=== PATIENT | male | born 1955 | race African-American/Black ===

== ENCOUNTER → 2016-12-25 | Outpatient (CLI) | payer MEDICARE, MEDICAID | LOC: RAD 16:02 | PROVIDERS: ATTEND Physician Assistant | DX: M25.512 Pain in left shoulder (principal) ==

== ENCOUNTER → 2017-02-21 | Outpatient (CLI) | payer MEDICARE, MEDICAID | LOC: RAD 15:03 | PROVIDERS: ATTEND Specialist | DX: C90.02 Multiple myeloma in relapse (principal) | CPT/HCPCS: 77075 ==

== ENCOUNTER → 2017-07-01 | Outpatient (CLI) | payer MEDICARE, MEDICAID ==
[2017-07-01 12:49] LABS: HEMATOCRIT 43.6 % (37.9-51.0); HEMOGLOBIN 14.5 g/dL (13.5-17.0); HGB HCT DIFFERENCE -0.1; MEAN CORPUSCULAR HGB CONC 33.2 g/dL (32.0-36.0); MEAN CORPUSCULAR VOLUME 93 fl (80-97); RED BLOOD COUNT 4.67 10^6/uL (4.35-5.55); RED CELL DISTRIBUTION WIDTH 13.8 % (11.5-14.0); WHITE BLOOD COUNT 5.5 10^3/uL (4.0-10.5)
[2017-07-01 13:12] LABS: APPEARANCE,URINE CLEAR; BILIRUBIN,URINE NEGATIVE (NEGATIVE); GLUCOSE, URINE 50 mg/dL (NEGATIVE); KETONES,URINE NEGATIVE (NEGATIVE); LEUKOCYTE ESTERASE,URINE NEGATIVE (NEGATIVE); NITRITE,URINE NEGATIVE (NEGATIVE); PROTEIN,URINE 100 mg/dL (NEGATIVE); URINE SPECIFIC GRAVITY 1.013; UROBILINOGEN,URINE NEGATIVE mg/dL (<2.0)
[2017-07-01 13:16] LABS: ANION GAP 10 (5-19); BLOOD UREA NITROGEN 18 mg/dL (7-20); CALCIUM 8.3 mg/dL (8.4-10.2); CARBON DIOXIDE 16 mmol/L (22-30); CHLORIDE 112 mmol/L (98-107); CREATININE RESULT 2.26 mg/dL (0.52-1.25); GLUCOSE 188 mg/dL (75-110); PHOSPHORUS 2.8 mg/dL (2.5-4.5); POTASSIUM 4.2 mmol/L (3.6-5.0); SODIUM 137.9 mmol/L (137-145)
[2017-07-01 13:48] LABS: MAGNESIUM 1.3 mg/dL (1.6-2.3)
[2017-07-01 14:51] LABS: URINE CREATININE 160.1 mg/dL (22-328)
== END ==
LOC: OD 12:13
PROVIDERS: ATTEND Internal Medicine Nephrology
DX: N18.4 Chronic kidney disease, stage 4 (severe) (principal); E11.9 Type 2 diabetes mellitus without complications; R80.9 Proteinuria, unspecified; E83.42 Hypomagnesemia
CPT/HCPCS: 36415; 80048; 81001; 82570; 83735; 83970; 84100; 84156; 85027

== ENCOUNTER → 2017-09-01 | Outpatient (CLI) | payer MEDICARE, MEDICAID ==
[2017-09-01 12:50] LABS: HEMATOCRIT 41.4 % (37.9-51.0); HGB HCT DIFFERENCE 0.6; MEAN CORPUSCULAR HEMOGLOBIN 31.5 pg (27.0-33.4); MEAN CORPUSCULAR HGB CONC 33.9 g/dL (32.0-36.0); MEAN CORPUSCULAR VOLUME 93 fl (80-97); RED BLOOD COUNT 4.46 10^6/uL (4.35-5.55); RED CELL DISTRIBUTION WIDTH 14.4 % (11.5-14.0); WHITE BLOOD COUNT 4.5 10^3/uL (4.0-10.5)
[2017-09-01 13:21] LABS: ANION GAP 12 (5-19); BLOOD UREA NITROGEN 21 mg/dL (7-20); CALCIUM 8.3 mg/dL (8.4-10.2); CARBON DIOXIDE 18 mmol/L (22-30); CHLORIDE 112 mmol/L (98-107); CREATININE RESULT 1.95 mg/dL (0.52-1.25); GLUCOSE 233 mg/dL (75-110); MAGNESIUM 1.7 mg/dL (1.6-2.3); PHOSPHORUS 2.2 mg/dL (2.5-4.5); POTASSIUM 5.5 mmol/L (3.6-5.0); SODIUM 142.2 mmol/L (137-145)
== END ==
LOC: OD 11:07
PROVIDERS: ATTEND Internal Medicine Nephrology
DX: E11.22 Type 2 diabetes mellitus with diabetic chronic kidney disease (principal); I12.0 Hypertensive chronic kidney disease with stage 5 chronic kidney disease or end stage renal disease; N18.5 Chronic kidney disease, stage 5; R80.9 Proteinuria, unspecified; E83.42 Hypomagnesemia
CPT/HCPCS: 36415; 80048; 83735; 83970; 84100; 85027

== ENCOUNTER → 2017-10-19 | Outpatient (CLI) | payer MEDICARE, MEDICAID ==
[2017-10-19 14:26] LABS: HEMATOCRIT 39.1 % (37.9-51.0); HEMOGLOBIN 13.1 g/dL (13.5-17.0); HGB HCT DIFFERENCE 0.2; MEAN CORPUSCULAR HGB CONC 33.4 g/dL (32.0-36.0); MEAN CORPUSCULAR VOLUME 93 fl (80-97); RED BLOOD COUNT 4.21 10^6/uL (4.35-5.55); RED CELL DISTRIBUTION WIDTH 14.6 % (11.5-14.0); WHITE BLOOD COUNT 5.6 10^3/uL (4.0-10.5)
[2017-10-19 14:50] LABS: ANION GAP 14 (5-19); BLOOD UREA NITROGEN 22 mg/dL (7-20); CALCIUM 7.8 mg/dL (8.4-10.2); CARBON DIOXIDE 19 mmol/L (22-30); CHLORIDE 111 mmol/L (98-107); CREATININE RESULT 2.48 mg/dL (0.52-1.25); GLUCOSE 159 mg/dL (75-110); POTASSIUM 3.8 mmol/L (3.6-5.0); SODIUM 143.9 mmol/L (137-145)
[2017-10-19 14:59] LABS: MAGNESIUM 1.2 mg/dL (1.6-2.3)
== END ==
LOC: OD 13:18
PROVIDERS: ATTEND Internal Medicine Nephrology
DX: N18.4 Chronic kidney disease, stage 4 (severe) (principal); E87.5 Hyperkalemia; E83.42 Hypomagnesemia; E11.9 Type 2 diabetes mellitus without complications
CPT/HCPCS: 36415; 80048; 83735; 85027

== ENCOUNTER → 2017-11-23 | Outpatient (CLI) | payer MEDICARE, MEDICAID ==
[2017-11-23 14:20] LABS: ANION GAP 11 (5-19); BLOOD UREA NITROGEN 16 mg/dL (7-20); CALCIUM 8.5 mg/dL (8.4-10.2); CARBON DIOXIDE 21 mmol/L (22-30); CHLORIDE 109 mmol/L (98-107); GLUCOSE 334 mg/dL (75-110); MAGNESIUM 1.4 mg/dL (1.6-2.3); PHOSPHORUS 3.8 mg/dL (2.5-4.5); POTASSIUM 4.5 mmol/L (3.6-5.0); SODIUM 140.9 mmol/L (137-145)
== END ==
LOC: OD 13:19
PROVIDERS: ATTEND Internal Medicine Nephrology
DX: I12.9 Hypertensive chronic kidney disease with stage 1 through stage 4 chronic kidney disease, or unspecified chronic kidney disease (principal); N18.4 Chronic kidney disease, stage 4 (severe); E11.9 Type 2 diabetes mellitus without complications; E83.42 Hypomagnesemia
CPT/HCPCS: 36415; 80048; 83735; 83970; 84100

== ENCOUNTER → 2018-01-25 | Outpatient (CLI) | payer MEDICARE, MEDICAID ==
[2018-01-25 12:44] LABS: HEMATOCRIT 39.5 % (37.9-51.0); HEMOGLOBIN 13.1 g/dL (13.5-17.0); MEAN CORPUSCULAR HEMOGLOBIN 30.1 pg (27.0-33.4); MEAN CORPUSCULAR VOLUME 91 fl (80-97); PLATELET COUNT 220 10^3/uL (150-450); RED BLOOD COUNT 4.34 10^6/uL (4.35-5.55); RED CELL DISTRIBUTION WIDTH 14.3 % (11.5-14.0); WHITE BLOOD COUNT 5.9 10^3/uL (4.0-10.5)
[2018-01-25 13:00] LABS: ANION GAP 11 (5-19); BLOOD UREA NITROGEN 18 mg/dL (7-20); CALCIUM 8.7 mg/dL (8.4-10.2); CARBON DIOXIDE 22 mmol/L (22-30); CHLORIDE 109 mmol/L (98-107); GLUCOSE 130 mg/dL (75-110); PHOSPHORUS 3.6 mg/dL (2.5-4.5); POTASSIUM 4.5 mmol/L (3.6-5.0)
[2018-01-25 13:02] LABS: APPEARANCE,URINE CLEAR; BILIRUBIN,URINE NEGATIVE (NEGATIVE); COLOR,URINE STRAW; GLUCOSE, URINE NEGATIVE (NEGATIVE); KETONES,URINE NEGATIVE (NEGATIVE); LEUKOCYTE ESTERASE,URINE NEGATIVE (NEGATIVE); NITRITE,URINE NEGATIVE (NEGATIVE); PROTEIN,URINE 100 mg/dL (NEGATIVE); URINE SPECIFIC GRAVITY 1.008; UROBILINOGEN,URINE NEGATIVE mg/dL (<2.0)
== END ==
LOC: OD 11:48
PROVIDERS: ATTEND Physician Assistant Medical
DX: I12.9 Hypertensive chronic kidney disease with stage 1 through stage 4 chronic kidney disease, or unspecified chronic kidney disease (principal); N18.3 Chronic kidney disease, stage 3 (moderate); E83.42 Hypomagnesemia; E87.5 Hyperkalemia
CPT/HCPCS: 36415; 80048; 81001; 83735; 83970; 84100; 85027

== ENCOUNTER → 2018-03-08 | Outpatient (CLI) | payer MEDICARE, MEDICAID ==
[2018-03-08 16:54] LABS: HEMATOCRIT 40.6 % (37.9-51.0); HEMOGLOBIN 13.5 g/dL (13.5-17.0); MEAN CORPUSCULAR HEMOGLOBIN 30.1 pg (27.0-33.4); MEAN CORPUSCULAR HGB CONC 33.3 g/dL (32.0-36.0); MEAN CORPUSCULAR VOLUME 90 fl (80-97); PLATELET COUNT 156 10^3/uL (150-450); RED BLOOD COUNT 4.49 10^6/uL (4.35-5.55); RED CELL DISTRIBUTION WIDTH 15.3 % (11.5-14.0); WHITE BLOOD COUNT 6.1 10^3/uL (4.0-10.5)
[2018-03-08 17:13] LABS: APPEARANCE,URINE CLEAR; BILIRUBIN,URINE NEGATIVE (NEGATIVE); COLOR,URINE YELLOW; GLUCOSE, URINE 150 mg/dL (NEGATIVE); KETONES,URINE NEGATIVE (NEGATIVE); LEUKOCYTE ESTERASE,URINE NEGATIVE (NEGATIVE); NITRITE,URINE NEGATIVE (NEGATIVE); PROTEIN,URINE 100 mg/dL (NEGATIVE); URINE SPECIFIC GRAVITY 1.012; UROBILINOGEN,URINE NEGATIVE mg/dL (<2.0)
[2018-03-08 17:18] LABS: ANION GAP 15 (5-19); BLOOD UREA NITROGEN 21 mg/dL (7-20); CALCIUM 8.6 mg/dL (8.4-10.2); CARBON DIOXIDE 19 mmol/L (22-30); CHLORIDE 111 mmol/L (98-107); GLUCOSE 167 mg/dL (75-110); PHOSPHORUS 2.9 mg/dL (2.5-4.5); POTASSIUM 4.4 mmol/L (3.6-5.0); SODIUM 145.4 mmol/L (137-145)
== END ==
LOC: OD 16:25
PROVIDERS: ATTEND Internal Medicine Nephrology
DX: I12.9 Hypertensive chronic kidney disease with stage 1 through stage 4 chronic kidney disease, or unspecified chronic kidney disease (principal); N18.3 Chronic kidney disease, stage 3 (moderate); E87.5 Hyperkalemia; E83.42 Hypomagnesemia
CPT/HCPCS: 36415; 80048; 81001; 83735; 83970; 84100; 85027

== ENCOUNTER → 2018-04-19 | Outpatient (CLI) | payer MEDICARE, MEDICAID ==
[2018-04-19 17:43] LABS: ANION GAP 11 (5-19); BLOOD UREA NITROGEN 29 mg/dL (7-20); CARBON DIOXIDE 18 mmol/L (22-30); CHLORIDE 112 mmol/L (98-107); GLUCOSE 236 mg/dL (75-110); POTASSIUM 3.9 mmol/L (3.6-5.0); SODIUM 140.9 mmol/L (137-145)
== END ==
LOC: OD 16:27
PROVIDERS: ATTEND Physician Assistant Medical
DX: E83.42 Hypomagnesemia (principal); E83.51 Hypocalcemia; N18.3 Chronic kidney disease, stage 3 (moderate)
CPT/HCPCS: 36415; 80048; 83735

== ENCOUNTER 2018-04-20 16:16 | Emergency (ER) | payer MEDICARE, MEDICAID ==
--- NOTE | 2018-04-20 17:18 | ER Document Report ---
ED Medical Screen (RME) - General Mode of Arrival: Ambulatory Information source: Patient TRAVEL OUTSIDE OF THE [place] IN LAST 30 DAYS: No <SELINA LAO - Last Filed: 04/20/18 21:24> <BRENDAN FLORES - Last Filed: 04/20/18 21:30> - General Chief Complaint: Thigh Pain Stated Complaint: LEG PAIN Time Seen by Provider: 04/20/18 17:05 Notes: Patient is a 62-year-old male that was sent in from urgent care to rule out DVT in the right lower extremity. Patient states that for the last 3 nights from about [id number] he has been awoken with right thigh pain. Patient denies flank pain, dysuria, constipation, leg swelling, chest pain, shortness of breath, long trips, recent surgeries, or hormone usage. Review of systems: Constitutional: No symptoms reported EENT: No symptoms reported Cardiovascular: No symptoms reported Respiratory: No symptoms reported Gastrointestinal: No symptoms reported Genitourinary: No symptoms reported Musculoskeletal: Right thigh pain. Skin: No symptoms reported Hematologic/Lymphatic: No symptoms reported Neurological/Psychological: No symptoms reported Yes All other systems reviewed and negative PHYSICAL EXAM GENERAL: Alert, interacts well. No acute distress. HEAD: Normocephalic, atraumatic. EYES: Pupils equal, round, and reactive to light. Extraocular movements intact. ENT: Oral mucosa moist, tongue midline. NECK: Full range of motion. Supple. Trachea midline. LUNGS: Clear to auscultation bilaterally, no wheezes, rales, or rhonchi. No respiratory distress. HEART: Regular rate and rhythm. No murmurs, gallops, or rubs. ABDOMEN: Soft, non-tender. Non-distended. Bowel sounds present in all 4 quadrants. No guarding, rigidity, or rebound. EXTREMITIES: Moves all 4 extremities spontaneously. 1+ pitting edema to bilateral lower extremities. radial and dorsalis pedis pulses 2/4 bilaterally. No cyanosis. No tenderness with palpation on examination of the right thigh. Unable to reproduce pain with ROM. NEUROLOGICAL: Alert and oriented x3. Normal speech. PSYCH: Normal affect, normal mood. SKIN: Warm, dry, normal turgor. No rashes or lesions noted. (SELINA LAO) - Related Data Allergies/Adverse Reactions: No Known Allergies Allergy (Verified 04/20/18 16:17) Past Medical History - Social History Chew tobacco use (# tins/day): No Frequency of alcohol use: None Drug Abuse: None - Past Medical History Cardiac Medical History: Reports: Hx Hypertension Denies: Hx Coronary Artery Disease, Hx Heart Attack Pulmonary Medical History: Denies: Hx Asthma, Hx Bronchitis, Hx COPD, Hx Pneumonia Neurological Medical History: Reports: Hx Seizures. Denies: Hx Cerebrovascular Accident Endocrine Medical History: Reports: Hx Diabetes Mellitus Type 1, Hx Diabetes Mellitus Type 2 Renal/ Medical History: Denies: Hx Peritoneal Dialysis Musculoskeltal Medical History: Reports Hx Arthritis - shoulder Past Surgical History: Reports: Hx Orthopedic Surgery - toe - Immunizations Hx Diphtheria, Pertussis, Tetanus Vaccination: No <SELINA LAO - Last Filed: 04/20/18 21:24> - Vital signs Vitals: Temp Pulse Resp BP Pulse Ox 98.3 F 49 L 17 212/90 H 98 04/20/18 16:27 04/20/18 16:27 04/20/18 16:27 04/20/18 16:27 04/20/18 16:27 Course - Laboratory Result Diagrams: 04/20/18 17:45 04/20/18 17:45 <SELINA LAO - Last Filed: 04/20/18 21:24> - Laboratory Result Diagrams: 04/20/18 17:45 04/20/18 17:45 <BRENDAN FLORES - Last Filed: 04/20/18 21:30> - Re-evaluation Re-evalutation: 04/20/18 19:47 CBC unremarkable, coags normal, chemistries reveal mild dehydration with a CO2 slightly low 21, BUN and creatinine are chronically elevated no significant change from normal, glucose elevated 248 consistent with history of diabetes that is not well controlled. Doppler ultrasound of the right leg was negative. At present I do not have an exact explanation for why he is having right upper inner thigh pain although it does follow approximately the L2 distribution. Does not radiate beyond the knee. No numbness, tingling, weakness. No bowel or bladder dysfunction. No history of trauma. No difficulty walking. No evidence of shingles. (BRENDAN FLORES) - Vital Signs Vital signs: Temp Pulse Resp BP Pulse Ox 97.7 F 51 L 18 199/79 H 100 04/20/18 20:17 04/20/18 20:17 04/20/18 20:17 04/20/18 20:17 04/20/18 20:17 - Laboratory Laboratory results interpreted by me: 04/20/18 04/20/18 17:45 17:45 RDW 14.5 H Chloride 109 H Carbon Dioxide 21 L BUN 30 H Creatinine 2.81 H Est GFR ( Amer) 28 L Est GFR (Non-Af Amer) 23 L Glucose 248 H Doctor's Discharge <SELINA LAO - Last Filed: 04/20/18 21:24> <BRENDAN FLORES - Last Filed: 04/20/18 21:30> - Discharge Clinical Impression: Right thigh pain Condition: Stable Disposition: HOME, SELF-CARE Additional Instructions: Today we did not find a blood clot on your leg on ultrasound. I do not know exactly what is causing your pain. Your pain could be coming from a variety of things including an early sign of shingles without the rash or a pinched nerve in your back that is causing pain to go to your leg. Please return to the emergency department should you develop fevers, difficulty walking, rash on your leg where it is painful, numbness or tingling or difficulty urinating or having a bowel movement or any new or concerning symptoms. Today your blood pressure was quite high. [facility] It will need retirement management Referrals: MOSES LOPEZ PA-C [ALLIED HEALTH PROFESSIONAL] - Follow up as needed Scribe Documentation - Scribe Written by Ryan:: Ryan Duncan, 04/20/2018 1717 acting as scribe for :: Velia <SELINA LAO - Last Filed: 04/20/18 21:24>
[2018-04-20 18:00] LABS: ABSOLUTE BASOPHILS # (AUTO) 0.1 10^3/uL (0.0-0.2); ABSOLUTE EOSINOPHILS # (AUTO) 0.1 10^3/uL (0.0-0.6); ABSOLUTE LYMPHOCYTES (AUTO) 2.5 10^3/uL (0.5-4.7); ABSOLUTE MONOCYTES (AUTO) 0.4 10^3/uL (0.1-1.4); ABSOLUTE NEUT (AUTO) 3.3 10^3/uL (1.7-8.2); BASOPHILS % (AUTO) 1.2 % (0-2); EOSINOPHILS % (AUTO) 2.3 % (0-6); HEMATOCRIT 44.7 % (37.9-51.0); HEMOGLOBIN 14.9 g/dL (13.5-17.0); LYMPHOCYTES % (AUTO) 39.4 % (13-45); MEAN CORPUSCULAR HEMOGLOBIN 30.5 pg (27.0-33.4); MEAN CORPUSCULAR HGB CONC 33.4 g/dL (32.0-36.0); MEAN CORPUSCULAR VOLUME 91 fl (80-97); MONOCYTES % (AUTO) 6.3 % (3-13); PLATELET COUNT 182 10^3/uL (150-450); RED BLOOD COUNT 4.89 10^6/uL (4.35-5.55); RED CELL DISTRIBUTION WIDTH 14.5 % (11.5-14.0); SEGMENTED NEUTROPHILS % (AUTO) 50.8 % (42-78); TOTAL CELLS COUNTED % (AUTO) 100 %; WHITE BLOOD COUNT 6.4 10^3/uL (4.0-10.5)
[2018-04-20 18:10] LABS: INTERNATIONAL RATION (INR) 1.03; PARTIAL THROMBOPLASTIN TIME 27.7 SEC (23.5-35.8); PROTHROMBIN TIME 14.1 SEC (11.4-15.4)
[2018-04-20 18:20] LABS: ANION GAP 13 (5-19); BLOOD UREA NITROGEN 30 mg/dL (7-20); CALCIUM 8.9 mg/dL (8.4-10.2); CARBON DIOXIDE 21 mmol/L (22-30); CHLORIDE 109 mmol/L (98-107); GLUCOSE 248 mg/dL (75-110); POTASSIUM 4.1 mmol/L (3.6-5.0)
[2018-04-20 20:18] VITALS: BP 199/79
--- NOTE | 2018-04-21 08:38 | XCELERA REPORT ---
[address] [address] Lower Extremity Venous Evaluation Name: JUAN ROSSI Age: 62 yrs Gender: Male : 1955 Patient Status: Preadmit Patient Location: ER Study Date: 04/20/2018 06:28 PM Procedure: Color flow and duplex imaging of the veins of the right lower extremity as well as the left Common Femoral vein. Reason For Study: right thigh pain Ordering Physician: BRENDAN FLORES Performed By: Etelvina Love Right Sided Venous Evaluation Normal vessel filling wall to wall, compression and augmentation as well as Colour flow down to the infrageniculate veins. Left Sided Venous Evaluation The left common femoral vein is fully compressible. Spontaneous and phasic flow is present in the left common femoral vein. Swirling blood noted in CFV, Colour flow useful in identifying this. Interpretation Summary No duplex evidence of DVT or obstruction in the right lower extremity nor in the left Common Femoral vein. : BRENDAN FLORES > Adriano Franklin
== END 2018-04-20 20:18 | disposition home or self-care (01) ==
LOC: ER 16:16
DX: M79.651 Pain in right thigh (principal); I10 Essential (primary) hypertension; E11.9 Type 2 diabetes mellitus without complications
CPT/HCPCS: 36415; 80048; 85025; 85610; 85730; 93971; 99284

== ENCOUNTER → 2018-04-26 | Outpatient (CLI) | payer MEDICARE, MEDICAID ==
--- NOTE | 2018-04-26 12:15 | RADIOLOGY REPORT (SQ) ---
EXAM DESCRIPTION: FEMUR RIGHT COMPLETED DATE/TIME: 04/26/2018 12:05 pm REASON FOR STUDY: PAIN IN RIGHT LEG COMPARISON: Right hip films same date NUMBER OF VIEWS: Two views. TECHNIQUE: Two radiographic images acquired of the right femur to include hip and knee in at least o ne projection. LIMITATIONS: None. FINDINGS: MINERALIZATION: Normal. BONES: No acute fracture. No worrisome bone lesions. SOFT TISSUES: No obvious swelling or foreign body. OTHER: No other significant finding. IMPRESSION: NEGATIVE STUDY OF THE RIGHT FEMUR. NO RADIOGRAPHIC EVIDENCE OF ACUTE INJURY. TECHNICAL DOCUMENTATION: JOB ID: [id number] [employer]- All Rights Reserved Reading location - IP/workstation name: [email or web address]
--- NOTE | 2018-04-26 12:24 | RADIOLOGY REPORT (SQ) ---
EXAM DESCRIPTION: HIP RIGHT AP/LATERAL COMPLETED DATE/TIME: 04/26/2018 12:05 pm REASON FOR STUDY: PAIN IN RIGHT LEG COMPARISON: None. NUMBER OF VIEWS: Two views. TECHNIQUE: AP pelvis and additional frog-leg view of the right hip. LIMITATIONS: None. FINDINGS: MINERALIZATION: Normal. RIGHT HIP: No fracture or dislocation. No worrisome bone lesions. LEFT HIP: No fracture or dislocation. No worrisome bone lesions. PUBIS AND ISCHIUM: No fracture. PELVIS: No fracture. SACRUM: No fracture or dislocation. No worrisome bone lesions. LOWER LUMBAR SPINE: No fracture or dislocation. No worrisome bone lesions. No significant disc disea se. SOFT TISSUES: No findings. OTHER: Moderate amount of fecal material is identified in the colon. IMPRESSION: NEGATIVE STUDY OF THE RIGHT HIP. NO RADIOGRAPHIC EVIDENCE OF ACUTE INJURY. TECHNICAL DOCUMENTATION: JOB ID: [id number] [employer]- All Rights Reserved Reading location - IP/workstation name: [email or web address]
== END ==
LOC: RAD 11:35
PROVIDERS: ATTEND Physician Assistant
DX: M79.604 Pain in right leg (principal)

== ENCOUNTER 2018-06-05 16:22 | Emergency (ER) | payer MEDICARE, MEDICAID ==
--- NOTE | 2018-06-05 17:59 | ER Document Report ---
ED Medical Screen (RME) - General Chief Complaint: Abnormal Lab Results Stated Complaint: ABNORMAL LABS Time Seen by Provider: 06/05/18 17:51 Notes: pt sent to ED for high K+ of 6.3. Denies CP, denies n/v/d, reports leg pains for one month. Consulted dr martinez with ekg, c/o, advised repeat labs. TRAVEL OUTSIDE OF THE [place] IN LAST 30 DAYS: No - Related Data Allergies/Adverse Reactions: No Known Allergies Allergy (Verified 06/05/18 16:25) Past Medical History - Past Medical History Cardiac Medical History: Reports: Hx Hypertension Denies: Hx Coronary Artery Disease, Hx Heart Attack Pulmonary Medical History: Denies: Hx Asthma, Hx Bronchitis, Hx COPD, Hx Pneumonia Neurological Medical History: Reports: Hx Seizures. Denies: Hx Cerebrovascular Accident Endocrine Medical History: Reports: Hx Diabetes Mellitus Type 1, Hx Diabetes Mellitus Type 2 Renal/ Medical History: Denies: Hx Peritoneal Dialysis Musculoskeltal Medical History: Reports Hx Arthritis - shoulder Past Surgical History: Reports: Hx Orthopedic Surgery - toe - Immunizations Hx Diphtheria, Pertussis, Tetanus Vaccination: No Physical Exam - Vital signs Vitals: Temp Pulse Resp BP 99.1 F 84 20 138/81 H 06/05/18 17:41 06/05/18 17:41 06/05/18 17:41 06/05/18 17:41 Course - Vital Signs Vital signs: Temp Pulse Resp BP Pulse Ox 99.1 F 84 20 138/81 H 06/05/18 17:41 06/05/18 17:41 06/05/18 17:41 06/05/18 17:41 Doctor's Discharge - Discharge Referrals: MOSES LOPEZ PA-C [Primary Care Provider] - Follow up as needed
--- NOTE | 2018-06-05 20:20 | ER Document Report ---
ED General - General Chief Complaint: Abnormal Lab Results Stated Complaint: ABNORMAL LABS Time Seen by Provider: 06/05/18 17:51 Mode of Arrival: Ambulatory Information source: Patient Notes: This is a 62-year-old male with a history of hypertension, diabetes and chronic kidney disease is referred to the emergency room because of an elevated potassium. Patient denies any illnesses lately. Denies fever, chills, nausea vomiting. TRAVEL OUTSIDE OF THE [place] IN LAST 30 DAYS: No - HPI Onset: Just prior to arrival Onset/Duration: Gradual Quality of pain: No pain Severity: None Pain Level: Denies Associated symptoms: denies: Chest pain, Diarrhea, Fever, Nausea, Vomiting, Shortness of breath Exacerbated by: Denies Relieved by: Denies Similar symptoms previously: Yes Recently seen / treated by doctor: Yes - Related Data Allergies/Adverse Reactions: No Known Allergies Allergy (Verified 06/05/18 16:25) Past Medical History - General Information source: Patient - Social History Smoking Status: Never Smoker Cigarette use (# per day): No Chew tobacco use (# tins/day): No Frequency of alcohol use: None Drug Abuse: None Lives with: Family Family History: Reviewed & Not Pertinent Patient has suicidal ideation: No Patient has homicidal ideation: No - Past Medical History Cardiac Medical History: Reports: Hx Hypertension Denies: Hx Coronary Artery Disease, Hx Heart Attack Pulmonary Medical History: Denies: Hx Asthma, Hx Bronchitis, Hx COPD, Hx Pneumonia Neurological Medical History: Reports: Hx Seizures. Denies: Hx Cerebrovascular Accident Endocrine Medical History: Reports: Hx Diabetes Mellitus Type 1, Hx Diabetes Mellitus Type 2 Renal/ Medical History: Denies: Hx Peritoneal Dialysis Musculoskeletal Medical History: Reports Hx Arthritis - shoulder Past Surgical History: Reports: Hx Orthopedic Surgery - toe - Immunizations Hx Diphtheria, Pertussis, Tetanus Vaccination: No Review of Systems - Review of Systems Constitutional: denies: Chills, Fever EENT: No symptoms reported Cardiovascular: No symptoms reported Respiratory: No symptoms reported Gastrointestinal: See HPI Genitourinary: No symptoms reported Male Genitourinary: No symptoms reported Musculoskeletal: No symptoms reported Skin: No symptoms reported Hematologic/Lymphatic: No symptoms reported Neurological/Psychological: No symptoms reported Physical Exam - Vital signs Vitals: Temp Pulse Resp BP 99.1 F 84 20 138/81 H 06/05/18 17:41 06/05/18 17:41 06/05/18 17:41 06/05/18 17:41 Notes: Physical exam: GENERAL: 82-year-old man, alert and oriented 3, no acute distress HEAD: Atraumatic, normocephalic. EYES: Pupils equal round and reactive to light, extraocular movements intact, sclera anicteric, conjunctiva are normal. ENT: TMs normal, nares patent, oropharynx clear without exudates. Moist mucous membranes. NECK: Normal range of motion, supple without obvious mass or JVD. LUNGS: Breath sounds clear to auscultation bilaterally and equal. No wheezes rales or rhonchi. HEART: Regular rate and rhythm without murmurs, rubs or gallops. ABDOMEN: Soft, normoactive bowel sounds. No tenderness to palpation. No guarding, no rebound. No masses appreciated. EXTREMITIES: Normal range of motion, no pitting or edema. No clubbing or cyanosis. NEUROLOGICAL: Cranial nerves II through XII grossly intact. Normal speech, moving all extremities. PSYCH: Normal mood, normal affect. SKIN: Warm, Dry, normal turgor, no rashes or lesions noted. Course - Re-evaluation Re-evalutation: 06/05/18 23:32 Note: Patient's initial potassium was 6.3. On repeat it was 5.7. The EKG shows no hyperacute T waves. Patient was given insulin, D50, Kayexalate. He has remained asymptomatic his vital signs have been stable. Discussed case with Dr. Hendricks who recommends the seeing the benazepril, calcium sandhya for blood pressure, Kayexalate. He wants to see the patient in the office in the morning. He will recommend repeating the potassium in the a.m. before his appointment. - Vital Signs Vital signs: Temp Pulse Resp BP Pulse Ox 99.1 F 84 19 184/90 H 100 06/05/18 17:41 06/05/18 17:41 06/05/18 21:00 06/05/18 20:53 06/05/18 21:00 - Laboratory Result Diagrams: 06/05/18 19:55 06/05/18 19:55 Laboratory results interpreted by me: 06/05/18 19:55 Potassium 5.7 H Carbon Dioxide 21 L BUN 37 H Creatinine 2.83 H Est GFR ( Amer) 28 L Est GFR (Non-Af Amer) 23 L Glucose 300 H Alkaline Phosphatase 139 H - EKG Interpretation by Me Rate: Normal Rhythm: NSR - EKG shows normal sinus rhythm with a ventricular rate of 81, no acute ST-T wave changes. No hyperacute T waves Discharge - Discharge Clinical Impression: Hyperkalemia Condition: Stable Disposition: HOME, SELF-CARE Additional Instructions: As we discussed, to come back to the [facility] for potassium test first thing in the morning. I did discuss your lab values with Dr. Hendricks who wants to see you in the office tomorrow. I want you to stop the blood pressure medicine (Benazepril/HCTZ) because the benazepril can sometimes increase the potassium. Start taking the Cardizem CD for your blood pressure. Return to the emergency room for any concerns that she getting worse: Vomiting, nausea, not feeling right. Whenever you getting antibiotics or any new medicines, tell the doctors that she had a problem with an elevated potassium in the past. Prescriptions: Diltiazem HCl [Cardizem Cd 120 mg Capsule] 1 cap.sr PO DAILY #30 cap.sr Sodium Polystyrene Sulfonate [Kayexalate 15 Gm/60 Ml Susp 60 Ml] 15 gm PO Q6 3 Days #3 bottle Forms: Follow-Up Laboratory Testing Referrals: MOSES LOPEZ PA-C [ALLIED HEALTH PROFESSIONAL] - Follow up as needed Franky HENDRICKS MD [ACTIVE STAFF] - Follow up tomorrow
[2018-06-05 20:30] LABS: ABSOLUTE BASOPHILS # (AUTO) 0.1 10^3/uL (0.0-0.2); ABSOLUTE EOSINOPHILS # (AUTO) 0.1 10^3/uL (0.0-0.6); ABSOLUTE MONOCYTES (AUTO) 0.5 10^3/uL (0.1-1.4); ABSOLUTE NEUT (AUTO) 4.6 10^3/uL (1.7-8.2); BASOPHILS % (AUTO) 0.9 % (0-2); EOSINOPHILS % (AUTO) 1.4 % (0-6); HEMATOCRIT 40.7 % (37.9-51.0); HEMOGLOBIN 13.5 g/dL (13.5-17.0); LYMPHOCYTES % (AUTO) 36.4 % (13-45); MEAN CORPUSCULAR HEMOGLOBIN 30.3 pg (27.0-33.4); MEAN CORPUSCULAR HGB CONC 33.3 g/dL (32.0-36.0); MEAN CORPUSCULAR VOLUME 91 fl (80-97); PLATELET COUNT 356 10^3/uL (150-450); RED BLOOD COUNT 4.48 10^6/uL (4.35-5.55); RED CELL DISTRIBUTION WIDTH 13.5 % (11.5-14.0); SEGMENTED NEUTROPHILS % (AUTO) 55.3 % (42-78); TOTAL CELLS COUNTED % (AUTO) 100 %; WHITE BLOOD COUNT 8.3 10^3/uL (4.0-10.5)
[2018-06-05 20:38] LABS: ALANINE AMINOTRANSFERASE 60 U/L (21-72); ALBUMIN 4.2 g/dL (3.5-5.0); ALKALINE PHOSPHATASE 139 U/L (38-126); ANION GAP 12 (5-19); ASPARTATE AMINO TRANSFERASE 45 U/L (17-59); BILIRUBIN,DIRECT 0.4 mg/dL (0.0-0.4); BILIRUBIN,TOTAL 0.4 mg/dL (0.2-1.3); BLOOD UREA NITROGEN 37 mg/dL (7-20); CALCIUM 9.6 mg/dL (8.4-10.2); CARBON DIOXIDE 21 mmol/L (22-30); CHLORIDE 104 mmol/L (98-107); GLUCOSE 300 mg/dL (75-110); POTASSIUM 5.7 mmol/L (3.6-5.0); SODIUM 137.2 mmol/L (137-145); TOTAL PROTEIN 7.4 g/dL (6.3-8.2)
[2018-06-05] MEDS ORDERED: DEXTROSE 50%-WATER 25 GM/50 ML DISP.SYRIN IV ONE (21:14)
[2018-06-05] MEDS ORDERED: SODIUM POLYSTYRENE SULFONATE 15 GM/60 ML PO ONE (21:14)
[2018-06-05] MEDS ORDERED: INSULIN REG, HUMAN 100 UNIT/ML 3 ML VIAL (PYX) IV ONE (21:14)
--- NOTE | 2018-06-05 22:06 | EKG REPORT ---
SEVERITY:- NORMAL ECG - SINUS RHYTHM : Confirmed by: Jovanna Riggins MD 05-Jun-2018 22:05:51
[2018-06-06 00:08] VITALS: BP 150/78
== END 2018-06-06 00:04 | disposition home or self-care (01) ==
LOC: ER 16:22
DX: E87.5 Hyperkalemia (principal); I10 Essential (primary) hypertension; E11.9 Type 2 diabetes mellitus without complications
CPT/HCPCS: 93005; 99284; 96374; 36415; 83735; 84100; 84156; 82570; 85025; 85027; 80048; 80053; 83970; 93010; J3490; A9270; J1815

== ENCOUNTER → 2018-06-05 | Outpatient (CLI) | payer MEDICARE, MEDICAID ==
[2018-06-05 12:38] LABS: HEMATOCRIT 37.5 % (37.9-51.0); HEMOGLOBIN 12.7 g/dL (13.5-17.0); MEAN CORPUSCULAR HEMOGLOBIN 30.2 pg (27.0-33.4); MEAN CORPUSCULAR HGB CONC 33.9 g/dL (32.0-36.0); MEAN CORPUSCULAR VOLUME 89 fl (80-97); PLATELET COUNT 321 10^3/uL (150-450); RED CELL DISTRIBUTION WIDTH 13.4 % (11.5-14.0); WHITE BLOOD COUNT 7.3 10^3/uL (4.0-10.5)
[2018-06-05 13:50] LABS: ANION GAP 10 (5-19); BLOOD UREA NITROGEN 39 mg/dL (7-20); CALCIUM 8.9 mg/dL (8.4-10.2); CARBON DIOXIDE 22 mmol/L (22-30); CHLORIDE 105 mmol/L (98-107); GLUCOSE 216 mg/dL (75-110); PHOSPHORUS 4.8 mg/dL (2.5-4.5); SODIUM 137.3 mmol/L (137-145)
[2018-06-05 13:54] LABS: POTASSIUM 6.3 mmol/L (3.6-5.0)
[2018-06-05 14:46] LABS: URINE CREATININE 70.1 mg/dL (22-328)
[2018-06-05 14:49] LABS: UR PRO/CREAT RATIO RESULT 3.9 mg/mg (0.0-0.2); URINE PROTEIN 274.4 mg/dL (<12)
== END ==
LOC: OD 11:30
PROVIDERS: ATTEND Physician Assistant Medical
DX: I12.9 Hypertensive chronic kidney disease with stage 1 through stage 4 chronic kidney disease, or unspecified chronic kidney disease (principal); N18.3 Chronic kidney disease, stage 3 (moderate); R80.9 Proteinuria, unspecified; E11.9 Type 2 diabetes mellitus without complications
CPT/HCPCS: 36415; 80048; 82570; 83735; 83970; 84100; 84156; 85027

== ENCOUNTER → 2018-06-06 | Outpatient (CLI) | payer MEDICARE, MEDICAID | LOC: OD 10:55 | PROVIDERS: ATTEND Emergency Medicine | DX: E87.5 Hyperkalemia (principal) | CPT/HCPCS: 36415; 84132 ==

== ENCOUNTER → 2018-09-01 | Outpatient (CLI) | payer MEDICARE, MEDICAID ==
[2018-09-01 15:38] LABS: HEMATOCRIT 38.8 % (37.9-51.0); HEMOGLOBIN 12.9 g/dL (13.5-17.0); MEAN CORPUSCULAR HEMOGLOBIN 31.8 pg (27.0-33.4); MEAN CORPUSCULAR HGB CONC 33.3 g/dL (32.0-36.0); MEAN CORPUSCULAR VOLUME 96 fl (80-97); PLATELET COUNT 188 10^3/uL (150-450); RED BLOOD COUNT 4.06 10^6/uL (4.35-5.55); RED CELL DISTRIBUTION WIDTH 14.1 % (11.5-14.0); WHITE BLOOD COUNT 6.1 10^3/uL (4.0-10.5)
[2018-09-01 15:41] LABS: APPEARANCE,URINE CLEAR; BILIRUBIN,URINE NEGATIVE (NEGATIVE); COLOR,URINE STRAW; GLUCOSE, URINE >=500 mg/dL (NEGATIVE); KETONES,URINE NEGATIVE (NEGATIVE); LEUKOCYTE ESTERASE,URINE NEGATIVE (NEGATIVE); NITRITE,URINE NEGATIVE (NEGATIVE); PROTEIN,URINE 100 mg/dL (NEGATIVE); UROBILINOGEN,URINE NEGATIVE mg/dL (<2.0)
[2018-09-01 16:06] LABS: ANION GAP 11 (5-19); BLOOD UREA NITROGEN 24 mg/dL (7-20); CALCIUM 9.5 mg/dL (8.4-10.2); CARBON DIOXIDE 21 mmol/L (22-30); CHLORIDE 106 mmol/L (98-107); GLUCOSE 338 mg/dL (75-110); PHOSPHORUS 4.5 mg/dL (2.5-4.5); POTASSIUM 4.3 mmol/L (3.6-5.0); SODIUM 137.6 mmol/L (137-145)
== END ==
LOC: OD 14:46
PROVIDERS: ATTEND Physician Assistant Medical
DX: E11.22 Type 2 diabetes mellitus with diabetic chronic kidney disease (principal); I12.9 Hypertensive chronic kidney disease with stage 1 through stage 4 chronic kidney disease, or unspecified chronic kidney disease; N18.4 Chronic kidney disease, stage 4 (severe); E87.5 Hyperkalemia
CPT/HCPCS: 36415; 80048; 81001; 83970; 84100; 85027

== ENCOUNTER → 2019-01-18 | Outpatient (CLI) | payer MEDICARE, MEDICAID ==
[2019-01-18 13:32] LABS: HEMOGLOBIN 13.8 g/dL (13.5-17.0); MEAN CORPUSCULAR HEMOGLOBIN 31.6 pg (27.0-33.4); MEAN CORPUSCULAR HGB CONC 33.6 g/dL (32.0-36.0); MEAN CORPUSCULAR VOLUME 94 fl (80-97); PLATELET COUNT 157 10^3/uL (150-450); RED BLOOD COUNT 4.36 10^6/uL (4.35-5.55); RED CELL DISTRIBUTION WIDTH 14.2 % (11.5-14.0); WHITE BLOOD COUNT 7.5 10^3/uL (4.0-10.5)
[2019-01-18 13:44] LABS: ANION GAP 10 (5-19); BLOOD UREA NITROGEN 42 mg/dL (7-20); CALCIUM 9.6 mg/dL (8.4-10.2); CARBON DIOXIDE 19 mmol/L (22-30); CHLORIDE 107 mmol/L (98-107); GLUCOSE 377 mg/dL (75-110); PHOSPHORUS 3.8 mg/dL (2.5-4.5); POTASSIUM 5.6 mmol/L (3.6-5.0); SODIUM 135.5 mmol/L (137-145)
[2019-01-18 13:50] LABS: APPEARANCE,URINE SLIGHTLY-CLOUDY; BILIRUBIN,URINE NEGATIVE (NEGATIVE); COLOR,URINE YELLOW; GLUCOSE, URINE >=500 mg/dL (NEGATIVE); KETONES,URINE NEGATIVE (NEGATIVE); LEUKOCYTE ESTERASE,URINE NEGATIVE (NEGATIVE); NITRITE,URINE NEGATIVE (NEGATIVE); PROTEIN,URINE 100 mg/dL (NEGATIVE); UROBILINOGEN,URINE NEGATIVE mg/dL (<2.0)
== END ==
LOC: OD 12:55
PROVIDERS: ATTEND Physician Assistant Medical
DX: I12.9 Hypertensive chronic kidney disease with stage 1 through stage 4 chronic kidney disease, or unspecified chronic kidney disease (principal); N18.4 Chronic kidney disease, stage 4 (severe)
CPT/HCPCS: 36415; 80048; 81001; 83970; 84100; 85027

== ENCOUNTER → 2019-01-25 | Outpatient (CLI) | payer MEDICARE, MEDICAID | LOC: OD 10:56 | PROVIDERS: ATTEND Physician Assistant Medical | DX: Z53.9 Procedure and treatment not carried out, unspecified reason (principal) ==

== ENCOUNTER → 2019-02-01 | Outpatient (CLI) | payer MEDICARE, MEDICAID ==
[2019-02-01 12:58] LABS: ABSOLUTE BASOPHILS # (AUTO) 0.1 10^3/uL (0.0-0.2); ABSOLUTE EOSINOPHILS # (AUTO) 0.3 10^3/uL (0.0-0.6); ABSOLUTE LYMPHOCYTES (AUTO) 2.6 10^3/uL (0.5-4.7); ABSOLUTE MONOCYTES (AUTO) 0.5 10^3/uL (0.1-1.4); BASOPHILS % (AUTO) 0.7 % (0-2); EOSINOPHILS % (AUTO) 3.5 % (0-6); HEMATOCRIT 41.1 % (37.9-51.0); HEMOGLOBIN 14.1 g/dL (13.5-17.0); LYMPHOCYTES % (AUTO) 34.8 % (13-45); MEAN CORPUSCULAR HEMOGLOBIN 31.9 pg (27.0-33.4); MEAN CORPUSCULAR HGB CONC 34.4 g/dL (32.0-36.0); MEAN CORPUSCULAR VOLUME 93 fl (80-97); MONOCYTES % (AUTO) 6.9 % (3-13); PLATELET COUNT 165 10^3/uL (150-450); RED BLOOD COUNT 4.43 10^6/uL (4.35-5.55); RED CELL DISTRIBUTION WIDTH 14.1 % (11.5-14.0); SEGMENTED NEUTROPHILS % (AUTO) 54.1 % (42-78); TOTAL CELLS COUNTED % (AUTO) 100 %; WHITE BLOOD COUNT 7.4 10^3/uL (4.0-10.5)
[2019-02-01 13:10] LABS: ALANINE AMINOTRANSFERASE 76 U/L (21-72); ALBUMIN 3.9 g/dL (3.5-5.0); ALKALINE PHOSPHATASE 74 U/L (38-126); ANION GAP 13 (5-19); ASPARTATE AMINO TRANSFERASE 38 U/L (17-59); BILIRUBIN,DIRECT 0.3 mg/dL (0.0-0.4); BILIRUBIN,TOTAL 0.3 mg/dL (0.2-1.3); BLOOD UREA NITROGEN 48 mg/dL (7-20); CARBON DIOXIDE 18 mmol/L (22-30); CHLORIDE 108 mmol/L (98-107); CHOLESTEROL 121.82 mg/dL (0-200); GLUCOSE 147 mg/dL (75-110); POTASSIUM 4.5 mmol/L (3.6-5.0); SODIUM 138.7 mmol/L (137-145); TOTAL PROTEIN 6.5 g/dL (6.3-8.2); TRIGLYCERIDES 91 mg/dL (<150)
[2019-02-01 13:21] LABS: DIRECT LDL 68 mg/dL (<100)
[2019-02-01 15:03] LABS: ANION GAP 13 (5-19); BLOOD UREA NITROGEN 48 mg/dL (7-20); CARBON DIOXIDE 18 mmol/L (22-30); CHLORIDE 108 mmol/L (98-107); GLUCOSE 147 mg/dL (75-110); POTASSIUM 4.5 mmol/L (3.6-5.0); SODIUM 138.7 mmol/L (137-145)
== END ==
LOC: LAB 12:15
PROVIDERS: ATTEND Family Medicine
DX: E78.5 Hyperlipidemia, unspecified (principal); E11.22 Type 2 diabetes mellitus with diabetic chronic kidney disease; I12.9 Hypertensive chronic kidney disease with stage 1 through stage 4 chronic kidney disease, or unspecified chronic kidney disease; N18.4 Chronic kidney disease, stage 4 (severe)
CPT/HCPCS: 36415; 80048; 80053; 80061; 83036; 85025

== ENCOUNTER → 2019-02-13 | Outpatient (CLI) | payer MEDICARE, MEDICAID ==
--- NOTE | 2019-02-13 11:03 | RADIOLOGY REPORT (SQ) ---
EXAM DESCRIPTION: U/S RETROPERITON (RENAL/AORTA) COMPLETED DATE/TIME: 02/13/2019 10:42 am REASON FOR STUDY: ACUTE KIDNEY FAILURE, UNSPECIFIED (N17.9) N18.3 CHRONIC KIDNEY DISEASE, STAGE 3 ( MODERATE) N17.9 ACUTE KIDNEY FAILURE, UNSPECIFIED COMPARISON: None. TECHNIQUE: Dynamic and static grayscale images acquired of the kidneys and bladder and recorded on P ACS. Additional selected color Doppler and spectral images recorded. LIMITATIONS: None. FINDINGS: RIGHT KIDNEY: The right kidney measures 8.9 cm x 5.0 cm, normal size. Normal echogenicit y. No solid or suspicious masses. No hydronephrosis. No calcifications. LEFT KIDNEY: The left kidney measures 9.0 cm x 4.3 cm, normal size. Normal echogenicity. No solid or suspicious masses. No hydronephrosis. No calcifications. BLADDER: No masses. Slight to mild debris within the urinary bladder lumen. The prostate gland is enlarged and measures 4.8 x 3.9 x 5.2 cm. There is indentation on the base of the urinary bladder ma y be related to hypertrophy of the median lobe of the prostate gland. Mild thickening of the urinary bladder wall. OTHER FINDINGS: No other significant finding. IMPRESSION: 1. NORMAL RENAL ULTRASOUND. 2. Bladder volumes as above. TECHNICAL DOCUMENTATION: JOB ID: [id number] [employer]- All Rights Reserved Reading location - IP/workstation name: [email or web address]
== END ==
LOC: RAD 09:22
PROVIDERS: ATTEND Physician Assistant Medical
DX: N17.9 Acute kidney failure, unspecified (principal); N18.3 Chronic kidney disease, stage 3 (moderate)
CPT/HCPCS: 76770

== ENCOUNTER → 2019-03-05 | Outpatient (CLI) | payer MEDICARE, MEDICAID ==
[2019-03-05 13:54] LABS: HEMOGLOBIN 13.6 g/dL (13.5-17.0); MEAN CORPUSCULAR HEMOGLOBIN 31.2 pg (27.0-33.4); MEAN CORPUSCULAR VOLUME 92 fl (80-97); PLATELET COUNT 168 10^3/uL (150-450); RED BLOOD COUNT 4.35 10^6/uL (4.35-5.55); RED CELL DISTRIBUTION WIDTH 13.8 % (11.5-14.0); WHITE BLOOD COUNT 5.5 10^3/uL (4.0-10.5)
[2019-03-05 14:14] LABS: UR PRO/CREAT RATIO RESULT 1.4 mg/mg (0.0-0.2); URINE CREATININE 89.8 mg/dL (22-328); URINE PROTEIN 121.6 mg/dL (<12)
[2019-03-05 14:24] LABS: ANION GAP 10 (5-19); BLOOD UREA NITROGEN 34 mg/dL (7-20); CALCIUM 9.7 mg/dL (8.4-10.2); CARBON DIOXIDE 18 mmol/L (22-30); CHLORIDE 107 mmol/L (98-107); GLUCOSE 390 mg/dL (75-110); SODIUM 135.1 mmol/L (137-145)
== END ==
LOC: OD 13:21
PROVIDERS: ATTEND Physician Assistant Medical
DX: E11.22 Type 2 diabetes mellitus with diabetic chronic kidney disease (principal); I12.9 Hypertensive chronic kidney disease with stage 1 through stage 4 chronic kidney disease, or unspecified chronic kidney disease; N18.3 Chronic kidney disease, stage 3 (moderate); E87.5 Hyperkalemia; E87.2 Acidosis
CPT/HCPCS: 36415; 80048; 82570; 83970; 84156; 85027

== ENCOUNTER → 2019-05-11 | Outpatient (CLI) | payer MEDICARE, MEDICAID ==
[2019-05-11 12:12] LABS: HEMATOCRIT 37.7 % (37.9-51.0); HEMOGLOBIN 12.5 g/dL (13.5-17.0); MEAN CORPUSCULAR HEMOGLOBIN 30.6 pg (27.0-33.4); MEAN CORPUSCULAR HGB CONC 33.2 g/dL (32.0-36.0); MEAN CORPUSCULAR VOLUME 92 fl (80-97); PLATELET COUNT 155 10^3/uL (150-450); RED BLOOD COUNT 4.09 10^6/uL (4.35-5.55); RED CELL DISTRIBUTION WIDTH 13.8 % (11.5-14.0)
[2019-05-11 12:41] LABS: ANION GAP 7 (5-19); BLOOD UREA NITROGEN 27 mg/dL (7-20); CALCIUM 9.2 mg/dL (8.4-10.2); CARBON DIOXIDE 27 mmol/L (22-30); CHLORIDE 102 mmol/L (98-107); GLUCOSE 396 mg/dL (75-110); PHOSPHORUS 3.6 mg/dL (2.5-4.5); POTASSIUM 4.6 mmol/L (3.6-5.0); SODIUM 136.1 mmol/L (137-145)
[2019-05-11 12:41] LABS: APPEARANCE,URINE CLEAR; BILIRUBIN,URINE NEGATIVE (NEGATIVE); COLOR,URINE YELLOW; GLUCOSE, URINE >=500 mg/dL (NEGATIVE); KETONES,URINE NEGATIVE (NEGATIVE); LEUKOCYTE ESTERASE,URINE NEGATIVE (NEGATIVE); NITRITE,URINE NEGATIVE (NEGATIVE); PROTEIN,URINE 100 mg/dL (NEGATIVE); URINE SPECIFIC GRAVITY 1.011; UROBILINOGEN,URINE NEGATIVE mg/dL (<2.0)
== END ==
LOC: OD 11:51
PROVIDERS: ATTEND Physician Assistant Medical
DX: N18.3 Chronic kidney disease, stage 3 (moderate) (principal); I12.9 Hypertensive chronic kidney disease with stage 1 through stage 4 chronic kidney disease, or unspecified chronic kidney disease; E11.9 Type 2 diabetes mellitus without complications; E87.2 Acidosis; N25.0 Renal osteodystrophy
CPT/HCPCS: 36415; 80048; 81001; 83970; 84100; 85027

== ENCOUNTER → 2019-09-02 | Outpatient (CLI) | payer MEDICARE, MEDICAID ==
--- NOTE | 2019-09-02 17:26 | RADIOLOGY REPORT (SQ) ---
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 TECHNIQUE: Multiplanar imaging includes non-contrasted T1, T2, FLAIR, and diffusion with ADC map seq uences. Additional thin section images acquired through the orbits. Images stored on PACS. LIMITATIONS: None. FINDINGS: ANATOMY: No anomalies. Normal vascular flow voids. Pituitary fossa normal. CSF SPACES: Normal in size and contour. No hemorrhage. CEREBRUM: Sulci and gyri normal in size and contour. Normal white matter signal on FLAIR imaging. No evidence of hemorrhage, mass, or extraaxial fluid collection. POSTERIOR FOSSA: No signal alteration. No hemorrhage. No edema, masses or mass effect. Internal govind tory canals, cerebello-pontine angles, mastoids normal. DIFFUSION IMAGING: Negative for acute or sub-acute infarction. ORBITS: No masses. Globes normal. PARANASAL SINUSES: Prominent mucous membrane thickening in the maxillary, ethmoid, and sphenoid sinu ses. Fluid in the left maxillary sinus. OTHER: No other significant finding. IMPRESSION: 1. NORMAL MRI OF THE BRAIN AND ORBITS WITHOUT INTRAVENOUS GADOLINIUM CONTRAST. 2. SINUS DISEASE. EVIDENCE OF ACUTE STROKE: NO. TECHNICAL DOCUMENTATION: JOB ID: [id number] [employer]- All Rights Reserved Reading location - IP/workstation name: [email or web address]
== END ==
LOC: RAD 14:42
PROVIDERS: ATTEND Ophthalmology
DX: H53.8 Other visual disturbances (principal); H47.293 Other optic atrophy, bilateral
CPT/HCPCS: 70551; 82565

== ENCOUNTER → 2019-09-10 | Outpatient (CLI) | payer MEDICARE, MEDICAID ==
[2019-09-10 14:10] LABS: HEMATOCRIT 40.5 % (37.9-51.0); HEMOGLOBIN 13.5 g/dL (13.5-17.0); MEAN CORPUSCULAR HEMOGLOBIN 30.8 pg (27.0-33.4); MEAN CORPUSCULAR HGB CONC 33.3 g/dL (32.0-36.0); MEAN CORPUSCULAR VOLUME 93 fl (80-97); PLATELET COUNT 170 10^3/uL (150-450); RED BLOOD COUNT 4.38 10^6/uL (4.35-5.55); RED CELL DISTRIBUTION WIDTH 14.2 % (11.5-14.0); WHITE BLOOD COUNT 6.1 10^3/uL (4.0-10.5)
[2019-09-10 14:20] LABS: APPEARANCE,URINE CLEAR; BILIRUBIN,URINE NEGATIVE (NEGATIVE); COLOR,URINE YELLOW; GLUCOSE, URINE 150 mg/dL (NEGATIVE); KETONES,URINE NEGATIVE (NEGATIVE); LEUKOCYTE ESTERASE,URINE NEGATIVE (NEGATIVE); NITRITE,URINE NEGATIVE (NEGATIVE); PROTEIN,URINE 100 mg/dL (NEGATIVE); URINE SPECIFIC GRAVITY 1.012; UROBILINOGEN,URINE NEGATIVE mg/dL (<2.0)
[2019-09-10 14:28] LABS: ANION GAP 8 (5-19); BLOOD UREA NITROGEN 26 mg/dL (7-20); CALCIUM 9.2 mg/dL (8.4-10.2); CARBON DIOXIDE 22 mmol/L (22-30); CHLORIDE 106 mmol/L (98-107); GLUCOSE 233 mg/dL (75-110); POTASSIUM 4.5 mmol/L (3.6-5.0)
[2019-09-10 14:48] LABS: URINE CREATININE 81.5 mg/dL (22-328)
[2019-09-10 15:01] LABS: UR PRO/CREAT RATIO RESULT 2.9 mg/mg (0.0-0.2); URINE PROTEIN 237.7 mg/dL (<12)
== END ==
LOC: OD 13:31
PROVIDERS: ATTEND Physician Assistant Medical
DX: E11.22 Type 2 diabetes mellitus with diabetic chronic kidney disease (principal); I12.9 Hypertensive chronic kidney disease with stage 1 through stage 4 chronic kidney disease, or unspecified chronic kidney disease; N18.3 Chronic kidney disease, stage 3 (moderate); N17.9 Acute kidney failure, unspecified; E87.5 Hyperkalemia; E87.2 Acidosis
CPT/HCPCS: 36415; 80048; 81001; 82570; 83735; 83970; 84100; 84156; 85027

== ENCOUNTER → 2019-11-19 | Outpatient (CLI) | payer MEDICARE, MEDICAID ==
[2019-11-19 15:35] LABS: ABSOLUTE BASOPHILS # (AUTO) 0.1 10^3/uL (0.0-0.2); ABSOLUTE EOSINOPHILS # (AUTO) 0.2 10^3/uL (0.0-0.6); ABSOLUTE LYMPHOCYTES (AUTO) 2.7 10^3/uL (0.5-4.7); ABSOLUTE MONOCYTES (AUTO) 0.6 10^3/uL (0.1-1.4); ABSOLUTE NEUT (AUTO) 5.3 10^3/uL (1.7-8.2); BASOPHILS % (AUTO) 0.7 % (0-2); EOSINOPHILS % (AUTO) 2.6 % (0-6); HEMATOCRIT 42.1 % (37.9-51.0); HEMOGLOBIN 14.2 g/dL (13.5-17.0); LYMPHOCYTES % (AUTO) 30.8 % (13-45); MEAN CORPUSCULAR HEMOGLOBIN 31.3 pg (27.0-33.4); MEAN CORPUSCULAR HGB CONC 33.7 g/dL (32.0-36.0); MEAN CORPUSCULAR VOLUME 93 fl (80-97); MONOCYTES % (AUTO) 6.5 % (3-13); PLATELET COUNT 236 10^3/uL (150-450); RED BLOOD COUNT 4.53 10^6/uL (4.35-5.55); RED CELL DISTRIBUTION WIDTH 13.5 % (11.5-14.0); SEGMENTED NEUTROPHILS % (AUTO) 59.4 % (42-78); TOTAL CELLS COUNTED % (AUTO) 100 %; WHITE BLOOD COUNT 8.9 10^3/uL (4.0-10.5)
[2019-11-19 15:56] LABS: ALBUMIN 3.8 g/dL (3.5-5.0); ALKALINE PHOSPHATASE 98 U/L (38-126); ASPARTATE AMINO TRANSFERASE 68 U/L (17-59); BILIRUBIN,DIRECT 0.3 mg/dL (0.0-0.4); BILIRUBIN,TOTAL 0.4 mg/dL (0.2-1.3); CREATINE KINASE 83 U/L (55-170)
[2019-11-19 16:41] LABS: ERYTHROCYTE SEDIMENTATION RATE 18 mm/hr (0-20)
[2019-11-19 17:04] LABS: C-REACTIVE PROTEIN < 5.0 mg/L (<10.0)
== END ==
LOC: OD 14:54
PROVIDERS: ATTEND Ophthalmology
DX: H53.8 Other visual disturbances (principal)
CPT/HCPCS: 36415; 80076; 82550; 82607; 82746; 84425; 85025; 85652; 86140; 86592

== ENCOUNTER → 2019-12-12 | Outpatient (CLI) | payer MEDICARE, MEDICAID ==
--- NOTE | 2019-12-12 12:35 | RADIOLOGY REPORT (SQ) ---
EXAM DESCRIPTION: HAND RIGHT 3 VIEWS COMPLETED DATE/TIME: 12/12/2019 12:07 pm REASON FOR STUDY: UNSP INJURY OF RIGHT WRIST, HAND AND FINGER(S), INIT ENCNTR S69.91XA UNSP INJURY OF RIGHT WRIST, HAND AND FINGER(S), INI COMPARISON: None. EXAM PARAMETERS: NUMBER OF VIEWS: Three views. TECHNIQUE: AP, lateral and oblique radiographic images acquired of the right hand. LIMITATIONS: None. FINDINGS: MINERALIZATION: Normal. BONES: No acute fracture or dislocation. No worrisome bone lesions. JOINTS: No effusions. SOFT TISSUES: Soft tissue swelling at the dorsal aspect of the distal 2nd digit. No radiopaque forei gn body. OTHER: No other significant finding. IMPRESSION: Soft tissue swelling at the dorsal aspect of the distal 2nd digit. No acute bony abnorm ality. No radiopaque foreign body. TECHNICAL DOCUMENTATION: JOB ID: [id number] [employer]- All Rights Reserved Reading location - IP/workstation name: [email or web address]
== END ==
LOC: OD 11:31
PROVIDERS: ATTEND Family Medicine
DX: S69.91XA Unspecified injury of right wrist, hand and finger(s), initial encounter (principal); X58.XXXA Exposure to other specified factors, initial encounter; M79.89 Other specified soft tissue disorders

== ENCOUNTER → 2019-12-14 | Outpatient (CLI) | payer MEDICARE, MEDICAID ==
[2019-12-14 10:57] LABS: HEMATOCRIT 37.8 % (37.9-51.0); HEMOGLOBIN 12.7 g/dL (13.5-17.0); MEAN CORPUSCULAR HEMOGLOBIN 31.1 pg (27.0-33.4); MEAN CORPUSCULAR HGB CONC 33.5 g/dL (32.0-36.0); MEAN CORPUSCULAR VOLUME 93 fl (80-97); PLATELET COUNT 194 10^3/uL (150-450); RED BLOOD COUNT 4.08 10^6/uL (4.35-5.55); RED CELL DISTRIBUTION WIDTH 13.9 % (11.5-14.0); WHITE BLOOD COUNT 8.6 10^3/uL (4.0-10.5)
[2019-12-14 11:26] LABS: ANION GAP 14 (5-19); BLOOD UREA NITROGEN 60 mg/dL (7-20); CALCIUM 9.1 mg/dL (8.4-10.2); CARBON DIOXIDE 19 mmol/L (22-30); CHLORIDE 103 mmol/L (98-107); GLUCOSE 234 mg/dL (75-110); PHOSPHORUS 7.1 mg/dL (2.5-4.5); POTASSIUM 4.7 mmol/L (3.6-5.0)
[2019-12-14 11:31] LABS: ABSOLUTE LYMPHOCYTES# (MANUAL) 2.9 10^3/uL (0.5-4.7); ABSOLUTE MONOCYTES # (MANUAL) 0.3 10^3/uL (0.1-1.4); BASOPHILS % (MANUAL) 1 % (0-2); EOSINOPHILS % (MANUAL) 3 % (0-6); LYMPHOCYTES % (MANUAL) 33 % (13-45); MONOCYTES % (MANUAL) 3 % (3-13); NUCLEATED RED BLOOD CELLS 1 /100 WBC (0); SEGMENTED NEUTROPHILS % (MAN) 59 % (42-78); TOTAL CELLS COUNTED 100
[2019-12-14 11:33] LABS: PLATELET COMMENT ADEQUATE; RBC MORPHOLOGY COMMENT NORMO-CYTIC/CHROMIC
[2019-12-14 11:58] LABS: APPEARANCE,URINE CLEAR; BILIRUBIN,URINE NEGATIVE (NEGATIVE); COLOR,URINE STRAW; GLUCOSE, URINE >=500 mg/dL (NEGATIVE); KETONES,URINE NEGATIVE (NEGATIVE); LEUKOCYTE ESTERASE,URINE NEGATIVE (NEGATIVE); NITRITE,URINE NEGATIVE (NEGATIVE); PROTEIN,URINE 100 mg/dL (NEGATIVE); URINE SPECIFIC GRAVITY 1.008; UROBILINOGEN,URINE NEGATIVE mg/dL (<2.0)
[2019-12-14 12:32] LABS: UR PRO/CREAT RATIO RESULT 2.5 mg/mg (0.0-0.2); URINE CREATININE 46.9 mg/dL (22-328); URINE PROTEIN 117.6 mg/dL (<12)
== END ==
LOC: OD 10:21
PROVIDERS: ATTEND Physician Assistant Medical
DX: I12.9 Hypertensive chronic kidney disease with stage 1 through stage 4 chronic kidney disease, or unspecified chronic kidney disease (principal); N18.4 Chronic kidney disease, stage 4 (severe); E11.22 Type 2 diabetes mellitus with diabetic chronic kidney disease; N25.0 Renal osteodystrophy; R80.9 Proteinuria, unspecified; E87.5 Hyperkalemia
CPT/HCPCS: 36415; 80048; 81001; 82570; 83735; 83970; 84100; 84156; 85025

== ENCOUNTER 2020-01-17 16:15 | Inpatient (IN) | payer MEDICARE, MEDICAID ==
[2020-01-17] MEDS ORDERED: NORMAL SALINE 1000 ML 1,000 ML IV ONE (16:33)
--- NOTE | 2020-01-17 16:35 | ER Document Report ---
ED Medical Screen (RME) - General Chief Complaint: Abnormal Lab Results Stated Complaint: ABNORMAL LABS Time Seen by Provider: 01/17/20 16:29 Primary Care Provider: PEDRO RODRIGUEZ MD [Primary Care Provider] - Follow up as needed Notes: HPI: 64-year-old male who is a patient of Dr. Rodriguez sent over for evaluation of abnormal labs drawn today. Patient states that he was given antibiotics for a finger infection at the beginning of December and shortly afterwards began having copious amounts of diarrhea. Patient states that Imodium has not really resolve the diarrhea. No abdominal pain no fever. Patient had lab work drawn by Dr. Rodriguez today and was called at home and told to come to the emergency department for evaluation no chest pain or shortness of breath. I have greeted and performed a rapid initial assessment of this patient. A comprehensive ED assessment and evaluation of the patient, analysis of test results and completion of the medical decision making process will be conducted by additional ED providers PHYSICAL EXAMINATION: GENERAL: Well-appearing, well-nourished and in no acute distress. HEAD: Atraumatic, normocephalic. EYES: sclera anicteric, conjunctiva are normal. ENT: Moist mucous membranes. NECK: Normal range of motion LUNGS: Normal work of breathing HEART: 2+ radial pulses bilaterally ABD: limited by positioning for exam in triage. EXTREMITIES: no pitting or edema. No cyanosis. NEUROLOGICAL: No focal neurological deficits. Moves all extremities spontaneously and on command. PSYCH: Normal mood, normal affect. SKIN: Warm, Dry, normal turgor, no rashes or lesions noted. Patient's BUN/creatinine are noted to be 66 and 7.11 which is a significant difference from previous lab work TRAVEL OUTSIDE OF THE [place] IN LAST 30 DAYS: No - Related Data Allergies/Adverse Reactions: No Known Allergies Allergy (Verified 01/17/20 16:25) Past Medical History - Past Medical History Cardiac Medical History: Reports: Hx Hypertension Denies: Hx Coronary Artery Disease, Hx Heart Attack Pulmonary Medical History: Denies: Hx Asthma, Hx Bronchitis, Hx COPD, Hx Pneumonia Neurological Medical History: Reports: Hx Seizures. Denies: Hx Cerebrovascular Accident Endocrine Medical History: Reports: Hx Diabetes Mellitus Type 1, Hx Diabetes Mellitus Type 2 Renal/ Medical History: Denies: Hx Peritoneal Dialysis Musculoskeltal Medical History: Reports Hx Arthritis - shoulder Past Surgical History: Reports: Hx Orthopedic Surgery - toe - Immunizations Hx Diphtheria, Pertussis, Tetanus Vaccination: No Physical Exam - Vital signs Vitals: Temp Pulse Resp BP Pulse Ox 97.4 F 67 16 133/52 H 100 01/17/20 16:19 01/17/20 16:19 01/17/20 16:19 01/17/20 16:19 01/17/20 16:19 Course - Vital Signs Vital signs: Temp Pulse Resp BP Pulse Ox 97.4 F 67 16 133/52 H 100 01/17/20 16:19 01/17/20 16:19 01/17/20 16:19 01/17/20 16:19 01/17/20 16:19 Doctor's Discharge - Discharge Referrals: PEDRO RODRIGUEZ MD [Primary Care Provider] - Follow up as needed
--- NOTE | 2020-01-17 17:25 | EKG REPORT ---
SEVERITY:- ABNORMAL ECG - SINUS RHYTHM PROBABLE LEFT VENTRICULAR HYPERTROPHY BORDERLINE INFERIOR Q WAVES : Confirmed by: Maged Avalos MD 17-Jan-2020 17:24:44
[2020-01-17] MEDS ORDERED: IPRATROPIUM/ALBUTEROL 0.5-2.5 MG/3 ML AMPUL NEB PRN (17:49)
[2020-01-17] MEDS ORDERED: ACETAMINOPHEN 325 MG TABLET PO PRN (17:49)
[2020-01-17] MEDS ORDERED: 1/2 NORMAL SALINE 1,000 ML with SODIUM BICARBONATE 100 MEQ IV ONE ×2 (17:49)
--- NOTE | 2020-01-17 17:58 | ER Document Report ---
ED General - General Chief Complaint: Abnormal Lab Results Stated Complaint: ABNORMAL LABS Time Seen by Provider: 01/17/20 16:29 TRAVEL OUTSIDE OF THE [place] IN LAST 30 DAYS: No - HPI Notes: 64-year-old male referred here by Dr. Ordoñez with suspected C. difficile colitis and acute on chronic renal failure. This man was seen in Dr. Ordoñez's office around 25 December and was started on an oral antibiotic for an infection of his right index finger associated with an injury. While he was taking the antibiotic he developed diarrhea which is been persistent. This man has baseline stage IV kidney disease not currently being dialyzed. Dr. Decker had seen him in the office couple days ago and prescribed Flagyl for him which patient waited to get filled until yesterday. He came back into the office toda y and had blood chemistries checked and was noted to have a markedly elevated creatinine. He usually runs around 4.2. Today's value was 7.11. His potassium was reportedly normal. This man complains of watery diarrhea and some mild abdominal cramping. Otherwise no very specific complaints today. - Related Data Allergies/Adverse Reactions: No Known Allergies Allergy (Verified 01/17/20 16:25) Past Medical History - General Information source: Patient, Office - Social History Smoking Status: Current Every Day Smoker Chew tobacco use (# tins/day): No Frequency of alcohol use: None Drug Abuse: None Family History: Reviewed & Not Pertinent Patient has suicidal ideation: No Patient has homicidal ideation: No - Past Medical History Cardiac Medical History: Reports: Hx Hypertension Denies: Hx Coronary Artery Disease, Hx Heart Attack Pulmonary Medical History: Denies: Hx Asthma, Hx Bronchitis, Hx COPD, Hx Pneumonia Neurological Medical History: Reports: Hx Seizures. Denies: Hx Cerebrovascular Accident Endocrine Medical History: Reports: Hx Diabetes Mellitus Type 1, Hx Diabetes Mellitus Type 2 Renal/ Medical History: Denies: Hx Peritoneal Dialysis Musculoskeletal Medical History: Reports Hx Arthritis - shoulder Past Surgical History: Reports: Hx Orthopedic Surgery - toe - Immunizations Hx Diphtheria, Pertussis, Tetanus Vaccination: No Review of Systems - Review of Systems Notes: Constitutional: Negative for fever. HENT: Negative for sore throat. Eyes: Negative for visual changes. Cardiovascular: Negative for chest pain. Respiratory: Negative for shortness of breath. Gastrointestinal: As per HPI. Genitourinary: Negative for dysuria. Musculoskeletal: Negative for back pain. Skin: Negative for rash. Neurological: Negative for headaches, weakness or numbness. 10 point ROS negative except as marked above and in HPI. Physical Exam - Vital signs Vitals: Temp Pulse Resp BP Pulse Ox 97.4 F 67 16 133/52 H 100 01/17/20 16:19 01/17/20 16:19 01/17/20 16:19 01/17/20 16:19 01/17/20 16:19 - Notes Notes: GENERAL: Slender male approximately stated age who appears dehydrated. SKIN: Good turgor no rashes. HEAD: Normocephalic atraumatic. EYES: Slightly sunken. PERRLA. EOMI. Conjunctivae and sclerae clear. EARS: CANALS AND TMS CLEAR. NOSE: CLEAR. MOUTH: Tacky oral mucosa. Good dentition. No stridor or edema. No drooling. NECK: Supple. No masses or thyromegaly. No adenopathy. Carotids 2+ without bruits. No JVD. BACK: Symmetrical without tenderness. CHEST: Respirations unlabored. Breath sounds clear and symmetrical. HEART: Regular rhythm. No murmur gallop or rub. ABDOMEN: Soft with minimal epigastric tenderness. No masses, organomegaly or rebound. Bowel sounds hyperactive. No bruits. GENITALIA: Deferred. EXTREMITIES: No edema. No calf tenderness. Cap refill less than 1.5 seconds. Dorsalis pedis and posterior tibial pulses 3+ and symmetrical. NEUROLOGICAL: GCS 15. Alert and oriented x3. Normal gait. Fluent speech. Cranial nerves II through XII intact. Sensorimotor and cerebellar normal. Normal tone. PSYCHIATRIC: Appropriate affect. Course - Vital Signs Vital signs: Temp Pulse Resp BP Pulse Ox 97.4 F 67 13 131/71 H 100 01/17/20 16:19 01/17/20 16:19 01/17/20 17:09 01/17/20 17:09 01/17/20 17:09 - Diagnostic Test Radiology reviewed: Reports reviewed - Per radiologist chronic calcifications of the pancreas and multiple stones in both kidneys without any obstructing stones identified Discharge - Discharge Clinical Impression: Acute kidney injury superimposed on chronic kidney disease Condition: Serious Disposition: ADMITTED INPATIENT Admitting Provider: [facility] Admitted: Telemetry
--- NOTE | 2020-01-17 18:53 | RADIOLOGY REPORT (SQ) ---
EXAM DESCRIPTION: CHEST SINGLE VIEW COMPLETED DATE/TIME: 01/17/2020 6:42 pm REASON FOR STUDY: copd COMPARISON: None. EXAM PARAMETERS: NUMBER OF VIEWS: One view. TECHNIQUE: Single frontal radiographic view of the chest acquired. RADIATION DOSE: NA LIMITATIONS: None. FINDINGS: LUNGS AND PLEURA: No opacities, masses or pneumothorax. No pleural effusion. MEDIASTINUM AND HILAR STRUCTURES: No masses. Contour normal. HEART AND VASCULAR STRUCTURES: Heart normal in size. Normal vasculature. BONES: No acute findings. HARDWARE: None in the chest. OTHER: No other significant finding. IMPRESSION: NO ACUTE RADIOGRAPHIC FINDING IN THE CHEST. TECHNICAL DOCUMENTATION: JOB ID: [id number] 2010 [employer]- All Rights Reserved Reading location - IP/workstation name: [email or web address]
--- NOTE | 2020-01-17 18:57 | RADIOLOGY REPORT (SQ) ---
EXAM DESCRIPTION: CT ABD/PELVIS NO ORAL OR IV COMPLETED DATE/TIME: 01/17/2020 6:41 pm REASON FOR STUDY: acute on chronic renal failure COMPARISON: None. TECHNIQUE: CT scan of the abdomen and pelvis performed without intravenous or oral contrast. Images reviewed with lung, soft tissue, and bone windows. Reconstructed coronal and sagittal MPR images revi ewed. All images stored on PACS. All CT scanners at this facility use dose modulation, iterative reconstruction, and/or weight based d osing when appropriate to reduce radiation dose to as low as reasonably achievable (ALARA). [facility]: Dose Right [facility]: CareDose [facility]: Dose Right [facility]: Teradose 4D [facility]: Smart Weilos RADIATION DOSE: CT Rad equipment meets quality standard of care and radiation dose reduction techniq ues were employed. CTDIvol: 2.5 mGy. DLP: 125 mGy-cm.mGy. LIMITATIONS: None. FINDINGS: LOWER CHEST: No significant findings. No nodules or infiltrates. NON-CONTRASTED LIVER, SPLEEN, ADRENALS: Evaluation limited by lack of IV contrast. No identified sign ificant masses. PANCREAS: Extensive coarse calcifications. No masses. No peripancreatic inflammatory changes. GALLBLADDER: No identified stones by CT criteria. No inflammatory changes to suggest cholecystitis. RIGHT KIDNEY AND URETER: No suspicious masses. Assessment limited by lack of IV contrast. Multiple calculi. No hydronephrosis or hydroureter. LEFT KIDNEY AND URETER: No suspicious masses. Assessment limited by lack of IV contrast. Multiple c alculi. No hydronephrosis or hydroureter. AORTA AND RETROPERITONEUM: No aneurysm. No retroperitoneal masses or adenopathy. BOWEL AND PERITONEAL CAVITY: No obvious masses or inflammatory changes. No free fluid. APPENDIX: Normal. PELVIS, BLADDER, AND ABDOMINAL WALL:No abnormal masses. No free fluid. Bladder normal. BONES: No significant findings. OTHER: No other significant finding. IMPRESSION: 1. MULTIPLE NONOBSTRUCTING CALCULI IN BOTH KIDNEYS. 2. EXTENSIVE COARSE CALCIFICATIONS THROUGHOUT THE PANCREAS CONSISTENT CHRONIC PANCREATITIS. 3. NO OTHER SIGNIFICANT OR ACUTE PROCESS IN THE ABDOMEN OR PELVIS. COMMENT: Quality ID # [id number]: Final reports with documentation of one or more dose reduction techniques (e.g., Automated exposure control, adjustment of the mA and/or kV according to patient size, use of iterative reconstruction technique) TECHNICAL DOCUMENTATION: JOB ID: [id number] [employer]- All Rights Reserved Reading location - IP/workstation name: [email or web address]
[2020-01-17 19:11] LABS: APPEARANCE,URINE CLEAR; BILIRUBIN,URINE NEGATIVE (NEGATIVE); COLOR,URINE YELLOW; GLUCOSE, URINE >=500 mg/dL (NEGATIVE); KETONES,URINE NEGATIVE (NEGATIVE); LEUKOCYTE ESTERASE,URINE SMALL (NEGATIVE); NITRITE,URINE NEGATIVE (NEGATIVE); PROTEIN,URINE 100 mg/dL (NEGATIVE); URINE SPECIFIC GRAVITY 1.008; UROBILINOGEN,URINE NEGATIVE mg/dL (<2.0)
[2020-01-17 19:26] LABS: URINE AMPHETAMINES SCREEN NEGATIVE; URINE BENZODIAZEPINES SCREEN NEGATIVE; URINE COCAINE SCREEN NEGATIVE; URINE MARIJUANA (THC) SCREEN NEGATIVE; URINE METHADONE SCREEN NEGATIVE; URINE PHENCYCLIDINE SCREEN NEGATIVE
[2020-01-17 19:32] LABS: URINE BARBITURATES SCREEN UNCONFIRMED POSITIVE
[2020-01-17] MEDS ORDERED: DEXTROSE 40% GEL 15 GM TUBE PO PRN ×2 (19:49)
[2020-01-17] MEDS ORDERED: DEXTROSE 50%-WATER 25 GM/50 ML DISP.SYRIN IV PRN ×2 (19:49)
[2020-01-17] MEDS ORDERED: GLUCAGON,HUMAN RECOMB 1 MG INJ IM PRN (19:49)
--- NOTE | 2020-01-17 19:53 | PDOC H&P ---
History of Present Illness Admission Date/PCP: PEDRO RODRIGUEZ MD Patient complains of: Acute renal failure History of Present Illness: JUAN ROSSI is a 64 year old male This is a 64-year-old male with a history of the type 2 diabetes history of the hypertension hyperlipidemia chronic kidney disease stage IV came to the emergency department with worsening the kidney functions done as outpatients today with a creatinine of 7.11. Patients came to see me in my office couple of days back for loose stool and concern about the C. difficile due to recently patient's got the antibiotic for the finger infections. Is denied any abdominal pain no nausea no vomiting and order the blood work in the stool for C. difficile but patients did not go until today Today's patient's blood work shows the patient potassium is 3.1 and patient's creatinine was 7.11. Usually see her Dr. Hendricks for the chronic kidney disease stage IV with a baseline creatinine around [address] and discussed with the Dr[address] Hendricks and suggest definitely patients need IV fluid and further evaluations to be hospitalized. When I saw the patient in the ER denied any abdominal pain no nausea no vomiting I started the patient on a Flagyl yesterday and patient diarrhea is currently all stopped Patient is denied any chest pain no short of breath Patient also see [facility] today for a lipoma Past Medical History Cardiac Medical History: Reports: Hypertension Denies: Coronary Artery Disease, Myocardial Infarction Pulmonary Medical History: Denies: Asthma, Bronchitis, Chronic Obstructive Pulmonary Disease (COPD), Pneumonia Neurological Medical History: Reports: Seizures Endocrine Medical History: Reports: Diabetes Mellitus Type 2 Renal/ Medical History: Reports: Chronic Kidney Disease Musculoskeltal Medical History: Reports: Arthritis - shoulder Hematology: Denies: Anemia Past Surgical History Past Surgical History: Reports: Orthopedic Surgery - toe Social History Information Source: Patient Smoking Status: Current Every Day Smoker Electronic Cigarette use?: No Hx Recreational Drug Use: No Hx Prescription Drug Abuse: No Family History Family History: Reviewed & Not Pertinent Parental Family History Reviewed: Yes Children Family History Reviewed: Yes Sibling(s) Family History Reviewed.: Yes Medication/Allergy Home Medications: Phenobarbital [Phenobarbital 64.8 Mg Tablet] 64.8 mg PO DAILY 05/04/13 Benazepril/Hydrochlorothiazide [Benazepril-Hctz 20-25 mg Tab] 1 tab PO DAILY 09/12/15 Calcium Citrate [Calcitrate] 200 mg PO DAILY 09/12/15 Insulin Detemir [Levemir Flextouch] 22 unit SQ ASDIR PRN 09/12/15 Magnesium [Magnacaps] 100 mg PO DAILY 09/12/15 Sodium Bicarbonate 325 mg PO DAILY 09/12/15 Oxycodone HCl/Acetaminophen [Percocet 2.5-325 Mg Tablet] 1 each PO 6XD #15 tablet 09/16/15 Ciprofloxacin HCl [Cipro 250 mg Tablet] 1 tab PO BID #14 tab 08/19/16 Ofloxacin [Floxin] 10 drop OT DAILY #1 bottle 08/19/16 Diltiazem HCl [Cardizem Cd 120 mg Capsule] 1 cap.sr PO DAILY #30 cap.sr 06/05/18 Sodium Polystyrene Sulfonate [Kayexalate 15 Gm/60 Ml Susp 60 Ml] 15 gm PO Q6 3 Days #3 bottle 06/05/18 Allergies/Adverse Reactions: No Known Allergies Allergy (Verified 01/17/20 16:25) Review of Systems Constitutional: ABSENT: chills, fever(s), headache(s), weight gain, weight loss Eyes: ABSENT: visual disturbances Ears: ABSENT: hearing changes Cardiovascular: ABSENT: chest pain, dyspnea on exertion, edema, orthropnea, palpitations Respiratory: ABSENT: cough, hemoptysis Gastrointestinal: ABSENT: abdominal pain, constipation, diarrhea, hematemesis, hematochezia, nausea, vomiting Genitourinary: ABSENT: dysuria, hematuria Musculoskeletal: ABSENT: joint swelling Integumentary: ABSENT: rash, wounds Neurological: ABSENT: abnormal gait, abnormal speech, confusion, dizziness, focal weakness, syncope Psychiatric: ABSENT: anxiety, depression, homidical ideation, suicidal ideation Endocrine: ABSENT: cold intolerance, heat intolerance, menstrual abnormalities, polydipsia, polyuria Hematologic/Lymphatic: ABSENT: easy bleeding, easy bruising, lymphadenopathy Physical Exam Vital Signs: Temp Pulse Resp BP Pulse Ox 97.4 F 67 16 133/52 H 100 01/17/20 16:19 01/17/20 16:19 01/17/20 16:19 01/17/20 16:19 01/17/20 16:19 Intake & Output 01/16/20 01/17/20 01/18/20 06:59 06:59 06:59 Weight 54.431 kg General appearance: PRESENT: no acute distress, well-developed, well-nourished Head exam: PRESENT: atraumatic, normocephalic Eye exam: PRESENT: conjunctiva pink, EOMI, PERRLA. ABSENT: scleral icterus Ear exam: PRESENT: normal external ear exam Mouth exam: PRESENT: moist, tongue midline Neck exam: PRESENT: full ROM. ABSENT: carotid bruit, JVD, lymphadenopathy, thyromegaly Respiratory exam: PRESENT: clear to auscultation [place] Cardiovascular exam: PRESENT: RRR. ABSENT: diastolic murmur, rubs, systolic murmur Vascular exam: PRESENT: normal capillary refill GI/Abdominal exam: PRESENT: normal bowel sounds, soft. ABSENT: distended, guarding, mass, organolmegaly, rebound, tenderness Rectal exam: PRESENT: deferred Musculoskeletal exam: PRESENT: ambulatory Neurological exam: PRESENT: alert, awake, oriented to person, oriented to place, oriented to time, oriented to situation, CN II-XII grossly intact. ABSENT: motor sensory deficit Psychiatric exam: PRESENT: appropriate affect, normal mood. ABSENT: homicidal ideation, suicidal ideation Skin exam: PRESENT: dry, intact, warm. ABSENT: cyanosis, rash Assessment & Plan - Diagnosis (1) Acute renal failure Qualifiers: Acute renal failure type: unspecified Qualified Code(s): N17.9 - Acute kidney failure, unspecified Is this a current diagnosis for this admission?: Yes Plan: Most likely a recently have a diarrhea episodes underlying dehydration's Start the patient on IV fluid Get the CT scan of the abdomen pelvis Get the urine culture (2) Type 2 diabetes mellitus Qualifiers: Chronic kidney disease stage: stage 4 (severe) Is this a current diagnosis for this admission?: Yes Plan: Initial sliding scale (3) Metabolic acidosis Is this a current diagnosis for this admission?: Yes Plan: As per discussed with the Dr. Hendricks will give 2 ampoules of sodium bicarb continues the IV fluid (4) Hypertension Qualifiers: Hypertension type: essential hypertension Qualified Code(s): I10 - Essential (primary) hypertension Is this a current diagnosis for this admission?: Yes Plan: to current medications (5) Hyperlipidemia Qualifiers: Hyperlipidemia type: unspecified Qualified Code(s): E78.5 - Hyperlipidemia, unspecified Is this a current diagnosis for this admission?: Yes (6) Chronic obstructive pulmonary disease Qualifiers: COPD type: unspecified COPD Qualified Code(s): J44.9 - Chronic obstructive pulmonary disease, unspecified Is this a current diagnosis for this admission?: Yes (7) Diarrhea Qualifiers: Diarrhea type: unspecified type Qualified Code(s): R19.7 - Diarrhea, unspecified Is this a current diagnosis for this admission?: Yes Plan: We will get the stool for C. difficile - Time Time Spent: 50 to 70 Minutes Medications reviewed and adjusted accordingly: Yes Anticipated discharge: Home Within: Other - Inpatient Certification Based on my medical assessment, after consideration of the patient's comorbidities, presenting symptoms, or acuity I expect that the services needed warrant INPATIENT care.: Yes I certify that my determination is in accordance with my understanding of Medicare's requirements for reasonable and necessary INPATIENT services [42 CFR 412.3e].: Yes Medical Necessity: Significant Comorbidiites Make Outpatient Treatment Too Risky, Need For IV Fluids Post Hospital Care: D/C Equipment Application Specialist Documentation - Plan Summary Plan Summary: Admit the patient is in IMCU See MD orders
[2020-01-17] MEDS ORDERED: OXYCODONE HCL IR 5 MG TABLET PO PRN (20:35)
[2020-01-17 20:55] LABS: ALBUMIN 3.5 g/dL (3.5-5.0); ALKALINE PHOSPHATASE 84 U/L (38-126); ANION GAP 14 (5-19); ASPARTATE AMINO TRANSFERASE 22 U/L (17-59); BILIRUBIN,DIRECT 0.2 mg/dL (0.0-0.4); BILIRUBIN,TOTAL 0.4 mg/dL (0.2-1.3); BLOOD UREA NITROGEN 65 mg/dL (7-20); CALCIUM 8.5 mg/dL (8.4-10.2); CARBON DIOXIDE 14 mmol/L (22-30); CHLORIDE 103 mmol/L (98-107); TOTAL PROTEIN 5.8 g/dL (6.3-8.2)
[2020-01-17] MEDS ORDERED: POTASSIUM CHLORIDE 10 MEQ TABLET.ER PO ONE (21:00)
[2020-01-17 21:05] LABS: POTASSIUM 2.9 mmol/L (3.6-5.0)
[2020-01-17 21:06] LABS: GLUCOSE 601 mg/dL (75-110)
[2020-01-17] MEDS: METRONIDAZOLE 500 MG TABLET PO SCH (21:22)
[2020-01-17] MEDS: INSULIN LISPRO 100 UNIT/ML 3 ML VIAL SUBCUT SCH (21:22)
[2020-01-17] MEDS: FAMOTIDINE 20 MG TABLET PO SCH (21:22)
[2020-01-17] MEDS: HEPARIN SOD (PORCINE) 5,000 UNIT/ML 1 ML VIAL SUBCUT SCH (21:28)
[2020-01-17 22:11] LABS: C DIFFICILE GDH NEGATIVE (NEGATIVE)
[2020-01-18] MEDS: NORMAL SALINE 1000 ML 1,000 ML IV PRN ×2 (05:42→15:22)
[2020-01-18] MEDS: HEPARIN SOD (PORCINE) 5,000 UNIT/ML 1 ML VIAL SUBCUT SCH ×3 (05:45→21:45)
[2020-01-18] MEDS: METRONIDAZOLE 500 MG TABLET PO SCH (05:45)
[2020-01-18 06:31] LABS: ABSOLUTE EOSINOPHILS # (AUTO) 0.2 10^3/uL (0.0-0.6); ABSOLUTE LYMPHOCYTES (AUTO) 3.4 10^3/uL (0.5-4.7); ABSOLUTE MONOCYTES (AUTO) 0.7 10^3/uL (0.1-1.4); ABSOLUTE NEUT (AUTO) 5.7 10^3/uL (1.7-8.2); BASOPHILS % (AUTO) 0.3 % (0-2); EOSINOPHILS % (AUTO) 2.1 % (0-6); HEMATOCRIT 29.6 % (37.9-51.0); MEAN CORPUSCULAR HEMOGLOBIN 32.3 pg (27.0-33.4); MEAN CORPUSCULAR HGB CONC 35.5 g/dL (32.0-36.0); MEAN CORPUSCULAR VOLUME 91 fl (80-97); MONOCYTES % (AUTO) 6.9 % (3-13); PLATELET COUNT 186 10^3/uL (150-450); RED BLOOD COUNT 3.26 10^6/uL (4.35-5.55); RED CELL DISTRIBUTION WIDTH 13.9 % (11.5-14.0); SEGMENTED NEUTROPHILS % (AUTO) 56.7 % (42-78); TOTAL CELLS COUNTED % (AUTO) 100 %; WHITE BLOOD COUNT 10.1 10^3/uL (4.0-10.5)
[2020-01-18 06:33] LABS: HEMOGLOBIN 10.5 g/dL (13.5-17.0)
[2020-01-18 06:57] LABS: ANION GAP 11 (5-19); BLOOD UREA NITROGEN 65 mg/dL (7-20); CALCIUM 8.2 mg/dL (8.4-10.2); CARBON DIOXIDE 15 mmol/L (22-30); CHLORIDE 111 mmol/L (98-107); GLUCOSE 118 mg/dL (75-110)
[2020-01-18 07:14] LABS: POTASSIUM 2.9 mmol/L (3.6-5.0)
--- NOTE | 2020-01-18 07:40 | EKG REPORT ---
SEVERITY:- ABNORMAL ECG - SINUS RHYTHM NONSPECIFIC T ABNORMALITIES, ANT-LAT LEADS BORDERLINE PROLONGED QT INTERVAL : Confirmed by: Maged Avalos MD 18-Jan-2020 07:40:11
[2020-01-18] MEDS: INSULIN LISPRO 100 UNIT/ML 3 ML VIAL SUBCUT SCH ×4 (08:11→21:43)
--- NOTE | 2020-01-18 08:33 | PDOC PROGRESS REPORT ---
Subjective Progress Note for:: 01/18/20 Subjective:: Patient is currently doing fair Patient is complaining of her chronic pain issues with the back pain and finger pain Patient seen by the surgery yesterday about the finger and also patient see a pain management for chronic back issues Patient's denied any alcohol history for a long time Patient's kidney function is all improving Patient's C. difficile is all negative Reason For Visit: ACUTE RENAL FAILURE Physical Exam Vital Signs: Temp Pulse Resp BP Pulse Ox 98.4 F 63 16 145/78 H 99 01/18/20 07:49 01/18/20 07:49 01/18/20 07:49 01/18/20 07:49 01/18/20 07:49 Intake & Output 01/17/20 01/18/20 01/19/20 06:59 06:59 06:59 Intake Total 210 1100 Output Total 750 Balance -540 1100 Weight 52.1 kg General appearance: PRESENT: no acute distress, well-developed, well-nourished Head exam: PRESENT: atraumatic, normocephalic Eye exam: PRESENT: conjunctiva pink, EOMI, PERRLA. ABSENT: scleral icterus Ear exam: PRESENT: normal external ear exam Mouth exam: PRESENT: moist, tongue midline Neck exam: PRESENT: full ROM. ABSENT: carotid bruit, JVD, lymphadenopathy, thyromegaly Cardiovascular exam: PRESENT: RRR. ABSENT: diastolic murmur, rubs, systolic m urmur Vascular exam: PRESENT: normal capillary refill GI/Abdominal exam: PRESENT: normal bowel sounds, soft. ABSENT: distended, guarding, mass, organolmegaly, rebound, tenderness Rectal exam: PRESENT: deferred Neurological exam: PRESENT: alert, awake, oriented to person, oriented to place, oriented to time, oriented to situation, CN II-XII grossly intact. ABSENT: motor sensory deficit Psychiatric exam: PRESENT: appropriate affect, normal mood. ABSENT: homicidal ideation, suicidal ideation Skin exam: PRESENT: dry, intact, warm. ABSENT: cyanosis, rash Results Laboratory Results: 01/18/20 05:45 01/18/20 05:45 01/17/20 01/17/20 01/18/20 18:47 20:26 05:45 WBC 10.1 RBC 3.26 L Hgb 10.5 L D Hct 29.6 L MCV 91 MCH 32.3 MCHC 35.5 RDW 13.9 Plt Count 186 Seg Neutrophils % 56.7 Sodium 131.2 L Potassium 2.9 L* Chloride 103 Carbon Dioxide 14 L Anion Gap 14 BUN 65 H Creatinine 6.95 H Est GFR ( Amer) 10 L Glucose 601 H* Calcium 8.5 Magnesium Total Bilirubin 0.4 AST 22 Alkaline Phosphatase 84 Total Protein 5.8 L Albumin 3.5 Lipase 13.3 L Urine Color YELLOW Urine Appearance CLEAR Urine pH 6.0 Ur Specific [place] 1.008 Urine Protein 100 H Urine Glucose (UA) >=500 H Urine Ketones NEGATIVE Urine Blood MODERATE H Urine Nitrite NEGATIVE Ur Leukocyte Esterase SMALL H Urine WBC (Auto) 15 Urine RBC (Auto) 3 01/18/20 01/18/20 05:45 05:45 WBC RBC Hgb Hct MCV MCH MCHC RDW Plt Count Seg Neutrophils % Sodium 136.5 L Potassium 2.9 L* Chloride 111 H Carbon Dioxide 15 L Anion Gap 11 BUN 65 H Creatinine 6.46 H Est GFR ( Amer) 11 L Glucose 118 H Calcium 8.2 L Magnesium 1.9 Total Bilirubin AST Alkaline Phosphatase Total Protein Albumin Lipase Urine Color Urine Appearance Urine pH Ur Specific [place] Urine Protein Urine Glucose (UA) Urine Ketones Urine Blood Urine Nitrite Ur Leukocyte Esterase Urine WBC (Auto) Urine RBC (Auto) Impressions: Abdomen/Pelvis CT 01/17/20 17:45 IMPRESSION: 1. MULTIPLE NONOBSTRUCTING CALCULI IN BOTH KIDNEYS. 2. EXTENSIVE COARSE CALCIFICATIONS THROUGHOUT THE PANCREAS CONSISTENT CHRONIC PANCREATITIS. 3. NO OTHER SIGNIFICANT OR ACUTE PROCESS IN THE ABDOMEN OR PELVIS. Chest X-Ray 01/17/20 17:51 IMPRESSION: NO ACUTE RADIOGRAPHIC FINDING IN THE CHEST. Assessment & Plan - Diagnosis (1) Acute renal failure Qualifiers: Acute renal failure type: unspecified Qualified Code(s): N17.9 - Acute kidney failure, unspecified Is this a current diagnosis for this admission?: Yes Plan: Continues to IV fluid follow with nephrology (2) Type 2 diabetes mellitus Qualifiers: Chronic kidney disease stage: stage 4 (severe) Is this a current diagnosis for this admission?: Yes Plan: Continue sliding-scale's and continues the current home medications insulin cutting the half dose due to the worsening kidney functions (3) Metabolic acidosis Is this a current diagnosis for this admission?: Yes Plan: Due to the acute renal failure with anion gap is all normal patient's already received 2 A of bicarb yesterday (4) Hypertension Qualifiers: Hypertension type: essential hypertension Qualified Code(s): I10 - Essential (primary) hypertension Is this a current diagnosis for this admission?: Yes Plan: Currently all stable (5) Hyperlipidemia Qualifiers: Hyperlipidemia type: unspecified Qualified Code(s): E78.5 - Hyperlipidemia, unspecified Is this a current diagnosis for this admission?: Yes (6) Chronic obstructive pulmonary disease Qualifiers: COPD type: unspecified COPD Qualified Code(s): J44.9 - Chronic obstructive pulmonary disease, unspecified Is this a current diagnosis for this admission?: Yes Plan: Currently all stable (7) Diarrhea Qualifiers: Diarrhea type: unspecified type Qualified Code(s): R19.7 - Diarrhea, unspecified Is this a current diagnosis for this admission?: Yes Plan: Patient's C. difficile is negative patient does not have any diarrhea anymore and will stop the Flagyl (8) Chronic pain syndrome Is this a current diagnosis for this admission?: Yes Plan: Continues to current home pain medications patients follow with the pain management - Time Time Spent with patient: 25-34 minutes Level of Care: IMCU Medications reviewed and adjusted accordingly: Yes Anticipated discharge: Home Within: Other - Plan Summary Plan Summary: Continues IV fluid continues to current medications replace the potassiums discussed with the Dr. Hendricks discussed with the patient
[2020-01-18] MEDS ORDERED: POTASSIUM CHLORIDE 10 MEQ TABLET.ER PO ONE ×3 (09:00→18:00)
[2020-01-18] MEDS ORDERED: POTASSIUM CHLORIDE 20 MEQ/50 ML RTU IV ONE (09:00)
[2020-01-18] MEDS: MAGNESIUM OXIDE 400 MG TABLET PO SCH (09:57)
[2020-01-18] MEDS: CALCITRIOL 0.25 MCG CAPSULE PO SCH ×2 (09:57→18:03)
[2020-01-18] MEDS: INSULIN GLARGINE,HUM.REC.ANLOG 1,000 UNIT/10 ML VIAL SUBCUT SCH ×2 (09:57→18:50)
[2020-01-18] MEDS: PHENOBARBITAL 64.8 MG TABLET PO SCH (09:57)
[2020-01-18] MEDS: FAMOTIDINE 20 MG TABLET PO SCH (09:57)
[2020-01-18] MEDS: AMLODIPINE BESYLATE 10 MG TABLET PO SCH (09:57)
[2020-01-18] MEDS ORDERED: (PENDING PHARMACY ID) (Calcitriol [Calcitriol] 0.5 MCG) PO SCH (10:00)
[2020-01-18] MEDS ORDERED: INSULIN DETEMIR 15 UNIT SQ SCH (10:00)
[2020-01-18] MEDS ORDERED: SODIUM BICARBONATE 650 MG TABLET PO SCH (10:00)
[2020-01-18] MEDS: OXYCODONE HCL IR 5 MG TABLET PO PRN ×2 (10:03→21:45)
[2020-01-18 15:18] LABS: ANION GAP 10 (5-19); BLOOD UREA NITROGEN 61 mg/dL (7-20); CALCIUM 8.4 mg/dL (8.4-10.2); CARBON DIOXIDE 15 mmol/L (22-30); CHLORIDE 114 mmol/L (98-107); GLUCOSE 191 mg/dL (75-110); POTASSIUM 3.3 mmol/L (3.6-5.0)
--- NOTE | 2020-01-18 16:32 | PDOC CONSULTATION ---
Consultation Consult Date: 01/18/20 Provider Consulted: Franky LYNNE Consult reason:: Acute on chronic kidney disease History of Present Illness Admission Date/PCP: 01/17/20 18:11 PEDRO RODRIGUEZ MD History of Present Illness: JUAN ROSSI is a 64 year old male With a history of longstanding diabetes mellitus, hypertension, CKD stage IV with a base creatinine of around 3.5-4 was admitted with history of progressive weakness and diarrhea over the last couple of weeks in association with worsening renal functions. He was begun on an antibiotic approximately 2 to 3 weeks ago for an injury to his right index finger. He had labs done with Dr. Rodriguez and was found to have a creatinine of 6. 9 Non-gap metabolic acidosis and hypokalemia. Patient has been begun on IV fluids. He feels much better than when he came in. He was feeling generalized weakness without any history of nausea vomiting. He says he still continued to have good appetite. No history of any fever or chills. No history of any bloody stools or abdominal pains. CT scan done shows some nonobstructive renal stones but no hydronephrosis. His C. difficile on stool assay done today was negative. . Past Medical History Cardiac Medical History: Reports: Hypertension-primary Denies: Coronary Artery Disease, Myocardial Infarction Pulmonary Medical History: Denies: Asthma, Bronchitis, Chronic Obstructive Pulmonary Disease (COPD), Pneumonia Neurological Medical History: Reports: Seizures Endocrine Medical History: Reports: Diabetes Mellitus Type 2 Renal/ Medical History: Reports: Secondary Hyperparathyroidism Musculoskeltal Medical History: Reports: Arthritis - shoulder Past Surgical History Past Surgical History: Reports: Orthopedic Surgery - toe Social History Smoking Status: Current Every Day Smoker Cigarettes Packs Per Day: 0.5 Electronic Cigarette use?: No Frequency of Alcohol Use: None Hx Recreational Drug Use: No Hx Prescription Drug Abuse: No Family History Parental Family History Reviewed: No Children Family History Reviewed: No Sibling(s) Family History Reviewed.: No Medication/Allergy Home Medications: Phenobarbital [Phenobarbital 64.8 Mg Tablet] 64.8 mg PO DAILY 05/04/13 Insulin Detemir [Levemir Flextouch] 15 unit SQ BID 09/12/15 Amlodipine Besylate [Norvasc 10 mg Tablet] 10 mg PO DAILY 01/17/20 Calcitriol 0.5 mcg PO BID 01/17/20 Magnesium Oxide [Mag-Ox 400 mg Tablet] 400 mg PO DAILY 01/17/20 Oxycodone HCl [Roxicodone] 5 mg PO QIDP PRN 01/17/20 Sodium Bicarbonate [Sodium Bicarbonate 650 mg Tablet] 650 mg PO BID 01/17/20 Allergies/Adverse Reactions: No Known Allergies Allergy (Verified 01/17/20 16:25) Review of Systems Constitutional: PRESENT: fatigue, weakness. ABSENT: anorexia, chills, fever(s), headache(s) Nose, Mouth, and Throat: ABSENT: mouth pain, sore throat Cardiovascular: ABSENT: dyspnea on exertion, edema, orthropnea, palpitations Respiratory: ABSENT: dyspnea, hemoptysis Gastrointestinal: PRESENT: diarrhea. ABSENT: bloating, coffee ground emesis, dysphagia, heartburn, hematemesis, hematochezia, nausea, vomiting Genitourinary: ABSENT: difficulty urinating, dysuria, hematuria, nocturia Musculoskeletal: ABSENT: deformity, joint swelling Integumentary: ABSENT: lesions, pruritus, rash Neurological: ABSENT: abnormal movements, abnormal speech, focal weakness, frequent falls, lack of coordination, numbness Endocrine: ABSENT: polydipsia Hematologic/Lymphatic: ABSENT: easy bleeding, easy bruising, lymphadenopathy Physical Exam Vital Signs: Temp Pulse Resp BP Pulse Ox 97.7 F 57 L 16 121/65 98 01/18/20 11:34 01/18/20 16:00 01/18/20 16:00 01/18/20 11:34 01/18/20 16:00 Intake & Output 01/17/20 01/18/20 01/19/20 06:59 06:59 06:59 Intake Total 210 2834 Output Total 750 Balance -540 2834 Weight 52.1 kg General appearance: PRESENT: no acute distress Eye exam: PRESENT: EOMI, PERRLA. ABSENT: scleral icterus Mouth exam: PRESENT: neck supple. ABSENT: moist Neck exam: ABSENT: lymphadenopathy, meningismus, tenderness, thyromegaly, tracheal deviation Respiratory exam: PRESENT: clear to auscultation [place]. ABSENT: crackles Cardiovascular exam: PRESENT: +S1, +S2, systolic murmur GI/Abdominal exam: PRESENT: normal bowel sounds, soft. ABSENT: organomegaly, tenderness Extremities exam: ABSENT: pedal edema Neurological exam: PRESENT: alert, awake, oriented to person, oriented to place Psychiatric exam: PRESENT: appropriate affect Skin exam: PRESENT: dry. ABSENT: erythema, mottled, rash Results Laboratory Results: 01/18/20 05:45 01/18/20 14:47 01/17/20 01/17/20 01/18/20 18:47 20:26 05:45 WBC 10.1 RBC 3.26 L Hgb 10.5 L D Hct 29.6 L MCV 91 MCH 32.3 MCHC 35.5 RDW 13.9 Plt Count 186 Seg Neutrophils % 56.7 Sodium 131.2 L Potassium 2.9 L* Chloride 103 Carbon Dioxide 14 L Anion Gap 14 BUN 65 H Creatinine 6.95 H Est GFR ( Amer) 10 L Glucose 601 H* Calcium 8.5 Magnesium Total Bilirubin 0.4 AST 22 Alkaline Phosphatase 84 Total Protein 5.8 L Albumin 3.5 Lipase 13.3 L Urine Color YELLOW Urine Appearance CLEAR Urine pH 6.0 Ur Specific [place] 1.008 Urine Protein 100 H Urine Glucose (UA) >=500 H Urine Ketones NEGATIVE Urine Blood MODERATE H Urine Nitrite NEGATIVE Ur Leukocyte Esterase SMALL H Urine WBC (Auto) 15 Urine RBC (Auto) 3 01/18/20 01/18/20 01/18/20 05:45 05:45 14:47 WBC RBC Hgb Hct MCV MCH MCHC RDW Plt Count Seg Neutrophils % Sodium 136.5 L 139.4 Potassium 2.9 L* 3.3 L Chloride 111 H 114 H Carbon Dioxide 15 L 15 L Anion Gap 11 10 BUN 65 H 61 H Creatinine 6.46 H 6.34 H Est GFR ( Amer) 11 L 11 L Glucose 118 H 191 H Calcium 8.2 L 8.4 Magnesium 1.9 Total Bilirubin AST Alkaline Phosphatase Total Protein Albumin Lipase Urine Color Urine Appearance Urine pH Ur Specific [place] Urine Protein Urine Glucose (UA) Urine Ketones Urine Blood Urine Nitrite Ur Leukocyte Esterase Urine WBC (Auto) Urine RBC (Auto) Impressions: Abdomen/Pelvis CT 01/17/20 17:45 IMPRESSION: 1. MULTIPLE NONOBSTRUCTING CALCULI IN BOTH KIDNEYS. 2. EXTENSIVE COARSE CALCIFICATIONS THROUGHOUT THE PANCREAS CONSISTENT CHRONIC PANCREATITIS. 3. NO OTHER SIGNIFICANT OR ACUTE PROCESS IN THE ABDOMEN OR PELVIS. Chest X-Ray 01/17/20 17:51 IMPRESSION: NO ACUTE RADIOGRAPHIC FINDING IN THE CHEST. Assessment & Plan - Diagnosis (1) Acute kidney injury superimposed on chronic kidney disease Plan: Patient has got acute chronic kidney disease secondary to chronic diarrhea/hypovolemia. His C. difficile has been ruled out especially given the fact that he was on antibiotics recently. Continue on IV fluids and his renal functions already showing improvement. Please note there is no nephrology coverage on the weekend. (2) Diarrhea Qualifiers: Diarrhea type: unspecified type Qualified Code(s): R19.7 - Diarrhea, unspecified Is this a current diagnosis for this admission?: Yes Plan: Antibiotic induced likely. However C. difficile is negative which is encouraging. Further management as per Dr. Rodriguez. (3) Hypertension Qualifiers: Hypertension type: essential hypertension Qualified Code(s): I10 - Essential (primary) hypertension Is this a current diagnosis for this admission?: Yes Plan: Controlled. (4) Metabolic acidosis Is this a current diagnosis for this admission?: Yes Plan: Secondary to chronic diarrhea. Increase oral sodium bicarbonate replacements. (5) Type 2 diabetes mellitus Qualifiers: Chronic kidney disease stage: stage 4 (severe) Is this a current diagnosis for this admission?: Yes Plan: As per Dr. Rodriguez. (6) Hypokalemia Plan: Will start replacements.
[2020-01-18] MEDS: SODIUM BICARBONATE 650 MG TABLET PO SCH (21:44)
[2020-01-19] MEDS: NORMAL SALINE 1000 ML 1,000 ML IV PRN ×2 (03:49→14:16)
[2020-01-19 04:44] LABS: ABSOLUTE EOSINOPHILS # (AUTO) 0.2 10^3/uL (0.0-0.6); ABSOLUTE MONOCYTES (AUTO) 0.9 10^3/uL (0.1-1.4); ABSOLUTE NEUT (AUTO) 6.5 10^3/uL (1.7-8.2); BASOPHILS % (AUTO) 0.3 % (0-2); EOSINOPHILS % (AUTO) 1.6 % (0-6); HEMATOCRIT 27.9 % (37.9-51.0); HEMOGLOBIN 9.6 g/dL (13.5-17.0); LYMPHOCYTES % (AUTO) 34.2 % (13-45); MEAN CORPUSCULAR HEMOGLOBIN 31.7 pg (27.0-33.4); MEAN CORPUSCULAR HGB CONC 34.2 g/dL (32.0-36.0); MEAN CORPUSCULAR VOLUME 93 fl (80-97); MONOCYTES % (AUTO) 7.9 % (3-13); PLATELET COUNT 179 10^3/uL (150-450); RED BLOOD COUNT 3.02 10^6/uL (4.35-5.55); RED CELL DISTRIBUTION WIDTH 14.4 % (11.5-14.0); TOTAL CELLS COUNTED % (AUTO) 100 %; WHITE BLOOD COUNT 11.6 10^3/uL (4.0-10.5)
[2020-01-19 05:02] LABS: ANION GAP 11 (5-19); BLOOD UREA NITROGEN 57 mg/dL (7-20); CALCIUM 8.2 mg/dL (8.4-10.2); CARBON DIOXIDE 13 mmol/L (22-30); CHLORIDE 118 mmol/L (98-107); POTASSIUM 3.1 mmol/L (3.6-5.0)
[2020-01-19 05:40] LABS: GLUCOSE 44 mg/dL (75-110)
[2020-01-19] MEDS: HEPARIN SOD (PORCINE) 5,000 UNIT/ML 1 ML VIAL SUBCUT SCH ×3 (05:46→22:19)
[2020-01-19] MEDS: SODIUM BICARBONATE 650 MG TABLET PO SCH ×3 (05:48→22:19)
[2020-01-19] MEDS: FAMOTIDINE 20 MG TABLET PO SCH (09:09)
[2020-01-19] MEDS: CALCITRIOL 0.25 MCG CAPSULE PO SCH ×2 (09:09→18:15)
[2020-01-19] MEDS: MAGNESIUM OXIDE 400 MG TABLET PO SCH (09:09)
[2020-01-19] MEDS: PHENOBARBITAL 64.8 MG TABLET PO SCH (09:09)
[2020-01-19] MEDS: INSULIN GLARGINE,HUM.REC.ANLOG 1,000 UNIT/10 ML VIAL SUBCUT SCH ×2 (09:09→18:17)
[2020-01-19] MEDS: POTASSIUM CHLORIDE 10 MEQ TABLET.ER PO SCH (09:09)
[2020-01-19] MEDS: INSULIN LISPRO 100 UNIT/ML 3 ML VIAL SUBCUT SCH ×4 (10:00→22:19)
[2020-01-19] MEDS: AMLODIPINE BESYLATE 10 MG TABLET PO SCH (10:00)
[2020-01-19] MEDS: OXYCODONE HCL IR 5 MG TABLET PO PRN ×2 (10:07→20:52)
[2020-01-19] MEDS ORDERED: POTASSIUM CHLORIDE 10 MEQ TABLET.ER PO ONE (15:29)
--- NOTE | 2020-01-19 15:31 | PDOC PROGRESS REPORT ---
Subjective Progress Note for:: 01/19/20 Subjective:: Patient had episode of hypoglycemia. His sliding scale coverage was held for lunch. He denied any chest pain or difficulty with breathing. No fever or chills. No nausea or vomiting but p.o intake remain a challenge due to dislike for hospital food. Reason For Visit: ACUTE RENAL FAILURE Physical Exam Vital Signs: Temp Pulse Resp BP Pulse Ox 97.8 F 56 L 16 151/76 H 100 01/19/20 11:48 01/19/20 11:48 01/19/20 11:48 01/19/20 11:48 01/19/20 11:48 Intake & Output 01/18/20 01/19/20 01/20/20 06:59 06:59 07:59 Intake Total 210 4700 1000 Output Total 750 700 Balance -540 4000 1000 Weight 52.1 kg 52.1 kg General appearance: PRESENT: thin Head exam: PRESENT: atraumatic, normocephalic Eye exam: PRESENT: conjunctiva pink. ABSENT: scleral icterus Ear exam: PRESENT: TM's normal bilaterally Mouth exam: PRESENT: moist Respiratory exam: PRESENT: clear to auscultation [place] Cardiovascular exam: PRESENT: RRR. ABSENT: diastolic murmur, rubs, systolic murmur Vascular exam: ABSENT: pallor GI/Abdominal exam: PRESENT: normal bowel sounds, soft. ABSENT: distended, guarding, mass, organolmegaly, rebound, tenderness Extremities exam: ABSENT: pedal edema Neurological exam: PRESENT: alert, awake, oriented to person, oriented to place, oriented to time, oriented to situation, CN II-XII grossly intact. ABSENT: motor sensory deficit Psychiatric exam: PRESENT: appropriate affect, normal mood. ABSENT: homicidal ideation, suicidal ideation Skin exam: PRESENT: dry, warm Results Laboratory Results: 01/19/20 04:18 01/19/20 04:18 01/18/20 01/19/20 01/19/20 14:47 04:18 04:18 WBC 11.6 H RBC 3.02 L Hgb 9.6 L Hct 27.9 L MCV 93 MCH 31.7 MCHC 34.2 RDW 14.4 H Plt Count 179 Seg Neutrophils % 56.0 Sodium 139.4 142.0 Potassium 3.3 L 3.1 L Chloride 114 H 118 H Carbon Dioxide 15 L 13 L Anion Gap 10 11 BUN 61 H 57 H Creatinine 6.34 H 6.11 H Est GFR ( Amer) 11 L 11 L Glucose 191 H 44 L Calcium 8.4 8.2 L Magnesium 1.8 01/17/20 18:47 Clean Catch Midstream Urine Culture - Final NO GROWTH 2 DAYS Impressions: Abdomen/Pelvis CT 01/17/20 17:45 IMPRESSION: 1. MULTIPLE NONOBSTRUCTING CALCULI IN BOTH KIDNEYS. 2. EXTENSIVE COARSE CALCIFICATIONS THROUGHOUT THE PANCREAS CONSISTENT CHRONIC PANCREATITIS. 3. NO OTHER SIGNIFICANT OR ACUTE PROCESS IN THE ABDOMEN OR PELVIS. Chest X-Ray 01/17/20 17:51 IMPRESSION: NO ACUTE RADIOGRAPHIC FINDING IN THE CHEST. Assessment & Plan - Diagnosis (1) Metabolic acidosis Is this a current diagnosis for this admission?: Yes Plan: Maintain on Bicarb and IV fluid support. (2) Acute renal failure Qualifiers: Acute renal failure type: unspecified Qualified Code(s): N17.9 - Acute kidney failure, unspecified Is this a current diagnosis for this admission?: Yes Plan: Continue current medication management. Obtain BMP in AM. (3) Type 2 diabetes mellitus Qualifiers: Chronic kidney disease stage: stage 4 (severe) Is this a current diagnosis for this admission?: Yes Plan: Continue current medication management. Patient may need adjustment in her basal insulin dosage and regimen. (4) Hypertension Qualifiers: Hypertension type: essential hypertension Qualified Code(s): I10 - Essential (primary) hypertension Is this a current diagnosis for this admission?: Yes Plan: Continue current medication management. (5) Chronic pain syndrome Is this a current diagnosis for this admission?: Yes Plan: Continue current medication management. - Time Time Spent with patient: 25-34 minutes Level of Care: IMCU Medications reviewed and adjusted accordingly: Yes Anticipated discharge: Home with Homehealth Within: Other - Inpatient Certification Based on my medical assessment, after consideration of the patient's comorbiditi es, presenting symptoms, or acuity I expect that the services needed warrant INPATIENT care.: Yes I certify that my determination is in accordance with my understanding of [facility]'s requirements for reasonable and necessary INPATIENT services [42 CFR 412.3e].: Yes Medical Necessity: Significant Comorbidiites Make Outpatient Treatment Too Risky, Need Close Monitoring Due to Risk of Patient Decompensation, Need For IV Fluids, Need for Pain Control, Risk of Complication if Not Cared For in Hospital, Risk of Diagnosis Which Will Require Inpatient Eval/Care/Monitoring 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 Obtain BMP,
[2020-01-19] MEDS ORDERED: INSULIN GLARGINE,HUM.REC.ANLOG 1,000 UNIT/10 ML VIAL (PYX) SUBCUT ONE (17:20)
[2020-01-20] MEDS: NORMAL SALINE 1000 ML 1,000 ML IV PRN ×3 (00:06→18:20)
[2020-01-20] MEDS: SODIUM BICARBONATE 650 MG TABLET PO SCH ×3 (05:14→21:43)
[2020-01-20] MEDS: HEPARIN SOD (PORCINE) 5,000 UNIT/ML 1 ML VIAL SUBCUT SCH ×3 (05:14→21:39)
[2020-01-20 06:11] LABS: ABSOLUTE EOSINOPHILS # (AUTO) 0.2 10^3/uL (0.0-0.6); ABSOLUTE MONOCYTES (AUTO) 0.7 10^3/uL (0.1-1.4); ABSOLUTE NEUT (AUTO) 4.9 10^3/uL (1.7-8.2); BASOPHILS % (AUTO) 0.4 % (0-2); EOSINOPHILS % (AUTO) 2.5 % (0-6); HEMATOCRIT 27.7 % (37.9-51.0); HEMOGLOBIN 9.5 g/dL (13.5-17.0); LYMPHOCYTES % (AUTO) 34.1 % (13-45); MEAN CORPUSCULAR HEMOGLOBIN 31.5 pg (27.0-33.4); MEAN CORPUSCULAR HGB CONC 34.3 g/dL (32.0-36.0); MEAN CORPUSCULAR VOLUME 92 fl (80-97); MONOCYTES % (AUTO) 7.5 % (3-13); PLATELET COUNT 155 10^3/uL (150-450); RED BLOOD COUNT 3.01 10^6/uL (4.35-5.55); RED CELL DISTRIBUTION WIDTH 14.8 % (11.5-14.0); SEGMENTED NEUTROPHILS % (AUTO) 55.5 % (42-78); TOTAL CELLS COUNTED % (AUTO) 100 %; WHITE BLOOD COUNT 8.8 10^3/uL (4.0-10.5)
[2020-01-20 06:35] LABS: ANION GAP 11 (5-19); BLOOD UREA NITROGEN 51 mg/dL (7-20); CALCIUM 8.1 mg/dL (8.4-10.2); CARBON DIOXIDE 13 mmol/L (22-30); CHLORIDE 115 mmol/L (98-107); POTASSIUM 3.9 mmol/L (3.6-5.0)
[2020-01-20 06:41] LABS: GLUCOSE 58 mg/dL (75-110)
[2020-01-20] MEDS: INSULIN LISPRO 100 UNIT/ML 3 ML VIAL SUBCUT SCH ×4 (08:10→21:46)
[2020-01-20] MEDS: INSULIN GLARGINE,HUM.REC.ANLOG 1,000 UNIT/10 ML VIAL SUBCUT SCH (10:01)
[2020-01-20] MEDS: FAMOTIDINE 20 MG TABLET PO SCH (10:02)
[2020-01-20] MEDS: AMLODIPINE BESYLATE 10 MG TABLET PO SCH (10:06)
[2020-01-20] MEDS: MAGNESIUM OXIDE 400 MG TABLET PO SCH (10:06)
[2020-01-20] MEDS: PHENOBARBITAL 64.8 MG TABLET PO SCH (10:06)
[2020-01-20] MEDS: POTASSIUM CHLORIDE 10 MEQ TABLET.ER PO SCH (10:06)
[2020-01-20] MEDS: CALCITRIOL 0.25 MCG CAPSULE PO SCH ×2 (10:06→17:11)
--- NOTE | 2020-01-20 12:14 | PDOC PROGRESS REPORT ---
Subjective Progress Note for:: 01/20/20 Subjective:: Patient had another episode of hypoglycemia this am. His oral intake remain a challenge. Patient denied any chest pain or difficulty with breathing. No fever or chills. No nausea or vomiting. Reason For Visit: ACUTE RENAL FAILURE Physical Exam Vital Signs: Temp Pulse Resp BP Pulse Ox 98.2 F 59 L 16 173/79 H 100 01/20/20 08:03 01/20/20 08:03 01/20/20 08:03 01/20/20 08:03 01/20/20 08:03 Intake & Output 01/19/20 01/20/20 01/21/20 05:59 06:59 06:59 Intake Total 1000 Output Total Balance 1000 Weight Physical Exam: General appearance: PRESENT: thin Head exam: PRESENT: atraumatic, normocephalic Eye exam: PRESENT: conjunctiva pink. ABSENT: pallor, scleral icterus Ear exam: PRESENT: TM's normal bilaterally Mouth exam: PRESENT: moist Respiratory exam: PRESENT: clear to auscultation [place] Cardiovascular exam: PRESENT: RRR. ABSENT: diastolic murmur, rubs, systolic murmur GI/Abdominal exam: PRESENT: normal bowel sounds, soft. ABSENT: distended, guarding, mass, organomegaly, rebound, tenderness Extremities exam: ABSENT: pedal edema Neurological exam: PRESENT: alert, awake, oriented to person, oriented to place, oriented to time, oriented to situation, CN II-XII grossly intact. ABSENT: motor sensory deficit Psychiatric exam: PRESENT: appropriate affect, normal mood. ABSENT: homicidal ideation, suicidal ideation Skin exam: PRESENT: dry, warm Results Laboratory Results: 01/20/20 05:22 01/20/20 05:22 01/20/20 01/20/20 05:22 05:22 WBC 8.8 RBC 3.01 L Hgb 9.5 L Hct 27.7 L MCV 92 MCH 31.5 MCHC 34.3 RDW 14.8 H Plt Count 155 Seg Neutrophils % 55.5 Sodium 139.3 Potassium 3.9 Chloride 115 H Carbon Dioxide 13 L Anion Gap 11 BUN 51 H Creatinine 5.40 H Est GFR ( Amer) 13 L Glucose 58 L Calcium 8.1 L Magnesium 1.6 01/17/20 18:47 Clean Catch Midstream Urine Culture - Final NO GROWTH 2 DAYS Impressions: Abdomen/Pelvis CT 01/17/20 17:45 IMPRESSION: 1. MULTIPLE NONOBSTRUCTING CALCULI IN BOTH KIDNEYS. 2. EXTENSIVE COARSE CALCIFICATIONS THROUGHOUT THE PANCREAS CONSISTENT CHRONIC PANCREATITIS. 3. NO OTHER SIGNIFICANT OR ACUTE PROCESS IN THE ABDOMEN OR PELVIS. Chest X-Ray 01/17/20 17:51 IMPRESSION: NO ACUTE RADIOGRAPHIC FINDING IN THE CHEST. Assessment & Plan - Diagnosis (1) Metabolic acidosis Is this a current diagnosis for this admission?: Yes (2) Acute renal failure Qualifiers: Acute renal failure type: unspecified Qualified Code(s): N17.9 - Acute kidney failure, unspecified Is this a current diagnosis for this admission?: Yes (3) Type 2 diabetes mellitus Qualifiers: Chronic kidney disease stage: stage 4 (severe) Is this a current diagnosis for this admission?: Yes Plan: Change Lantus insulin to 10 units SC q AM. D/C evening dose of Lantus Insulin. Continue Humalog insulin sliding scale premeal and qhs coverage. (4) Hypertension Qualifiers: Hypertension type: essential hypertension Qualified Code(s): I10 - Essential (primary) hypertension Is this a current diagnosis for this admission?: Yes (5) Chronic pain syndrome Is this a current diagnosis for this admission?: Yes - Time Time Spent with patient: 25-34 minutes Level of Care: IMCU Medications reviewed and adjusted accordingly: Yes Anticipated discharge: Home with Homehealth Within: Other - Inpatient Certification Based on my medical assessment, after consideration of the patient's comorbidities, presenting symptoms, or acuity I expect that the services needed warrant INPATIENT care.: Yes I certify that my determination is in accordance with my understanding of Medicare's requirements for reasonable and necessary INPATIENT services [42 CFR 412.3e].: Yes Medical Necessity: Significant Comorbidiites Make Outpatient Treatment Too Risky, Need Close Monitoring Due to Risk of Patient Decompensation, Need For IV Fluids, Need For Continuous Telemetry Monitoring, Risk of Complication if Not Cared For in Hospital, Risk of Diagnosis Which Will Require Inpatient Eval/Care/Monitoring 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 Continue on other current me dication management.
--- NOTE | 2020-01-20 17:21 | CDI QUERY ---
<BRETT CARDONA - Last Filed: 01/20/20 17:20> CDI Query CDI Review: Dear Provider: To better reflect your patients severity of illness, morbidity, and resource utilization Please specify and document in the Progress Notes and Discharge Summary if you are monitoring / treating / evaluating any of the following conditions: Query Clinical indicators Anemia of chronic disease Dilutional anemia Unable to determine Other Per Progress Notes: H/H 9.5/ 27.7 History of CKD IV The terms probable, suspected, likely, possible or still to be ruled out may be used if you are unable to determine the exact nature of a condition. Thank you, Clinical Documentation Physician Advisors JIMBO Cheema RN, BSN RN Office [phone] Office [phone] <DAMIAN MCDANIELS - Last Filed: 01/21/20 06:28> CDI Query Agree with Query: No - direct your query at his PCP.
[2020-01-20] MEDS ORDERED: INSULIN GLARGINE,HUM.REC.ANLOG 1,000 UNIT/10 ML VIAL SUBCUT SCH (18:00)
[2020-01-20] MEDS: OXYCODONE HCL IR 5 MG TABLET PO PRN (18:22)
[2020-01-20] MEDS ORDERED: CLONIDINE HCL INJ/PF 1000 MCG/10 ML SDV INJ ONE (22:15)
[2020-01-20] MEDS ORDERED: CLONIDINE HCL 0.2 MG TABLET PO ONE (23:10)
[2020-01-21 04:04] LABS: ANION GAP 6 (5-19); BLOOD UREA NITROGEN 47 mg/dL (7-20); CALCIUM 8.7 mg/dL (8.4-10.2); CARBON DIOXIDE 18 mmol/L (22-30); CHLORIDE 112 mmol/L (98-107); GLUCOSE 223 mg/dL (75-110); POTASSIUM 4.2 mmol/L (3.6-5.0)
[2020-01-21] MEDS: SODIUM BICARBONATE 650 MG TABLET PO SCH ×2 (06:10→15:30)
[2020-01-21] MEDS: HEPARIN SOD (PORCINE) 5,000 UNIT/ML 1 ML VIAL SUBCUT SCH ×3 (06:11→21:50)
--- NOTE | 2020-01-21 06:24 | EKG REPORT ---
SEVERITY:- ABNORMAL ECG - SINUS RHYTHM RUN OF VENTRICULAR PREMATURE COMPLEXES NONSPECIFIC LATERAL ST-T CHANGES : Confirmed by: Maged Avalos MD 21-Jan-2020 06:24:05
[2020-01-21] MEDS: INSULIN LISPRO 100 UNIT/ML 3 ML VIAL SUBCUT SCH ×3 (08:32→17:11)
--- NOTE | 2020-01-21 08:39 | PDOC PROGRESS REPORT ---
Subjective Progress Note for:: 01/21/20 Subjective:: Patient is currently doing fair No chest pain no short of breath Patient's kidney function is stable Not on her baseline around 4 Reason For Visit: ACUTE RENAL FAILURE Physical Exam Vital Signs: Temp Pulse Resp BP Pulse Ox 98.5 F 62 16 141/73 H 99 01/21/20 08:00 01/21/20 08:00 01/21/20 08:00 01/21/20 08:00 01/21/20 08:00 Intake & Output 01/20/20 01/21/20 01/22/20 06:59 06:59 06:59 Intake Total 4863 Output Total 2445 Balance 2418 Weight 58.1 kg General appearance: PRESENT: no acute distress, well-developed, well-nourished Head exam: PRESENT: atraumatic, normocephalic Eye exam: PRESENT: conjunctiva pink, EOMI, PERRLA. ABSENT: scleral icterus Ear exam: PRESENT: normal external ear exam Mouth exam: PRESENT: moist, tongue midline Neck exam: PRESENT: full ROM. ABSENT: carotid bruit, JVD, lymphadenopathy, thyromegaly Respiratory exam: PRESENT: clear to auscultation [place] Cardiovascular exam: PRESENT: RRR. ABSENT: diastolic murmur, rubs, systolic murmur Pulses: PRESENT: normal dorsalis pedis pul, +2 pedal pulses bilateral Vascular exam: PRESENT: normal capillary refill GI/Abdominal exam: PRESENT: normal bowel sounds, soft. ABSENT: distended, guarding, mass, organolmegaly, rebound, tenderness Rectal exam: PRESENT: deferred Musculoskeletal exam: PRESENT: ambulatory Neurological exam: PRESENT: alert, awake, oriented to person, oriented to place, oriented to time, oriented to situation, CN II-XII grossly intact. ABSENT: motor sensory deficit Psychiatric exam: PRESENT: appropriate affect, normal mood. ABSENT: homicidal ideation, suicidal ideation Skin exam: PRESENT: dry, intact, warm. ABSENT: cyanosis, rash Results Laboratory Results: 01/20/20 05:22 01/21/20 03:23 01/21/20 01/21/20 03:23 03:23 Sodium 136.0 L Potassium 4.2 Chloride 112 H Carbon Dioxide 18 L Anion Gap 6 BUN 47 H Creatinine 5.14 H Est GFR ( Amer) 14 L Glucose 223 H Calcium 8.7 Magnesium 1.5 L Impressions: Abdomen/Pelvis CT 01/17/20 17:45 IMPRESSION: 1. MULTIPLE NONOBSTRUCTING CALCULI IN BOTH KIDNEYS. 2. EXTENSIVE COARSE CALCIFICATIONS THROUGHOUT THE PANCREAS CONSISTENT CHRONIC PANCREATITIS. 3. NO OTHER SIGNIFICANT OR ACUTE PROCESS IN THE ABDOMEN OR PELVIS. Chest X-Ray 01/17/20 17:51 IMPRESSION: NO ACUTE RADIOGRAPHIC FINDING IN THE CHEST. Assessment & Plan - Diagnosis (1) Acute renal failure Qualifiers: Acute renal failure type: unspecified Qualified Code(s): N17.9 - Acute kidney failure, unspecified Is this a current diagnosis for this admission?: Yes Plan: Cut down the IV fluid to 70 cc/h I think will wait for the nephrology to further evaluate (2) Type 2 diabetes mellitus Qualifiers: Chronic kidney disease stage: stage 4 (severe) Is this a current diagnosis for this admission?: Yes Plan: stable (3) Metabolic acidosis Is this a current diagnosis for this admission?: Yes Plan: Currently all stable continues with p.o. sodium bicarb (4) Hypertension Qualifiers: Hypertension type: essential hypertension Qualified Code(s): I10 - Essential (primary) hypertension Is this a current diagnosis for this admission?: Yes (5) Hyperlipidemia Qualifiers: Hyperlipidemia type: unspecified Qualified Code(s): E78.5 - Hyperlipidemia, unspecified Is this a current diagnosis for this admission?: Yes (6) Chronic obstructive pulmonary disease Qualifiers: COPD type: unspecified COPD Qualified Code(s): J44.9 - Chronic obstructive pulmonary disease, unspecified Is this a current diagnosis for this admission?: Yes Plan: Currently all stable (7) Diarrhea Qualifiers: Diarrhea type: unspecified type Qualified Code(s): R19.7 - Diarrhea, unspecified Is this a current diagnosis for this admission?: Yes Plan: Currently all resolved (8) Chronic pain syndrome Is this a current diagnosis for this admission?: Yes - Time Time Spent with patient: 15-24 minutes Level of Care: IMCU Medications reviewed and adjusted accordingly: Yes Anticipated discharge: Home Within: within 24 hours - Plan Summary Plan Summary: Continues to current medical management reduce the IV fluid will wait for the nephrology
[2020-01-21] MEDS: POTASSIUM CHLORIDE 10 MEQ TABLET.ER PO SCH (09:23)
[2020-01-21] MEDS: CALCITRIOL 0.25 MCG CAPSULE PO SCH ×2 (09:24→17:11)
[2020-01-21] MEDS: MAGNESIUM OXIDE 400 MG TABLET PO SCH (09:24)
[2020-01-21] MEDS: AMLODIPINE BESYLATE 10 MG TABLET PO SCH (09:24)
[2020-01-21] MEDS: PHENOBARBITAL 64.8 MG TABLET PO SCH (09:24)
[2020-01-21] MEDS: FAMOTIDINE 20 MG TABLET PO SCH (09:25)
[2020-01-21] MEDS ORDERED: INSULIN GLARGINE,HUM.REC.ANLOG 1,000 UNIT/10 ML VIAL SUBCUT SCH (10:00)
--- NOTE | 2020-01-21 10:31 | PDOC PROGRESS REPORT ---
Subjective Progress Note for:: 01/21/20 Subjective:: Patient was seen today sitting up in his bed. At the time he was doing well. He claims that he has not had diarrhea for several days, after having it daily for a couple of weeks. No issues with urination, produced 2,245mL of urine yesterday. Denies chest pain or SOB. Reason For Visit: ACUTE RENAL FAILURE Physical Exam Vital Signs: Temp Pulse Resp BP Pulse Ox 98.5 F 62 16 141/73 H 99 01/21/20 08:00 01/21/20 08:00 01/21/20 08:00 01/21/20 08:00 01/21/20 08:00 Intake & Output 01/20/20 01/21/20 01/22/20 06:59 06:59 06:59 Intake Total 4863 Output Total 2445 Balance 2418 Weight 58.1 kg General appearance: PRESENT: no acute distress, well-developed, well-nourished Mouth exam: PRESENT: dry mucosa, neck supple. ABSENT: moist Neck exam: ABSENT: JVD, tracheal deviation Respiratory exam: PRESENT: clear to auscultation [place]. ABSENT: accessory muscle use, crackles, rales, wheezes Cardiovascular exam: PRESENT: +S1, +S2, systolic murmur GI/Abdominal exam: PRESENT: normal bowel sounds, soft. ABSENT: organomegaly, tenderness Extremities exam: ABSENT: pedal edema, tenderness, +1 edema, +2 edema Musculoskeletal exam: PRESENT: normal inspection. ABSENT: tenderness Neurological exam: PRESENT: alert, awake, oriented to person, oriented to place, oriented to time, oriented to situation Psychiatric exam: PRESENT: appropriate affect, normal mood Skin exam: PRESENT: dry, intact, warm. ABSENT: cyanosis, erythema Results Laboratory Results: 01/20/20 05:22 01/21/20 03:23 01/21/20 01/21/20 03:23 03:23 Sodium 136.0 L Potassium 4.2 Chloride 112 H Carbon Dioxide 18 L Anion Gap 6 BUN 47 H Creatinine 5.14 H Est GFR ( Amer) 14 L Glucose 223 H Calcium 8.7 Magnesium 1.5 L Impressions: Abdomen/Pelvis CT 01/17/20 17:45 IMPRESSION: 1. MULTIPLE NONOBSTRUCTING CALCULI IN BOTH KIDNEYS. 2. EXTENSIVE COARSE CALCIFICATIONS THROUGHOUT THE PANCREAS CONSISTENT CHRONIC PANCREATITIS. 3. NO OTHER SIGNIFICANT OR ACUTE PROCESS IN THE ABDOMEN OR PELVIS. Chest X-Ray 01/17/20 17:51 IMPRESSION: NO ACUTE RADIOGRAPHIC FINDING IN THE CHEST. Assessment & Plan - Diagnosis (1) Acute kidney injury superimposed on chronic kidney disease Plan: nonoliguric ERNESTO from dehydration, other factors affecting him include possible ATN from the recent infection and antibiotic use. Currently improving, creatinine and BUN keep trending down. Will continue on normal saline at 70mL and an hour. That will give him 1750mL of IV fluids, plus his oral intake. Will look to monitor the creatinine for one more day. If creatinine improves the 4s or below or stays at 5.1, then he may be discharged and can follow up with me in my office in 14 days post discharge. (2) Anemia Plan: will look to order labs, pending results patient may need retacrit (3) Hypomagnesemia Plan: Since he is no longer having diarrhea, will look to increase magnesium to 2 400mg mag ox pills. Will need to watch for diarrhea with the increase in magnesium. (4) Hypokalemia Plan: resolved on PO klor-con (5) Metabolic acidosis Is this a current diagnosis for this admission?: Yes Plan: improving (6) Hypertension Qualifiers: Hypertension type: essential hypertension Qualified Code(s): I10 - Essential (primary) hypertension Is this a current diagnosis for this admission?: Yes Plan: Looks to be ranging up and down. Will reassess in the outpatient setting. (7) Diarrhea Qualifiers: Diarrhea type: unspecified type Qualified Code(s): R19.7 - Diarrhea, unspecified Is this a current diagnosis for this admission?: Yes Plan: looks to have resolved (8) Type 2 diabetes mellitus Qualifiers: Chronic kidney disease stage: stage 4 (severe) Is this a current diagnosis for this admission?: Yes
[2020-01-21 11:49] LABS: IRON(TIBC) 67.2 ug/dL (49-181)
[2020-01-21 12:07] LABS: ABSOLUTE RETICS # 0.045 10^6/uL (0.028-0.122); RETICULOCYTE COUNT (AUTO) 1.49 % (0.66-2.85)
[2020-01-21] MEDS: NORMAL SALINE 1000 ML 1,000 ML IV PRN (15:30)
[2020-01-21] MEDS ORDERED: MAGNESIUM OXIDE 400 MG TABLET PO SCH (18:00)
[2020-01-21] MEDS: OXYCODONE HCL IR 5 MG TABLET PO PRN (19:58)
[2020-01-22 05:03] LABS: ANION GAP 12 (5-19); BLOOD UREA NITROGEN 50 mg/dL (7-20); CALCIUM 8.8 mg/dL (8.4-10.2); CARBON DIOXIDE 16 mmol/L (22-30); CHLORIDE 110 mmol/L (98-107); GLUCOSE 87 mg/dL (75-110); POTASSIUM 4.2 mmol/L (3.6-5.0)
[2020-01-22] MEDS: SODIUM BICARBONATE 650 MG TABLET PO SCH ×2 (05:35→05:53)
[2020-01-22] MEDS: HEPARIN SOD (PORCINE) 5,000 UNIT/ML 1 ML VIAL SUBCUT SCH (05:36)
[2020-01-22] MEDS: INSULIN LISPRO 100 UNIT/ML 3 ML VIAL SUBCUT SCH ×2 (05:36→08:26)
[2020-01-22 08:11] VITALS: BP 135/69
--- NOTE | 2020-01-22 09:04 | PDOC DISCHARGE SUMMARY ---
Impression - Admit/DC Date/PCP Admission Date/Primary Care Provider: 01/17/20 18:11 PEDRO RODRIGUEZ MD Discharge Date: 01/22/20 - Discharge Diagnosis (1) Acute renal failure Is this a current diagnosis for this admission?: Yes (2) Type 2 diabetes mellitus Is this a current diagnosis for this admission?: Yes (3) Metabolic acidosis Is this a current diagnosis for this admission?: Yes (4) Hypertension Is this a current diagnosis for this admission?: Yes (5) Hyperlipidemia Is this a current diagnosis for this admission?: Yes (6) Chronic obstructive pulmonary disease Is this a current diagnosis for this admission?: Yes (7) Diarrhea Is this a current diagnosis for this admission?: Yes (8) Chronic pain syndrome Is this a current diagnosis for this admission?: Yes - Additional Information Discharge Diet: Diabetic Discharge Activity: Activity As Tolerated Referrals: PEDRO RODRIGUEZ MD [Primary Care Provider] - 01/28/20 10:30 am MOSES LOPEZ PA-C [ALLIED HEALTH PROFESSIONAL] - 02/07/20 10:00 am Prescriptions: Sodium Bicarbonate [Sodium Bicarbonate 650 mg Tablet] 1,300 mg PO Q8 #90 tablet Home Medications: Phenobarbital [Phenobarbital 64.8 mg Tablet] 64.8 mg PO DAILY 05/04/13 Insulin Detemir [Levemir Flextouch] 15 unit SQ BID 09/12/15 Amlodipine Besylate [Norvasc 10 mg Tablet] 10 mg PO DAILY 01/17/20 Calcitriol 0.5 mcg PO BID 01/17/20 Magnesium Oxide [Mag-Ox 400 mg Tablet] 400 mg PO DAILY 01/17/20 Oxycodone HCl [Roxicodone] 5 mg PO QIDP PRN 01/17/20 Sodium Bicarbonate [Sodium Bicarbonate 650 mg Tablet] 1,300 mg PO Q8 #90 tablet 01/22/20 History of Present Illiness History of Present Illness: JUAN ROSSI is a 64 year old male This is a 64-year-old male with a history of the type 2 diabetes history of the hypertension hyperlipidemia chronic kidney disease stage IV came to the emergency department with worsening the kidney functions done as outpatients today with a creatinine of 7.11. Patients came to see me in my office couple of days back for loose stool and concern about the C. difficile due to recently patient's got the antibiotic for the finger infections. Is denied any abdominal pain no nausea no vomiting and order the blood work in the stool for C. difficile but patients did not go until today Today's patient's blood work shows the patient potassium is 3.1 and patient's creatinine was 7.11. Usually see her Dr. Hendricks for the chronic kidney disease stage IV with a baseline creatinine around [address] discussed with the Dr[address] Hendricks and suggest definitely patients need IV fluid and further evaluations to be hospitalized. When I saw the patient in the ER denied any abdominal pain no nausea no vomiting I started the patient on a Flagyl yesterday and patient diarrhea is currently all stopped Patient is denied any chest pain no short of breath Patient also see [facility] today for a lipoma Hospital Course Hospital Course: This is a 64-year-old male admitting in the hospital because of the worsening the kidney functions and severe metabolic acidosis Patient have a stage IV kidney disease recently have a loose stools which make the patient's more dehydrated renal failure and severe metabolic acidosis Was treated with the IV fluid and IV sodium bicarb initially and switch to the p.o. sodium bicarb patient's admitting kidney functions with the creatinine was 7.15 and a discharging is 4.37 range is patient's baseline Patient seen by the nephrology Dr. Hendricks and discussed with him and suggest to follow outpatients Since C. difficile is negative and patient does not have any diarrhea anymore His blood sugars later adjusted the insulins instead of twice a day only once a day Discussed with the patient's to check the blood sugar at home's drink more water follow in office 1 week and follow-up with the nephrology as per schedule in 2 weeks Patient otherwise p.o. intake is fair patient is walking the hallway without any problems Physical Exam Vital Signs: Temp Pulse Resp BP Pulse Ox 97.9 F 60 16 135/69 H 100 01/22/20 08:09 01/22/20 08:09 01/22/20 08:09 01/22/20 08:09 01/22/20 08:09 Intake & Output 01/21/20 01/22/20 01/23/20 06:59 06:59 06:59 Intake Total 5259 480 Output Total 3975 1525 Balance 2814 -1045 Weight 58.1 kg 60.3 kg General appearance: PRESENT: no acute distress, well-developed, well-nourished Head exam: PRESENT: atraumatic, normocephalic Eye exam: PRESENT: conjunctiva pink, EOMI, PERRLA. ABSENT: scleral icterus Ear exam: PRESENT: normal external ear exam Mouth exam: PRESENT: moist, tongue midline Neck exam: ABSENT: carotid bruit, JVD, lymphadenopathy, thyromegaly Respiratory exam: PRESENT: clear to auscultation [place]. ABSENT: rales, rhonchi, wheezes Cardiovascular exam: PRESENT: RRR. ABSENT: diastolic murmur, rubs, systolic murmur Pulses: PRESENT: normal dorsalis pedis pul Vascular exam: PRESENT: normal capillary refill GI/Abdominal exam: PRESENT: normal bowel sounds, soft. ABSENT: distended, guarding, mass, organolmegaly, rebound, tenderness Rectal exam: PRESENT: deferred Extremities exam: PRESENT: full ROM. ABSENT: calf tenderness, clubbing, pedal edema Neurological exam: PRESENT: alert, awake, oriented to person, oriented to place, oriented to time, oriented to situation, CN II-XII grossly intact. ABSENT: motor sensory deficit Psychiatric exam: PRESENT: appropriate affect, normal mood. ABSENT: homicidal ideation, suicidal ideation Skin exam: PRESENT: dry, intact, warm. ABSENT: cyanosis, rash Results Laboratory Results: WBC 8.8 10^3/uL (4.0-10.5) 01/20/20 05:22 RBC 3.01 10^6/uL (4.35-5.55) L 01/20/20 05:22 Hgb 9.5 g/dL (13.5-17.0) L 01/20/20 05:22 Hct 27.7 % (37.9-51.0) L 01/20/20 05:22 MCV 92 fl (80-97) 01/20/20 05:22 MCH 31.5 pg (27.0-33.4) 01/20/20 05:22 MCHC 34.3 g/dL (32.0-36.0) 01/20/20 05:22 RDW 14.8 % (11.5-14.0) H 01/20/20 05:22 Plt Count 155 10^3/uL (150-450) 01/20/20 05:22 Lymph % (Auto) 34.1 % (13-45) 01/20/20 05:22 [place] % (Auto) 7.5 % (3-13) 01/20/20 05:22 Eos % (Auto) 2.5 % (0-6) 01/20/20 05:22 Baso % (Auto) 0.4 % (0-2) 01/20/20 05:22 Reticulocyte # 0.045 10^6/uL (0.028-0.122) 01/21/20 03:23 Absolute Neuts (auto) 4.9 10^3/uL (1.7-8.2) 01/20/20 05:22 Absolute Lymphs (auto) 3.0 10^3/uL (0.5-4.7) 01/20/20 05:22 Absolute Monos (auto) 0.7 10^3/uL (0.1-1.4) 01/20/20 05:22 Absolute Eos (auto) 0.2 10^3/uL (0.0-0.6) 01/20/20 05:22 Absolute Basos (auto) 0.0 10^3/uL (0.0-0.2) 01/20/20 05:22 Seg Neutrophils % 55.5 % (42-78) 01/20/20 05:22 Retic Count (auto) 1.49 % (0.66-2.85) 01/21/20 03:23 Sodium 138.2 mmol/L (137-145) 01/22/20 04:22 Potassium 4.2 mmol/L (3.6-5.0) 01/22/20 04:22 Chloride 110 mmol/L (98-107) H 01/22/20 04:22 Carbon Dioxide 16 mmol/L (22-30) L 01/22/20 04:22 Anion Gap 12 (5-19) 01/22/20 04:22 BUN 50 mg/dL (7-20) H 01/22/20 04:22 Creatinine 4.37 mg/dL (0.52-1.25) H 01/22/20 04:22 Est GFR ( Amer) 17 (>60) L 01/22/20 04:22 Est GFR (MDRD) Non-Af 14 (>60) L 01/22/20 04:22 Glucose 87 mg/dL (75-110) 01/22/20 04:22 POC Glucose 92 mg/dL (70-110) 01/22/20 07:56 Calcium 8.8 mg/dL (8.4-10.2) 01/22/20 04:22 Magnesium 1.6 mg/dL (1.6-2.3) 01/22/20 04:22 Iron 67.2 ug/dL (49-181) 01/21/20 03:23 TIBC 183 ug/dL (250-450) L 01/21/20 03:23 % Saturation 37 % 01/21/20 03:23 Ferritin 133.00 ng/mL (17.9-464.0) 01/21/20 03:23 Total Bilirubin 0.4 mg/dL (0.2-1.3) 01/17/20 20:26 Direct Bilirubin 0.2 mg/dL (0.0-0.4) 01/17/20 20:26 Neonat Total Bilirubin Not Reportable 01/17/20 20:26 Neonat Direct Bilirubin Not Reportable 01/17/20 20:26 Neonat Indirect Bili Not Reportable 01/17/20 20:26 AST 22 U/L (17-59) 01/17/20 20:26 ALT 82 U/L (<50) H 01/17/20 20:26 Alkaline Phosphatase 84 U/L (38-126) 01/17/20 20:26 Total Protein 5.8 g/dL (6.3-8.2) L 01/17/20 20:26 Albumin 3.5 g/dL (3.5-5.0) 01/17/20 20:26 Lipase 13.3 U/L (23-300) L 01/17/20 20:26 Vitamin B12 577.0 pg/mL (239-931) 01/21/20 03:23 Folate 11.70 ng/mL (>2.76) 01/21/20 03:23 Urine Color YELLOW 01/17/20 18:47 Urine Appearance CLEAR 01/17/20 18:47 Urine pH 6.0 (5.0-9.0) 01/17/20 18:47 Ur Specific [place] 1.008 01/17/20 18:47 Urine Protein 100 mg/dL (NEGATIVE) H 01/17/20 18:47 Urine Glucose (UA) >=500 mg/dL (NEGATIVE) H 01/17/20 18:47 Urine Ketones NEGATIVE mg/dL (NEGATIVE) 01/17/20 18:47 Urine Blood MODERATE (NEGATIVE) H 01/17/20 18:47 Urine Nitrite NEGATIVE (NEGATIVE) 01/17/20 18:47 Urine Bilirubin NEGATIVE (NEGATIVE) 01/17/20 18:47 Urine Urobilinogen NEGATIVE mg/dL (<2.0) 01/17/20 18:47 Ur Leukocyte Esterase SMALL (NEGATIVE) H 01/17/20 18:47 Urine WBC (Auto) 15 /HPF 01/17/20 18:47 Urine RBC (Auto) 3 /HPF 01/17/20 18:47 Squamous Epi Cells Auto <1 /HPF 01/17/20 18:47 Urine Mucus (Auto) RARE /LPF 01/17/20 18:47 Urine Ascorbic Acid NEGATIVE (NEGATIVE) 01/17/20 18:47 Stl C. Difficile GDH Ag NEGATIVE (NEGATIVE) 01/17/20 19:45 Stl C.difficile Tox A&B NEGATIVE (NEGATIVE) 01/17/20 19:45 Urine Opiates Screen NEGATIVE 01/17/20 18:47 Urine Methadone Screen NEGATIVE 01/17/20 18:47 Ur Barbiturates Screen UNCONFIRMED POSITIVE 01/17/20 18:47 Ur Phencyclidine Scrn NEGATIVE 01/17/20 18:47 Ur Amphetamines Screen NEGATIVE 01/17/20 18:47 U Benzodiazepines Scrn NEGATIVE 01/17/20 18:47 Urine Cocaine Screen NEGATIVE 01/17/20 18:47 U Marijuana (THC) Screen NEGATIVE 01/17/20 18:47 Impressions: Abdomen/Pelvis CT 01/17/20 17:45 IMPRESSION: 1. MULTIPLE NONOBSTRUCTING CALCULI IN BOTH KIDNEYS. 2. EXTENSIVE COARSE CALCIFICATIONS THROUGHOUT THE PANCREAS CONSISTENT CHRONIC PANCREATITIS. 3. NO OTHER SIGNIFICANT OR ACUTE PROCESS IN THE ABDOMEN OR PELVIS. Chest X-Ray 01/17/20 17:51 IMPRESSION: NO ACUTE RADIOGRAPHIC FINDING IN THE CHEST. Plan Time Spent: Greater than 30 Minutes - Follow in office 1 week repeat the Chem-7 Stroke Is this a Stroke Patient?: No Acute Heart Failure - Is this a Heart Failure Patient?: No
== END 2020-01-22 09:08 | disposition home or self-care (01) | DRG 683 ==
LOC: ER 16:15 → EH 18:11 → 3S 19:45
PROVIDERS: ADMIT Family Medicine; ATTEND Family Medicine
DX: N17.9 Acute kidney failure, unspecified (principal); E87.2 Acidosis; J44.9 Chronic obstructive pulmonary disease, unspecified; G89.4 Chronic pain syndrome; E11.22 Type 2 diabetes mellitus with diabetic chronic kidney disease; I12.9 Hypertensive chronic kidney disease with stage 1 through stage 4 chronic kidney disease, or unspecified chronic kidney disease; N18.4 Chronic kidney disease, stage 4 (severe); M13.819 Other specified arthritis, unspecified shoulder; M79.644 Pain in right finger(s); E78.5 Hyperlipidemia, unspecified; R19.7 Diarrhea, unspecified; M54.9 Dorsalgia, unspecified; E11.649 Type 2 diabetes mellitus with hypoglycemia without coma; D63.1 Anemia in chronic kidney disease; E83.42 Hypomagnesemia; E87.6 Hypokalemia; F17.210 Nicotine dependence, cigarettes, uncomplicated; Z79.4 Long term (current) use of insulin; Z79.899 Other long term (current) drug therapy; Z87.828 Personal history of other (healed) physical injury and trauma
CPT/HCPCS: 36415; 71045; 74176; 80048; 80307; 81001; 82607; 82728; 82746; 82962; 83540; 83550; 83690; 83735; 85025; 85045; 87040; 87070; 87086; 87324; 87449; 93005; 93010; 96360; 99285; J1644; J1815; J3480; J3490; J7030

== ENCOUNTER → 2020-01-17 | Outpatient (CLI) | payer MEDICARE, MEDICAID ==
[2020-01-17 15:02] LABS: ABSOLUTE BASOPHILS # (AUTO) 0.1 10^3/uL (0.0-0.2); ABSOLUTE EOSINOPHILS # (AUTO) 0.1 10^3/uL (0.0-0.6); ABSOLUTE LYMPHOCYTES (AUTO) 2.5 10^3/uL (0.5-4.7); ABSOLUTE MONOCYTES (AUTO) 0.6 10^3/uL (0.1-1.4); ABSOLUTE NEUT (AUTO) 7.5 10^3/uL (1.7-8.2); BASOPHILS % (AUTO) 0.5 % (0-2); EOSINOPHILS % (AUTO) 1.4 % (0-6); LYMPHOCYTES % (AUTO) 23.5 % (13-45); MEAN CORPUSCULAR HEMOGLOBIN 32.4 pg (27.0-33.4); MEAN CORPUSCULAR HGB CONC 35.1 g/dL (32.0-36.0); MEAN CORPUSCULAR VOLUME 92 fl (80-97); MONOCYTES % (AUTO) 5.6 % (3-13); PLATELET COUNT 210 10^3/uL (150-450); RED BLOOD COUNT 4.01 10^6/uL (4.35-5.55); RED CELL DISTRIBUTION WIDTH 14.3 % (11.5-14.0); TOTAL CELLS COUNTED % (AUTO) 100 %; WHITE BLOOD COUNT 10.8 10^3/uL (4.0-10.5)
[2020-01-17 15:11] LABS: ANION GAP 19 (5-19); BLOOD UREA NITROGEN 66 mg/dL (7-20); CALCIUM 9.3 mg/dL (8.4-10.2); CHLORIDE 106 mmol/L (98-107); GLUCOSE 315 mg/dL (75-110); POTASSIUM 3.1 mmol/L (3.6-5.0)
[2020-01-17 15:31] LABS: CARBON DIOXIDE 10 mmol/L (22-30)
== END ==
LOC: OD 14:05
PROVIDERS: ATTEND Family Medicine
DX: R19.7 Diarrhea, unspecified (principal)
CPT/HCPCS: 36415; 80048; 85025

== ENCOUNTER → 2020-05-23 | Outpatient (CLI) | payer MEDICARE, MEDICAID ==
[2020-05-23 16:01] LABS: ABSOLUTE EOSINOPHILS # (AUTO) 0.2 10^3/uL (0.0-0.6); ABSOLUTE LYMPHOCYTES (AUTO) 2.8 10^3/uL (0.5-4.7); ABSOLUTE MONOCYTES (AUTO) 0.6 10^3/uL (0.1-1.4); ABSOLUTE NEUT (AUTO) 5.7 10^3/uL (1.7-8.2); BASOPHILS % (AUTO) 0.3 % (0-2); EOSINOPHILS % (AUTO) 2.2 % (0-6); HEMATOCRIT 38.9 % (37.9-51.0); HEMOGLOBIN 12.9 g/dL (13.5-17.0); MEAN CORPUSCULAR HEMOGLOBIN 30.6 pg (27.0-33.4); MEAN CORPUSCULAR HGB CONC 33.1 g/dL (32.0-36.0); MEAN CORPUSCULAR VOLUME 92 fl (80-97); MONOCYTES % (AUTO) 6.2 % (3-13); PLATELET COUNT 159 10^3/uL (150-450); RED BLOOD COUNT 4.21 10^6/uL (4.35-5.55); RED CELL DISTRIBUTION WIDTH 14.3 % (11.5-14.0); SEGMENTED NEUTROPHILS % (AUTO) 61.3 % (42-78); TOTAL CELLS COUNTED % (AUTO) 100 %; WHITE BLOOD COUNT 9.3 10^3/uL (4.0-10.5)
[2020-05-23 16:27] LABS: ANION GAP 11 (5-19); BLOOD UREA NITROGEN 60 mg/dL (7-20); CALCIUM 10.6 mg/dL (8.4-10.2); CARBON DIOXIDE 16 mmol/L (22-30); CHLORIDE 107 mmol/L (98-107); GLUCOSE 271 mg/dL (75-110); POTASSIUM 4.1 mmol/L (3.6-5.0)
== END ==
LOC: OD 15:38
PROVIDERS: ATTEND Physician Assistant Medical
DX: E83.42 Hypomagnesemia (principal); E87.5 Hyperkalemia; I12.9 Hypertensive chronic kidney disease with stage 1 through stage 4 chronic kidney disease, or unspecified chronic kidney disease; N18.4 Chronic kidney disease, stage 4 (severe)
CPT/HCPCS: 36415; 80048; 83735; 85025

== ENCOUNTER 2020-06-05 12:48 | Observation (INO) | payer MEDICARE, MEDICAID ==
--- NOTE | 2020-06-05 13:00 | ER Document Report ---
ED Medical Screen (RME) - General Chief Complaint: Abnormal Lab Results Stated Complaint: ABNORMAL LABS Time Seen by Provider: 06/05/20 12:56 Primary Care Provider: MOSES LOPEZ PA-C [Primary Care Provider] - Follow up as needed Mode of Arrival: Ambulatory Information source: Patient Notes: 64-year-old male presented to ED for abnormal labs. He states the kidney doctor told him he that he needed to come to the emergency room and get some fluids and some lab work. He is alert oriented respirations regular nonlabored speaking in full sentences. States he does have some kidney problems he is not on dialysis he smokes a half a pack a week no alcohol no drugs. I have greeted and performed a rapid initial assessment of this patient. A comprehensive ED assessment and evaluation of the patient, analysis of test results and completion of medical decision making process will be conducted by an additional ED providers. TRAVEL OUTSIDE OF THE [place] IN LAST 30 DAYS: No - Related Data Allergies/Adverse Reactions: No Known Allergies Allergy (Verified 01/17/20 16:25) Past Medical History - Past Medical History Cardiac Medical History: Reports: Hx Hypertension Denies: Hx Coronary Artery Disease, Hx Heart Attack Pulmonary Medical History: Denies: Hx Asthma, Hx Bronchitis, Hx COPD, Hx Pneumonia Neurological Medical History: Reports: Hx Seizures. Denies: Hx Cerebrovascular Accident Endocrine Medical History: Reports: Hx Diabetes Mellitus Type 1, Hx Diabetes Mellitus Type 2 Renal/ Medical History: Denies: Hx Peritoneal Dialysis Musculoskeltal Medical History: Reports Hx Arthritis - shoulder Past Surgical History: Reports: Hx Orthopedic Surgery - toe - Immunizations Hx Diphtheria, Pertussis, Tetanus Vaccination: No Physical Exam - Vital signs Vitals: Temp Pulse Resp BP Pulse Ox 98.7 F 90 19 128/74 H 100 06/05/20 12:53 06/05/20 12:53 06/05/20 12:53 06/05/20 12:53 06/05/20 12:53 Course - Vital Signs Vital signs: Temp Pulse Resp BP Pulse Ox 98.7 F 90 19 128/74 H 100 06/05/20 12:53 06/05/20 12:53 06/05/20 12:53 06/05/20 12:53 06/05/20 12:53 Doctor's Discharge - Discharge Referrals: LOPEZ,MOSES M, PA-C [Primary Care Provider] - Follow up as needed
[2020-06-05 13:32] LABS: ABSOLUTE EOSINOPHILS # (AUTO) 0.3 10^3/uL (0.0-0.6); ABSOLUTE LYMPHOCYTES (AUTO) 2.3 10^3/uL (0.5-4.7); ABSOLUTE MONOCYTES (AUTO) 0.4 10^3/uL (0.1-1.4); ABSOLUTE NEUT (AUTO) 4.9 10^3/uL (1.7-8.2); BASOPHILS % (AUTO) 0.6 % (0-2); EOSINOPHILS % (AUTO) 3.4 % (0-6); HEMATOCRIT 37.1 % (37.9-51.0); HEMOGLOBIN 12.8 g/dL (13.5-17.0); LYMPHOCYTES % (AUTO) 28.7 % (13-45); MEAN CORPUSCULAR HEMOGLOBIN 31.5 pg (27.0-33.4); MEAN CORPUSCULAR HGB CONC 34.5 g/dL (32.0-36.0); MEAN CORPUSCULAR VOLUME 91 fl (80-97); MONOCYTES % (AUTO) 5.7 % (3-13); PLATELET COUNT 151 10^3/uL (150-450); RED BLOOD COUNT 4.06 10^6/uL (4.35-5.55); RED CELL DISTRIBUTION WIDTH 14.1 % (11.5-14.0); SEGMENTED NEUTROPHILS % (AUTO) 61.6 % (42-78); TOTAL CELLS COUNTED % (AUTO) 100 %; WHITE BLOOD COUNT 7.9 10^3/uL (4.0-10.5)
[2020-06-05 13:36] LABS: APPEARANCE,URINE CLEAR; BILIRUBIN,URINE NEGATIVE (NEGATIVE); COLOR,URINE STRAW; GLUCOSE, URINE >=500 mg/dL (NEGATIVE); KETONES,URINE NEGATIVE (NEGATIVE); PROTEIN,URINE 100 mg/dL (NEGATIVE); UROBILINOGEN,URINE NEGATIVE mg/dL (<2.0)
[2020-06-05 13:49] LABS: ALBUMIN 3.6 g/dL (3.5-5.0); ALKALINE PHOSPHATASE 59 U/L (38-126); ANION GAP 12 (5-19); ASPARTATE AMINO TRANSFERASE 40 U/L (17-59); BILIRUBIN,TOTAL 0.3 mg/dL (0.2-1.3); BLOOD UREA NITROGEN 87 mg/dL (7-20); CARBON DIOXIDE 12 mmol/L (22-30); CHLORIDE 104 mmol/L (98-107); POTASSIUM 4.7 mmol/L (3.6-5.0); TOTAL PROTEIN 6.2 g/dL (6.3-8.2)
--- NOTE | 2020-06-05 13:51 | ER Document Report ---
ED General - General Chief Complaint: Abnormal Lab Results Stated Complaint: ABNORMAL LABS Time Seen by Provider: 06/05/20 12:56 Primary Care Provider: MOSES LOPEZ PA-C [Primary Care Provider] - Follow up as needed Mode of Arrival: Ambulatory Notes: 64-year-old male presents with intermittent positional dizziness generalized weakness for about a week. He finished having diarrhea about a week ago was unable to do a stool sample because the diarrhea stopped it was seen this morning for labs and told to come to the ER for dehydration. He has a history of chronic kidney disease but is not on dialysis and follows with Dr. Ramirez. Has no specific areas of weakness no focal symptoms of numbness tingling or gait S instability. TRAVEL OUTSIDE OF THE [place] IN LAST 30 DAYS: No - Related Data Allergies/Adverse Reactions: No Known Allergies Allergy (Verified 06/05/20 14:10) Past Medical History - General Information source: Patient - Social History Smoking Status: Current Some Day Smoker Family History: Reviewed & Not Pertinent Patient has homicidal ideation: No - Past Medical History Cardiac Medical History: Reports: Hx Hypertension Denies: Hx Coronary Artery Disease, Hx Heart Attack Pulmonary Medical History: Denies: Hx Asthma, Hx Bronchitis, Hx COPD, Hx Pneumonia Neurological Medical History: Reports: Hx Seizures. Denies: Hx Cerebrovascular Accident Endocrine Medical History: Reports: Hx Diabetes Mellitus Type 1, Hx Diabetes Shivani litus Type 2 Renal/ Medical History: Denies: Hx Peritoneal Dialysis Musculoskeletal Medical History: Reports Hx Arthritis - shoulder Past Surgical History: Reports: Hx Orthopedic Surgery - toe - Immunizations Hx Diphtheria, Pertussis, Tetanus Vaccination: No Hx Pneumococcal Vaccination: 09/14/19 Review of Systems - Review of Systems Notes: REVIEW OF SYSTEMS GEN: Lysed weakness ENT: Denies sore throat, nasal discharge, ear pain EYES: Denies blurry vision, eye pain, discharge CV: Denies chest pain, palpitations, edema RESP: Denies cough, shortness of breath, wheezing GI: Denies abdominal pain, nausea, vomiting, diarrhea MSK: Denies joint pain/swelling, edema, SKIN: Denies rash, skin lesions LYMPH: Denies swollen glands/lymph nodes NEURO: Denies headache, focal weakness or numbness, dizziness PSYCH: Denies depression, suicidal or homicidal ideation PHYSICAL EXAMINATION General: No acute distress, well-nourished Head: Atraumatic, normocephalic ENT: Mouth normal, oropharynx moist, no exudates or tonsillar enlargement Eyes: Conjunctiva normal, pupils equal, lids normal Neck: No JVD, supple, no guarding CVS: Normal rate, regular rhythm, no murmurs Resp: No resp distress, equal and normal breath sounds bilaterally GI: Nondistended, soft, no tenderness to palpation, no rebound or guarding Ext: No deformities, no edema, normal range of motion in upper and lower ext Back: No CVA or midline TTP Skin: No rash, warm Lymphatic: No lymphadeopathy noted Neuro: Gait, no pronator drift symmetric face. Awake, alert. Face symmetric. GCS 15. Physical Exam - Vital signs Vitals: Temp Pulse Resp BP Pulse Ox 98.7 F 90 19 128/74 H 100 06/05/20 12:53 06/05/20 12:53 06/05/20 12:53 06/05/20 12:53 06/05/20 12:53 Course - Re-evaluation Re-evalutation: 06/05/20 14:12 Patient resents with generalized weakness and fatigue and abnormal labs as an outpatient. His exam is nonfocal and his vital signs appear normal Doubt acute stroke We will check electrolytes renal failure etc. Patient's labs show moderate hypercalcemia 12, moderate hyper glycemia with no DKA 06/05/20 14:[address] Ramirez. Agrees with gentle hydration admission Cussed with Dr. Aguilar for admission to telemetry - Vital Signs Vital signs: Temp Pulse Resp BP Pulse Ox 98.7 F 90 19 128/74 H 100 06/05/20 12:53 06/05/20 12:53 06/05/20 12:53 06/05/20 12:53 06/05/20 12:53 - Laboratory Result Diagrams: 06/05/20 13:12 06/05/20 13:12 Laboratory results interpreted by me: 06/05/20 06/05/20 06/05/20 13:12 13:12 13:12 RBC 4.06 L Hgb 12.8 L Hct 37.1 L RDW 14.1 H Sodium 128.4 L Carbon Dioxide 12 L BUN 87 H Creatinine 7.08 H Est GFR ( Amer) 10 L Est GFR (MDRD) Non-Af 8 L Glucose 425 H* Calcium 12.0 H* Ionized Calcium Sonali 1.46 H Phosphorus 8.0 H ALT 82 H Total Protein 6.2 L Lipase 18.3 L Urine Protein Urine Glucose (UA) Urine Blood 06/05/20 13:12 RBC Hgb Hct RDW Sodium Carbon Dioxide BUN Creatinine Est GFR ( Amer) Est GFR (MDRD) Non-Af Glucose Calcium Ionized Calcium [place] Phosphorus ALT Total Protein Lipase Urine Protein 100 H Urine Glucose (UA) >=500 H Urine Blood MODERATE H Critical Care Note - Critical Care Note Total time excluding time spent on procedures (mins): 31 Comments: The above patient is critically ill. Not including procedures, but including direct re-evaluations, speaking with patient and/or consultants, interpreting results, and documenting, I spent the total amount of minute listed listed above on critical care time Discharge - Discharge Clinical Impression: Hypercalcemia Condition: Good Disposition: ADMITTED OBSERVATION Admitting Provider: Lauren (Hospitalist) Unit Admitted: Telemetry Referrals: MOSES LOPEZ PA-C [Primary Care Provider] - Follow up as needed
[2020-06-05 14:04] LABS: GLUCOSE 425 mg/dL (75-110)
[2020-06-05] MEDS ORDERED: NORMAL SALINE 1000 ML 1,000 ML IV ONE (14:08)
[2020-06-05] MEDS ORDERED: RINGERS SOLUTION,LACTATED 1,000 ML IV ONE (14:11)
[2020-06-05 16:26] LABS: ALBUMIN 3.3 g/dL (3.5-5.0); ALKALINE PHOSPHATASE 43 U/L (38-126); ANION GAP 8 (5-19); ASPARTATE AMINO TRANSFERASE 51 U/L (17-59); BILIRUBIN,DIRECT 0.1 mg/dL (0.0-0.4); BILIRUBIN,TOTAL 0.4 mg/dL (0.2-1.3); BLOOD UREA NITROGEN 83 mg/dL (7-20); CARBON DIOXIDE 13 mmol/L (22-30); CHLORIDE 108 mmol/L (98-107); GLUCOSE 338 mg/dL (75-110); POTASSIUM 4.6 mmol/L (3.6-5.0); TOTAL PROTEIN 5.8 g/dL (6.3-8.2)
[2020-06-05] MEDS ORDERED: ACETAMINOPHEN 325 MG TABLET PO PRN (18:11)
[2020-06-05] MEDS ORDERED: GLUCAGON,HUMAN RECOMB 1 MG INJ IM PRN (18:16)
[2020-06-05] MEDS ORDERED: DEXTROSE 40% GEL 15 GM TUBE PO PRN ×2 (18:16)
[2020-06-05] MEDS ORDERED: DEXTROSE 50%-WATER 25 GM/50 ML DISP.SYRIN IV PRN ×2 (18:16)
--- NOTE | 2020-06-05 18:18 | PDOC H&P ---
History of Present Illness Admission Date/PCP: 06/05/20 15:31 MOSES LOPEZ PA-C Patient complains of: Sent from nephrology office for abnormal blood work History of Present Illness: JUAN ROSSI is a 64 year old male with history of chronic kidney disease. L ooking back at his labs he has dropped into stage IV approximately 15 months ago. When he had a follow-up appointment with his pigment furnace tender today his, bicarb was 12, serum creatinine was up to 7.08 and BUN was 87 with a phosphorus of 8.0 and a calcium of 12.0 (ionized 1.46). His glucose was also markedly high at 425. He actually appears quite comfortable. He will be admitted for acute on chronic kidney injury as well as treatment for the hyperphosphatemia. He will receive aggressive IV fluids. We will also place him on long-acting insulin with sliding scale coverage. Past Medical History Cardiac Medical History: Reports: Hypertension Denies: Coronary Artery Disease, Myocardial Infarction Pulmonary Medical History: Denies: Asthma, Bronchitis, Chronic Obstructive Pulmonary Disease (COPD), Pneumonia, Respiratory Failure EENT Medical History: Denies: Cataracts, Ears, Nose, Throat Neurological Medical History: Reports: Seizures Endocrine Medical History: Reports: Diabetes Mellitus Type 2 Renal/ Medical History: Reports: Chronic Kidney Disease Malignancy Medical History: Reports: None GI Medical History: Reports: None Musculoskeltal Medical History: Reports: Arthritis - shoulder Skin Medical History: Reports: None Psychiatric Medical History: Reports: None Traumatic Medical History: Reports: None Hematology: Denies: Anemia Infectious Medical History: Reports: None Past Surgical History Past Surgical History: Reports: Orthopedic Surgery - toe Social History Information Source: Patient, [facility] Records Lives with: Alone Smoking Status: Current Some Day Smoker Electronic Cigarette use?: No Frequency of Alcohol Use: None Hx Recreational Drug Use: No Hx Prescription Drug Abuse: No - Advance Directive Resuscitation Status: Full Code Family History Family History: Reviewed & Not Pertinent, DM, Malignancy Parental Family History Reviewed: Yes Children Family History Reviewed: Yes Sibling(s) Family History Reviewed.: Yes Medication/Allergy Home Medications: Phenobarbital [Phenobarbital 64.8 mg Tablet] 64.8 mg PO DAILY 05/04/13 Insulin Detemir [Levemir Flextouch] 12 unit SQ BID 09/12/15 Amlodipine Besylate [Norvasc 10 mg Tablet] 10 mg PO DAILY 01/17/20 Calcitriol 0.5 mcg PO BID 01/17/20 Magnesium Oxide [Mag-Ox 400 mg Tablet] 400 mg PO DAILY 01/17/20 Oxycodone HCl [Roxicodone] 10 mg PO QIDP PRN 01/17/20 Sodium Bicarbonate [Sodium Bicarbonate 650 mg Tablet] 1,300 mg PO Q8 #90 tablet 01/22/20 Allergies/Adverse Reactions: No Known Allergies Allergy (Verified 06/05/20 14:10) Review of Systems All systems: reviewed and no additional remarkable complaints except as stated Gastrointestinal: PRESENT: constipation, nausea Neurological: PRESENT: other - Lightheadedness Physical Exam Vital Signs: Temp Pulse Resp BP Pulse Ox 97.7 F 58 L 18 176/74 H 100 06/05/20 16:00 06/05/20 16:00 06/05/20 16:00 06/05/20 16:00 06/05/20 16:00 Intake & Output 06/04/20 06/05/20 06/06/20 06:59 06:59 06:59 Intake Total 1000 Balance 1000 Weight 54.7 kg General appearance: PRESENT: no acute distress, cooperative, thin, well- developed Head exam: PRESENT: atraumatic, normocephalic Eye exam: PRESENT: conjunctiva pink. ABSENT: scleral icterus - Dirty sclera Ear exam: PRESENT: normal external ear exam. ABSENT: bleeding, drainage Mouth exam: PRESENT: dry mucosa, tongue midline Neck exam: PRESENT: full ROM. ABSENT: carotid bruit, JVD, lymphadenopathy Respiratory exam: PRESENT: clear to auscultation [place], symmetrical, unlabored. ABSENT: accessory muscle use, prolonged expiratory phas, rales, rhonchi, tachypnea, wheezes Cardiovascular exam: PRESENT: RRR, +S1, +S2. ABSENT: diastolic murmur, irregular rhythm, systolic murmur, tachycardia GI/Abdominal exam: PRESENT: normal bowel sounds, soft. ABSENT: distended, guard ing, tenderness Rectal exam: PRESENT: deferred Gentrourinary exam: ABSENT: indwelling catheter Extremities exam: ABSENT: pedal edema Musculoskeletal exam: PRESENT: ambulatory, full ROM, normal inspection. ABSENT: deformity, dislocation Neurological exam: PRESENT: alert, awake, oriented to person, oriented to place, oriented to time, oriented to situation, CN II-XII grossly intact. ABSENT: altered, motor sensory deficit Psychiatric exam: PRESENT: flat affect. ABSENT: agitated, anxious Focused psych exam: ABSENT: delusional, paranoid, restlessness Skin exam: PRESENT: dry, normal color, warm. ABSENT: rash Results Laboratory Results: 06/05/20 13:12 06/05/20 15:51 06/05/20 06/05/20 06/05/20 13:12 13:12 13:12 WBC 7.9 RBC 4.06 L Hgb 12.8 L Hct 37.1 L MCV 91 MCH 31.5 MCHC 34.5 RDW 14.1 H Plt Count 151 Seg Neutrophils % 61.6 Sodium 128.4 L Potassium 4.7 Chloride 104 Carbon Dioxide 12 L Anion Gap 12 BUN 87 H Creatinine 7.08 H Est GFR ( Amer) 10 L Glucose 425 H* Calcium 12.0 H* Ionized Calcium S[place] 1.46 H Phosphorus 8.0 H Magnesium 2.3 Total Bilirubin 0.3 AST 40 Alkaline Phosphatase 59 Total Protein 6.2 L Albumin 3.6 Lipase 18.3 L Urine Color Urine Appearance Urine pH Ur Specific [place] Urine Protein Urine Glucose (UA) Urine Ketones Urine Blood Urine RBC (Auto) 06/05/20 06/05/20 13:12 15:51 WBC RBC Hgb Hct MCV MCH MCHC RDW Plt Count Seg Neutrophils % Sodium 129.0 L Potassium 4.6 Chloride 108 H Carbon Dioxide 13 L Anion Gap 8 BUN 83 H Creatinine 6.68 H Est GFR ( Amer) 10 L Glucose 338 H Calcium 11.0 H Ionized Calcium [place] Phosphorus Magnesium Total Bilirubin 0.4 AST 51 Alkaline Phosphatase 43 Total Protein 5.8 L Albumin 3.3 L Lipase Urine Color STRAW Urine Appearance CLEAR Urine pH 5.0 Ur Specific [place] 1.010 Urine Protein 100 H Urine Glucose (UA) >=500 H Urine Ketones NEGATIVE Urine Blood MODERATE H Urine RBC (Auto) 10 Assessment and Plan - Diagnosis (1) Acute kidney injury superimposed on chronic kidney disease Is this a current diagnosis for this admission?: Yes Plan: The patient has been stage IV chronic kidney disease for 16 months or so. He presents today with a lower GFR (10). He will need aggressive IV fluids and close monitoring of his renal function. (2) Hyperphosphatemia Is this a current diagnosis for this admission?: Yes Plan: We will start low-dose sevelamer and repeat blood work tomorrow (3) Hypercalcemia Is this a current diagnosis for this admission?: Yes Plan: We will utilize IV fluids for tonight. Bring his serum calcium down. (4) Metabolic acidosis Is this a current diagnosis for this admission?: Yes Plan: Likely from chronic kidney disease. Continue sodium bicarb (5) Hypertension Qualifiers: Hypertension type: essential hypertension Qualified Code(s): I10 - Essential (primary) hypertension Is this a current diagnosis for this admission?: Yes Plan: The patient is only listed as taking Norvasc 10 mg daily. I will monitor blood pressure overnight. We may need to add additional medication. He will be on a cardiac diet. (6) Hyperglycemia due to type 2 diabetes mellitus Qualifiers: Diabetes mellitus [facility] insulin use: with terminal manager use Qualified Code(s): E11.65 - Type 2 diabetes mellitus with hyperglycemia; Z79.4 - [facility] (current) use of insulin Is this a current diagnosis for this admission?: Yes Plan: We will substitute Lantus 15 units twice daily for his Levemir. In addition he will be on a sliding scale with Accu-Cheks before meals and at bedtime. We may need to increase his long-acting insulin. He will be on a controlled c arbohydrate free diet. (7) Seizure disorder Is this a current diagnosis for this admission?: Yes - Time Time Spent with patient: 35 or more minutes Medications reviewed and adjusted accordingly: Yes Anticipated discharge: Home Within: within 48 hours
[2020-06-05] MEDS ORDERED: OXYCODONE HCL IR 5 MG TABLET PO PRN (19:31)
[2020-06-05] MEDS: NORMAL SALINE 1000 ML 1,000 ML IV PRN (19:37)
[2020-06-05] MEDS: HEPARIN SOD (PORCINE) 5,000 UNIT/ML 1 ML VIAL SUBCUT SCH (22:04)
[2020-06-05] MEDS: SEVELAMER HCL 800 MG TABLET PO SCH (22:04)
[2020-06-05] MEDS: INSULIN GLARGINE,HUM.REC.ANLOG 1,000 UNIT/10 ML VIAL SUBCUT SCH (22:05)
[2020-06-05] MEDS: INSULIN LISPRO 100 UNIT/ML 3 ML VIAL SUBCUT SCH (22:06)
[2020-06-05] MEDS ORDERED: AMLODIPINE BESYLATE 10 MG TABLET PO SCH (23:00)
[2020-06-06] MEDS ORDERED: INSULIN LISPRO 100 UNIT/ML 3 ML VIAL SUBCUT SCH
[2020-06-06] MEDS: HEPARIN SOD (PORCINE) 5,000 UNIT/ML 1 ML VIAL SUBCUT SCH (05:31)
[2020-06-06] MEDS: NORMAL SALINE 1000 ML 1,000 ML IV PRN ×2 (05:57→11:49)
[2020-06-06 06:41] LABS: ALBUMIN 3.1 g/dL (3.5-5.0); ANION GAP 10 (5-19); BLOOD UREA NITROGEN 79 mg/dL (7-20); CARBON DIOXIDE 11 mmol/L (22-30); CHLORIDE 113 mmol/L (98-107); GLUCOSE 96 mg/dL (75-110); PHOSPHORUS 7.3 mg/dL (2.5-4.5); POTASSIUM 3.9 mmol/L (3.6-5.0)
[2020-06-06] MEDS: INSULIN LISPRO 100 UNIT/ML 3 ML VIAL SUBCUT SCH ×2 (07:28→11:48)
[2020-06-06] MEDS: SODIUM BICARBONATE 650 MG TABLET PO SCH ×2 (08:05→11:48)
[2020-06-06] MEDS: SEVELAMER HCL 800 MG TABLET PO SCH ×2 (08:06→11:47)
[2020-06-06] MEDS: INSULIN GLARGINE,HUM.REC.ANLOG 1,000 UNIT/10 ML VIAL SUBCUT SCH (09:21)
[2020-06-06] MEDS ORDERED: MAGNESIUM OXIDE 400 MG TABLET PO SCH (10:00)
[2020-06-06] MEDS ORDERED: PHENOBARBITAL 64.8 MG TABLET PO SCH (10:00)
[2020-06-06 11:43] VITALS: BP 137/65
--- NOTE | 2020-06-06 12:55 | PDOC DISCHARGE SUMMARY ---
Impression - Admit/DC Date/PCP Admission Date/Primary Care Provider: 06/05/20 15:31 MOSES LOPEZ PA-C Discharge Date: 06/06/20 - Discharge Diagnosis (1) Acute kidney injury superimposed on chronic kidney disease Is this a current diagnosis for this admission?: Yes (2) Hyperphosphatemia Is this a current diagnosis for this admission?: Yes (3) Hypercalcemia Is this a current diagnosis for this admission?: Yes (4) Metabolic acidosis Is this a current diagnosis for this admission?: Yes (5) Hypertension Is this a current diagnosis for this admission?: Yes (6) Hyperglycemia due to type 2 diabetes mellitus Is this a current diagnosis for this admission?: Yes (7) Seizure disorder Is this a current diagnosis for this admission?: Yes - Additional Information Resuscitation Status: Full Code Discharge Diet: Cardiac, Diabetic Discharge Activity: Activity As Tolerated Referrals: MOSES LOPEZ PA-C [Primary Care Provider] - Follow up as needed ([facility] WILL CALL PT TO MAKE APPOINTMENT TUESDAY) Prescriptions: Sevelamer HCl [Renagel 800 mg Tablet] 800 mg PO MEALS 15 Days #45 tablet Home Medications: Phenobarbital [Phenobarbital 64.8 mg Tablet] 64.8 mg PO DAILY 05/04/13 Insulin Detemir [Levemir Flextouch] 12 unit SQ BID 09/12/15 Amlodipine Besylate [Norvasc 10 mg Tablet] 10 mg PO DAILY 01/17/20 Magnesium Oxide [Mag-Ox 400 mg Tablet] 400 mg PO DAILY 01/17/20 Oxycodone HCl [Roxicodone] 10 mg PO QIDP PRN 01/17/20 Sodium Bicarbonate [Sodium Bicarbonate 650 mg Tablet] 1,300 mg PO Q8 #90 tablet 01/22/20 Amlodipine Besylate [Norvasc 10 mg Tablet] 10 mg PO QHS tablet 06/06/20 Magnesium Oxide [Mag-Ox 400 mg Tablet] 400 mg PO DAILY tablet 06/06/20 Oxycodone HCl [Oxy-Ir 5 mg Tablet] 5 mg PO Q6HP PRN tablet 06/06/20 Phenobarbital [Phenobarbital 64.8 mg Tablet] 64.8 mg PO DAILY tablet 06/06/20 Sevelamer HCl [Renagel 800 mg Tablet] 800 mg PO MEALS 15 Days #45 tablet 06/06/20 Sodium Bicarbonate [Sodium Bicarbonate 650 mg Tablet] 1,300 mg PO AC tablet History of Present Illiness History of Present Illness: JUAN ROSSI is a 64 year old male with history of chronic kidney disease. Looking back at his labs he has dropped into stage IV approximately 15 months ago. When he had a follow-up appointment with his dietary services director today his, bicarb was 12, serum creatinine was up to 7.08 and BUN was 87 with a phosphorus of 8.0 and a calcium of 12.0 (ionized 1.46). His glucose was also markedly high at 425. He actually appears quite comfortable. He will be admitted for acute on chronic kidney injury as well as treatment for the hyperphosphatemia. He will receive aggressive IV fluids. We will also place him on long-acting insulin with sliding scale coverage. Hospital Course Hospital Course: Patient had an uneventful hospital course. At the time of mission he was frustrated and wanted to leave. I did convince her to at least a 1 night to receive IV fluids. The morning labs were minimally improved and so I did give the patient another liter of normal saline prior to discharge. The nurse called me and was on the verge of leaving AGAINST MEDICAL ADVICE but was patient enough to wait until I was able to see him. Physical Exam Vital Signs: Temp Pulse Resp BP Pulse Ox 97.9 F 62 16 137/65 H 100 06/06/20 11:13 06/06/20 11:13 06/06/20 11:13 06/06/20 11:13 06/06/20 11:13 Intake & Output 06/05/20 06/06/20 06/07/20 06:59 06:59 06:59 Intake Total 2000 1409 Output Total 400 Balance 1600 1409 Weight 54.7 kg General appearance: PRESENT: no acute distress, cooperative, thin Respiratory exam: PRESENT: clear to auscultation [place], symmetrical, unlabored. ABSENT: rales, rhonchi, tachypnea, wheezes Cardiovascular exam: PRESENT: RRR, +S1, +S2 GI/Abdominal exam: PRESENT: normal bowel sounds, soft. ABSENT: tenderness Neurological exam: PRESENT: alert, awake, oriented to person, oriented to place, oriented to time, oriented to situation Results Laboratory Results: WBC 7.9 10^3/uL (4.0-10.5) 06/05/20 13:12 RBC 4.06 10^6/uL (4.35-5.55) L 06/05/20 13:12 Hgb 12.8 g/dL (13.5-17.0) L 06/05/20 13:12 Hct 37.1 % (37.9-51.0) L 06/05/20 13:12 MCV 91 fl (80-97) 06/05/20 13:12 MCH 31.5 pg (27.0-33.4) 06/05/20 13:12 MCHC 34.5 g/dL (32.0-36.0) 06/05/20 13:12 RDW 14.1 % (11.5-14.0) H 06/05/20 13:12 Plt Count 151 10^3/uL (150-450) 06/05/20 13:12 Lymph % (Auto) 28.7 % (13-45) 06/05/20 13:12 [place] % (Auto) 5.7 % (3-13) 06/05/20 13:12 Eos % (Auto) 3.4 % (0-6) 06/05/20 13:12 Baso % (Auto) 0.6 % (0-2) 06/05/20 13:12 Absolute Neuts (auto) 4.9 10^3/uL (1.7-8.2) 06/05/20 13:12 Absolute Lymphs (auto) 2.3 10^3/uL (0.5-4.7) 06/05/20 13:12 Absolute Monos (auto) 0.4 10^3/uL (0.1-1.4) 06/05/20 13:12 Absolute Eos (auto) 0.3 10^3/uL (0.0-0.6) 06/05/20 13:12 Absolute Basos (auto) 0.0 10^3/uL (0.0-0.2) 06/05/20 13:12 Seg Neutrophils % 61.6 % (42-78) 06/05/20 13:12 Sodium 133.5 mmol/L (137-145) L 06/06/20 05:57 Potassium 3.9 mmol/L (3.6-5.0) 06/06/20 05:57 Chloride 113 mmol/L (98-107) H 06/06/20 05:57 Carbon Dioxide 11 mmol/L (22-30) L 06/06/20 05:57 Anion Gap 10 (5-19) 06/06/20 05:57 BUN 79 mg/dL (7-20) H 06/06/20 05:57 Creatinine 6.74 mg/dL (0.52-1.25) H 06/06/20 05:57 Est GFR ( Amer) 10 (>60) L 06/06/20 05:57 Est GFR (MDRD) Non-Af 8 (>60) L 06/06/20 05:57 Glucose 96 mg/dL (75-110) 06/06/20 05:57 POC Glucose 153 mg/dL (70-110) H 06/06/20 11:12 Calcium 11.0 mg/dL (8.4-10.2) H 06/06/20 05:57 Ionized Calcium Sonal[place] 1.46 mmol/L (1.14-1.30) H 06/05/20 13:12 Phosphorus 7.3 mg/dL (2.5-4.5) H 06/06/20 05:57 Magnesium 2.3 mg/dL (1.6-2.3) 06/05/20 13:12 Total Bilirubin 0.4 mg/dL (0.2-1.3) 06/05/20 15:51 Direct Bilirubin 0.1 mg/dL (0.0-0.4) 06/05/20 15:51 Neonat Total Bilirubin Not Reportable 06/05/20 15:51 Neonat Direct Bilirubin Not Reportable 06/05/20 15:51 Neonat Indirect Bili Not Reportable 06/05/20 15:51 AST 51 U/L (17-59) 06/05/20 15:51 ALT 83 U/L (<50) H 06/05/20 15:51 Alkaline Phosphatase 43 U/L (38-126) 06/05/20 15:51 Total Protein 5.8 g/dL (6.3-8.2) L 06/05/20 15:51 Albumin 3.1 g/dL (3.5-5.0) L 06/06/20 05:57 Lipase 18.3 U/L (23-300) L 06/05/20 13:12 Urine Color STRAW 06/05/20 13:12 Urine Appearance CLEAR 06/05/20 13:12 Urine pH 5.0 (5.0-9.0) 06/05/20 13:12 Ur Specific [place] 1.010 06/05/20 13:12 Urine Protein 100 mg/dL (NEGATIVE) H 06/05/20 13:12 Urine Glucose (UA) >=500 mg/dL (NEGATIVE) H 06/05/20 13:12 Urine Ketones NEGATIVE mg/dL (NEGATIVE) 06/05/20 13:12 Urine Blood MODERATE (NEGATIVE) H 06/05/20 13:12 Urine Nitrite (Reflex) NEGATIVE (NEGATIVE) 06/05/20 13:12 Urine Bilirubin NEGATIVE (NEGATIVE) 06/05/20 13:12 Urine Urobilinogen NEGATIVE mg/dL (<2.0) 06/05/20 13:12 Leukocyte Esterase Rfl NEGATIVE (NEGATIVE) 06/05/20 13:12 Urine RBC (Auto) 10 /HPF 06/05/20 13:12 Urine WBC (Reflex) 5 /HPF 06/05/20 13:12 Urine Mucus (Auto) RARE /LPF 06/05/20 13:12 Urine Ascorbic Acid NEGATIVE (NEGATIVE) 06/05/20 13:12 Plan Health Concerns: Elderly patient with probably progressive kidney disease. Plan of Treatment: Follow-up with nephrology Goals: Maintain better hydration Time Spent: Greater than 30 Minutes Stroke Is this a Stroke Patient?: No Acute Heart Failure - Is this a Heart Failure Patient?: No
[2020-06-06] MEDS ORDERED: NORMAL SALINE 1000 ML 1,000 ML IV ONE (13:00)
== END 2020-06-06 15:13 | disposition home or self-care (01) ==
LOC: ER 12:48 → EH 15:31 → 4N 18:31
PROVIDERS: ADMIT Family Medicine; ATTEND Hospitalist
DX: N17.9 Acute kidney failure, unspecified (principal); I12.9 Hypertensive chronic kidney disease with stage 1 through stage 4 chronic kidney disease, or unspecified chronic kidney disease; E11.22 Type 2 diabetes mellitus with diabetic chronic kidney disease; E11.65 Type 2 diabetes mellitus with hyperglycemia; N18.4 Chronic kidney disease, stage 4 (severe); E83.39 Other disorders of phosphorus metabolism; E83.52 Hypercalcemia; E87.2 Acidosis; G40.909 Epilepsy, unspecified, not intractable, without status epilepticus; K59.00 Constipation, unspecified; R19.7 Diarrhea, unspecified; F17.210 Nicotine dependence, cigarettes, uncomplicated; Z79.899 Other long term (current) drug therapy; Z79.4 Long term (current) use of insulin; Z83.3 Family history of diabetes mellitus
CPT/HCPCS: 99291; 96360; 80069; 36415 ×2; 82962 ×2; 83690; 83735; 84100; 85025; 87070; 80053; 81001; 82330; A9270 ×10; J7030 ×2; G0378; J1815; J3490

== ENCOUNTER → 2020-06-05 | Outpatient (CLI) | payer MEDICARE, MEDICAID ==
[2020-06-05 10:39] LABS: ALBUMIN 4.1 g/dL (3.5-5.0); ANION GAP 11 (5-19); BLOOD UREA NITROGEN 89 mg/dL (7-20); CARBON DIOXIDE 14 mmol/L (22-30); CHLORIDE 108 mmol/L (98-107); GLUCOSE 230 mg/dL (75-110); PHOSPHORUS 7.7 mg/dL (2.5-4.5); POTASSIUM 4.8 mmol/L (3.6-5.0)
[2020-06-05 10:50] LABS: CALCIUM 12.6 mg/dL (8.4-10.2)
== END ==
LOC: OD 09:01
PROVIDERS: ATTEND Physician Assistant Medical
DX: N18.5 Chronic kidney disease, stage 5 (principal); E87.5 Hyperkalemia; R19.7 Diarrhea, unspecified
CPT/HCPCS: 36415; 80069

== ENCOUNTER → 2020-07-28 | Outpatient (CLI) | payer MEDICARE, MEDICAID ==
[2020-07-28 14:56] LABS: HEMATOCRIT 31.5 % (37.9-51.0); HEMOGLOBIN 10.8 g/dL (13.5-17.0); MEAN CORPUSCULAR HEMOGLOBIN 31.2 pg (27.0-33.4); MEAN CORPUSCULAR HGB CONC 34.2 g/dL (32.0-36.0); MEAN CORPUSCULAR VOLUME 91 fl (80-97); PLATELET COUNT 156 10^3/uL (150-450); RED BLOOD COUNT 3.46 10^6/uL (4.35-5.55); RED CELL DISTRIBUTION WIDTH 14.5 % (11.5-14.0); WHITE BLOOD COUNT 6.7 10^3/uL (4.0-10.5)
[2020-07-28 14:58] LABS: APPEARANCE,URINE CLEAR; BILIRUBIN,URINE NEGATIVE (NEGATIVE); COLOR,URINE YELLOW; GLUCOSE, URINE 50 mg/dL (NEGATIVE); KETONES,URINE NEGATIVE (NEGATIVE); LEUKOCYTE ESTERASE,URINE NEGATIVE (NEGATIVE); NITRITE,URINE NEGATIVE (NEGATIVE); PROTEIN,URINE 100 mg/dL (NEGATIVE); UROBILINOGEN,URINE NEGATIVE mg/dL (<2.0)
[2020-07-28 15:24] LABS: ALBUMIN 3.7 g/dL (3.5-5.0); ANION GAP 8 (5-19); BLOOD UREA NITROGEN 38 mg/dL (7-20); CALCIUM 8.2 mg/dL (8.4-10.2); CARBON DIOXIDE 26 mmol/L (22-30); CHLORIDE 104 mmol/L (98-107); GLUCOSE 206 mg/dL (75-110); POTASSIUM 4.3 mmol/L (3.6-5.0)
[2020-07-28 16:07] LABS: UR PRO/CREAT RATIO RESULT 2.5 mg/mg (0.0-0.2); URINE CREATININE 69.8 mg/dL (22-328); URINE PROTEIN 172.3 mg/dL (<12)
== END ==
LOC: OD 14:14
PROVIDERS: ATTEND Physician Assistant Medical
DX: N18.5 Chronic kidney disease, stage 5 (principal); D64.9 Anemia, unspecified; R80.1 Persistent proteinuria, unspecified; N25.0 Renal osteodystrophy; E83.42 Hypomagnesemia
CPT/HCPCS: 36415; 80069; 81001; 82570; 83735; 83970; 84156; 85027

== ENCOUNTER → 2020-11-25 | Outpatient (CLI) | payer MEDICARE, MEDICAID ==
[2020-11-25 16:45] LABS: ANION GAP 14 (5-19); BLOOD UREA NITROGEN 68 mg/dL (7-20); CALCIUM 8.1 mg/dL (8.4-10.2); CARBON DIOXIDE 16 mmol/L (22-30); CHLORIDE 107 mmol/L (98-107); GLUCOSE 177 mg/dL (75-110); POTASSIUM 3.1 mmol/L (3.6-5.0)
== END ==
LOC: OD 14:54
PROVIDERS: ATTEND Internal Medicine Nephrology
DX: N18.5 Chronic kidney disease, stage 5 (principal)
CPT/HCPCS: 36415; 80048

== ENCOUNTER → 2020-12-01 | Outpatient (CLI) | payer MEDICARE, MEDICAID ==
[2020-12-01 14:22] LABS: APPEARANCE,URINE CLEAR; BILIRUBIN,URINE NEGATIVE (NEGATIVE); COLOR,URINE STRAW; GLUCOSE, URINE 150 mg/dL (NEGATIVE); KETONES,URINE NEGATIVE (NEGATIVE); LEUKOCYTE ESTERASE,URINE NEGATIVE (NEGATIVE); NITRITE,URINE NEGATIVE (NEGATIVE); PROTEIN,URINE >=500 mg/dL (NEGATIVE); URINE SPECIFIC GRAVITY 1.012; UROBILINOGEN,URINE NEGATIVE mg/dL (<2.0)
[2020-12-01 14:24] LABS: ABSOLUTE EOSINOPHILS # (AUTO) 0.2 10^3/uL (0.0-0.6); ABSOLUTE LYMPHOCYTES (AUTO) 2.9 10^3/uL (0.5-4.7); ABSOLUTE MONOCYTES (AUTO) 0.4 10^3/uL (0.1-1.4); ABSOLUTE NEUT (AUTO) 5.6 10^3/uL (1.7-8.2); BASOPHILS % (AUTO) 0.5 % (0-2); EOSINOPHILS % (AUTO) 2.4 % (0-6); HEMATOCRIT 32.4 % (37.9-51.0); HEMOGLOBIN 10.8 g/dL (13.5-17.0); LYMPHOCYTES % (AUTO) 31.3 % (13-45); MEAN CORPUSCULAR HEMOGLOBIN 29.1 pg (27.0-33.4); MEAN CORPUSCULAR HGB CONC 33.4 g/dL (32.0-36.0); MEAN CORPUSCULAR VOLUME 87 fl (80-97); MONOCYTES % (AUTO) 4.8 % (3-13); PLATELET COUNT 212 10^3/uL (150-450); RED BLOOD COUNT 3.72 10^6/uL (4.35-5.55); RED CELL DISTRIBUTION WIDTH 14.6 % (11.5-14.0); TOTAL CELLS COUNTED % (AUTO) 100 %; WHITE BLOOD COUNT 9.2 10^3/uL (4.0-10.5)
[2020-12-01 14:47] LABS: ALBUMIN 3.1 g/dL (3.5-5.0); ANION GAP 11 (5-19); BLOOD UREA NITROGEN 70 mg/dL (7-20); CALCIUM 7.9 mg/dL (8.4-10.2); CARBON DIOXIDE 14 mmol/L (22-30); CHLORIDE 108 mmol/L (98-107); GLUCOSE 177 mg/dL (75-110); PHOSPHORUS 9.3 mg/dL (2.5-4.5)
[2020-12-01 16:16] LABS: UR PRO/CREAT RATIO RESULT 9.5 mg/mg (0.0-0.2); URINE PROTEIN 690.4 mg/dL (<12)
== END ==
LOC: OD 13:47
PROVIDERS: ATTEND Internal Medicine Nephrology
DX: N18.5 Chronic kidney disease, stage 5 (principal); N25.0 Renal osteodystrophy; D50.8 Other iron deficiency anemias; R80.1 Persistent proteinuria, unspecified; E83.42 Hypomagnesemia
CPT/HCPCS: 36415; 80069; 81001; 82570; 83735; 83970; 84156; 85025